=== PATIENT | female | born 1940 | race Caucasian/White ===

== ENCOUNTER 2023-06-04 14:23 | Emergency (ER) | payer MEDICARE, MEDICAID, SELFPAY ==
[2023-06-04] VITALS (11 sets, daily range): BP systolic 122–143; BP diastolic 58–74; PULSE 63–101; RESP 14–20; TEMP 35.9; O2SAT 96–100
--- NOTE | ~2023-06-04 | CT_ITS ---
EXAMINATION: CT abdomen pelvis w con DATE: 06/04/2023 16:05 INDICATION: abdominal pain TECHNIQUE: Computed tomography (CT) of the abdomen and pelvis was performed with 100 mL Omnipaque-350 intravenous contrast. Automated exposure control and iterative reconstruction technique were employe d. The dose-length product was 1494.59 mGy-cm. COMPARISON: None. FINDINGS: Lower thorax: Lingular and right middle lobe scar/atelectasis. Left lower lobe air cyst. Cardiomegaly . Coronary artery calcifications. Liver: Nodular liver border. Biliary/Gallbladder: Gallbladder is absent. No bile duct dilation. Pancreas: Fatty infiltration. Spleen: Granulomatous calcifications. Adrenals:No mass. Kidneys: No suspicious mass. Bilateral scarring and cortical thinning. Mild bilateral perinephric str anding. No obstructing calcification mild right pelviectasis and bilateral mid ureteral dilation, no obstructing calcification or mass. GI tract: Mild distal esophageal and antral wall edema. No small or large bowel dilation. Appendix no t visualized. Mesentery/Peritoneum: No ascites, mass, or free air. Retroperitoneum: No mass. Atherosclerotic abdominal aortic and/or arterial calcifications. Pelvis: Normal appearing urinary bladder. Absent uterus. Soft Tissues: Soft tissues and body wall unremarkable. Bones: No acute osseous finding. IMPRESSION: Mild esophagitis and antral gastritis. Nodular appearing liver border which can be seen with cirrhosis. Mild right pelviectasis and bilateral mid ureterectasis, no inflammatory changes or obstructing stone or mass detected. Reviewed, dictated and finalized at location K. S MANAGER IMPRESSION: Mild esophagitis and antral gastritis. Nodular appearing liver border which can be seen with cirrhosis. Mild right pelviectasis and bilateral mid ureterectasis, no inflammatory change s or obstructing stone or mass detected.
--- NOTE | 2023-06-04 14:35 | ED.ABDPAIN ---
HPI - Abdominal Pain General Chief Complaint: Abdominal Pain Stated Complaint: constipation with difficulty urinating Time Seen by Provider: 06/04/23 14:35 History of Present Illness HPI narrative: Patient is an 82-year-old female with history of AFib, chronic constipation here with constipation. She states that it has probably been about 2 weeks and she has been able to have a full bowel movement, her last stool output was a very small stool on 05/30. At home she has been using multiple ocos-lck-qaehmin treatments including suppositories, fleets enemas, laxatives without any improvement of her symptoms. She has had some increasing abdominal distension over this last week and she has now developed difficulty urinating which she suspects is due to her constipation. Last flatulence was sometime yesterday, is not passing flatulence today. She does note a prior cholecystectomy in the past. No nausea or vomiting. No prior history of obstruction. She denies any fever or chills. She is unsure of when her last colonoscopy was but believes it was normal. She has been struggling with constipation for the last 1 year intermittently, has not seen any specialist for this. Related Data Allergies Allergy/AdvReac Type Severity Reaction Status Date / Time No Known Allergies Allergy Unverified 06/04/23 14:23 Review of Systems Review of Systems: All systems reviewed & are unremarkable except as noted in HPI and below Exam Narrative: GENERAL: Well-appearing, well-nourished, and in no acute distress. HEAD: Normocephalic, atraumatic. EYES: PERRLA and EOMI. ENT: Nares clear. Mucous membranes moist. NECK: Supple. CHEST: Clear to auscultation. No respiratory distress. HEART: Regular rate and rhythm. Normal peripheral pulses. ABDOMEN: Soft, diffusely mildly tender with some abdominal distention present. EXTREMITIES: Normal range of motion. No edema. SKIN: Warm, dry, no rash. NEURO: No focal deficits. Alert and oriented x3. PSYCH: Normal mood and affect. Course Course Emergency Course: Chart review performed. Patient is here with abdominal pain and constipation, last BM Monday. No prior visits in our system. Patient seen evaluated, nontoxic appearing. Concern for obstruction versus constipation versus fecal impaction. Given age will do CT abdomen pelvis to assess for possible obstructing mass. Basic lab work and UA have also been ordered. Anticipate she will likely need fecal disimpaction and enema was performed here in the emergency department however will await imaging prior to intervention. CT grossly normal, on my review she does appear to have a large amount of stool within the colon and rectum. 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 Stool felt high up within the rectal vault however unable to reach sufficiently for disimpaction. Fleets enema given by RN. Discussed plan for continued home enemas and aggressive bowel clearance orally. She has been able to pee here multiple times without difficulty. The results of pertinent diagnostic studies and exam findings were discussed. The patient?s provisional diagnosis and plan of care were discussed with the patient and present family. The patient and/or present family expressed understanding of the diagnosis and plan. The nurse was instructed to provide written instructions and appropriate follow-up information. The patient understands their need and responsibility to obtain additional follow-up as instructed. The risks of medications administered and prescribed were discussed with the patient and family present. Vital Signs Vital signs: Vital Signs Temperature 96.7 F L 06/04/23 14:29 Pulse Rate 101 H 06/04/23 14:29 Respiratory Rate 18 06/04/23 14:29 Pulse Oximetry 100 06/04/23 14:29 Oxygen Delivery Room Air 06/04/23 14:29 Temperature 96.7 F L 06/04/23 14:29 Pulse Rate 66 06/04/23 17:33 Respiratory Rate 16 06/04/23 17:33 Blood Pressure 124/74 11
--- NOTE | 2023-06-04 14:36 | ECG_ITS ---
Measurements Intervals [place] Rate: 62 P: IN: 0 QRS: 29 QRSD: 82 T: 55 QT: 383 QTc: 390 Interpretive Statements ATRIAL FIBRILLATION LOW QRS VOLTAGE IN PRECORDIAL LEADS BASELINE ARTIFACT- I, II, III, AVR, AVF ABNORMAL ECG NO PREVIOUS ECG AVAILABLE FOR COMPARISON Electronically Signed On 06-04-2023 20:21:35 GYRO MECHANIC by Omer Fajardo D.O.
[2023-06-04 15:01] LABS: Basophils Absolute Auto 0.1 K/mm3 (0.0-0.1); Basophils Percent Auto 0.8 % (0.2-1.2); Eosinophils Absolute Auto 0.2 K/mm3 (0-0.3); Eosinophils Percent Auto 2.3 % (0-4.4); Hematocrit 37.2 % (37.0-47.0); Hemoglobin 11.8 g/dL (12.0-15.0); Immature Granulocyte Absolute 0.03 K/mm3 (0.00-0.031); Immature Granulocyte Percent A 0.5 % (0-0.5); Lymphocytes Absolute Auto 1.75 K/mm3 (0.9-3.2); Lymphocytes Percent Auto 26.9 % (18.3-44.2); Mean Corpuscular HGB Conc 31.7 g/dl (32-36); Mean Corpuscular Hemoglobin 31.1 pg (26-34); Mean Corpuscular Volume 97.9 fl (80-100); Mean Platelet Volume 10.4 fl (7.4-10.4); Monocytes Absolute Auto 0.5 K/mm3 (0.1-0.6); Monocytes Percent Auto 7.1 % (2.6-8.5); Neutrophils Absolute Auto 4.1 K/mm3 (1.3-6.7); Neutrophils Percent Auto 62.4 % (45.5-73.1); Platelet Count Result 237 k/mm3 (150-375); White Blood Count 6.5 K/mm3 (4.5-10.0)
[2023-06-04 15:09] LABS: Lactic Acid Reflex 1.5 mmol/L (0.7-2.0)
[2023-06-04 15:10] LABS: Alanine Aminotransferase 22 U/L (6-35); Albumin Level 4.2 g/dL (3.5-5.1); Alkaline Phosphatase 43 U/L (38-126); Anion Gap 6 mmol/L (8-16); Aspartate Amino Transferase 49 U/L (14-36); Bilirubin,Total 0.7 mg/dL (0.2-1.3); Blood Urea Nitrogen 20 mg/dL (7-17); Calcium 9.4 mg/dL (8.4-10.2); Carbon Dioxide 30 mmol/L (22-30); Chloride 103 mmol/L (98-107); Estimated CRCL calculation 37 ml/min; Estimated Glomerular Filt Rate 36; Glucose 106 mg/dL (65-110); Lipase 67 U/L (23-300); Potassium 3.9 mmol/L (3.4-5.0); Sodium 139 mmol/L (137-145)
[2023-06-04 15:14] LABS: INR 1.3; Prothrombin Time 16.5 Seconds (11.1-14.7)
[2023-06-04 15:15] LABS: Partial Thromboplastin Time 28.4 SECONDS (22.3-36.8)
[2023-06-04 15:43] LABS: Appearance Urine Clear (Clear); Bilirubin Urine Negative (Negative); Blood Urine Negative (Negative); Color Urine Yellow (Yellow); Glucose Urine UA Negative (Negative); Ketones Urine Negative (Negative); Leukocyte Esterase Ur Negative LEU/UL (Negative); Nitrate Urine Negative (Negative); Protein Urine Negative (Negative); Urobilinogen Urine 0.2 mg/dL (<2.0)
[2023-06-04 16:03] LABS: Add Urine Microscopic? NO
--- NOTE | 2023-06-04 19:23 | PC.NURSE ---
Report received from TRUPTI Williamson. Assumed care of patient at this time.
== END 2023-06-04 20:20 | disposition home or self-care (01) ==
PROVIDERS: Emergency Provider Student in an Organized Health Care Education/Training Program
DX: K59.00 Constipation, unspecified (principal); I48.91 Unspecified atrial fibrillation; Z90.49 Acquired absence of other specified parts of digestive tract; K20.90 Esophagitis, unspecified without bleeding; K29.70 Gastritis, unspecified, without bleeding; R93.2 Abnormal findings on diagnostic imaging of liver and biliary tract
CPT/HCPCS: 36415; 74177; 80053; 81003; 83605; 83690; 85025; 85610; 85730; 93005; 99284; Q9967

== ENCOUNTER 2024-08-26 17:52 | Emergency (ER) | payer MEDICARE, MEDICAID, SELFPAY ==
--- NOTE | ~2024-08-26 | XR_ITS ---
EXAMINATION: XR chest 2V Exam Date/Time: 08/26/2024 18:25 SALES PROFESSIONAL BILINGUAL HISTORY: cp Comparison: 07/02/2014. RESULT: Lines, tubes, and devices: None. Lungs and pleura: Clear. Cardiomediastinal silhouette: Stable. Calcified nodes. Other: No acute osseous or upper abdominal finding. IMPRESSION: No acute cardiopulmonary process. Reviewed, dictated and finalized at location K. S PROFESSIONAL BILINGUAL
--- NOTE | 2024-08-26 17:56 | ECG_ITS ---
Test Date: 2024-08-26 18:03:01 Measurements Intervals [place] Rate: 68 P: 0 IN: 0 QRS: 33 QRSD: 75 T: 60 QT: 382 QTc: 408 Interpretive Statements ATRIAL FIBRILLATION LOW QRS VOLTAGE IN PRECORDIAL LEADS BASELINE ARTIFACT- I, II, III, AVR, AVL, AVF, V2-V3 ABNORMAL ECG No previous ECG available for comparison Electronically Signed On 08-26-2024 19:06:46 ASSISTANT IMPORT MANAGER by Omer Fajardo D.O.
[2024-08-26 18:17] VITALS: BP 132/64; PULSE 61; RESP 14; TEMP 36.4; O2SAT 96
[2024-08-26 18:28] LABS: Basophils Absolute Auto 0.1 K/mm3 (0.0-0.1); Basophils Percent Auto 1.7 % (0.2-1.2); Eosinophils Absolute Auto 0.1 K/mm3 (0-0.3); Eosinophils Percent Auto 1.7 % (0-4.4); Hematocrit 35.2 % (37.0-47.0); Hemoglobin 11.1 g/dL (12.0-15.0); Immature Granulocyte Absolute 0.01 K/mm3 (0.00-0.031); Immature Granulocyte Percent A 0.2 % (0-0.5); Lymphocytes Absolute Auto 1.54 K/mm3 (0.9-3.2); Lymphocytes Percent Auto 37.1 % (18.3-44.2); Mean Corpuscular HGB Conc 31.5 g/dl (32-36); Mean Corpuscular Hemoglobin 30.3 pg (26-34); Mean Corpuscular Volume 96.2 fl (80-100); Mean Platelet Volume 10.6 fl (7.4-10.4); Monocytes Absolute Auto 0.4 K/mm3 (0.1-0.6); Monocytes Percent Auto 8.4 % (2.6-8.5); Neutrophils Absolute Auto 2.1 K/mm3 (1.3-6.7); Neutrophils Percent Auto 50.9 % (45.5-73.1); Platelet Count Result 261 k/mm3 (150-375); Red Blood Count 3.66 M/mm3 (4.2-5.4); Red Cell Distribution Width 13.4 % (11.5-14.5); White Blood Count 4.2 K/mm3 (4.5-10.0)
[2024-08-26 18:44] LABS: Alanine Aminotransferase 20 U/L (6-35); Albumin Level 4.4 g/dL (3.5-5.1); Alkaline Phosphatase 45 U/L (38-126); Anion Gap 8 mmol/L (4-12); Aspartate Amino Transferase 45 U/L (14-36); Bilirubin,Total 0.7 mg/dL (0.2-1.3); Blood Urea Nitrogen 21 mg/dL (7-17); Calcium 9.9 mg/dL (8.4-10.2); Carbon Dioxide 33 mmol/L (22-30); Chloride 98 mmol/L (98-107); Estimated CRCL calculation 34 ml/min; Estimated Glomerular Filt Rate 34; Glucose 87 mg/dL (65-110); Lipase 57 U/L (23-300); Potassium 4.4 mmol/L (3.4-5.0); Sodium 139 mmol/L (137-145)
--- OUTSIDE RECORDS SUMMARY | 2024-08-26 18:50 | XMS_ITS | Referral Summary ---
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 - [address] [place] [phone] Brigitte Foley MD Referral Request 08/22/2024 Orders Only [facility] Primary Care at [address] [phone] Brigitte Foley MD Abnormal mammogram of right breast (Primary Dx) 08/20/2024 1:57 PM HOME TEACHING GRADES 7 AND 8 TEACHER - 08/20/2024 11:59 PM HOME TEACHING GRADES 7 AND 8 TEACHER Hospital Encounter [facility] Radiology [address] [place] [address] Screening mammogram, encounter for Discharge Disposition: Discharge to home or self care 08/07/2024 Telephone [facility] at [address] [place] [phone] Brigitte Foley MD 08/02/2024 Telephone [facility] at [address] [place] [address] Fredy Lozada MD Anticoagulation 08/02/2024 Telephone [facility] at [address] [phone] Brigitte Foley MD Medical Question/Miscellaneous 08/02/2024 1:12 PM HOME TEACHING GRADES 7 AND 8 TEACHER - 08/02/2024 11:59 PM HOME TEACHING GRADES 7 AND 8 TEACHER Hospital Encounter [facility] at [address], [address] [place] [phone] Fredy Lozada MD Spinal stenosis of lumbar region with neurogenic claudication (Primary Dx) Discharge Disposition: Discharge to home or self care 07/26/2024 Telephone [facility] at [address] [phone] Brigitte Foley MD Medical Records Request 07/17/2024 Telephone [facility] at [address] [phone] Brigitte Foley MD Additional Services Or Orders; Medical Question/Miscellaneous 07/11/2024 Orders Only [facility] at [address] [phone] Brigitte Foley MD 07/11/2024 Telephone [facility] at [address] [place] [phone] Brigitte Foley MD 2024 Telephone [facility] at [address], [address] [place] [phone] Fredy Lozada MD Anticoagulation 07/04/2024 Telephone [facility] at [address], [address] [place] [phone] Katia Sneed RN PMC Intake Assessment 07/02/2024 Telephone [facility] at [address] [phone] Brigitte Foley MD Medical Question/Miscellaneous 07/01/2024 10:30 AM HOME TEACHING GRADES 7 AND 8 TEACHER Office Visit [facility] at [address] [phone] Brigitte Foley MD Acquired hypothyroidism (Primary Dx); Stage 3a chronic kidney disease (HCC); Spinal stenosis of lumbar region with neurogenic claudication; Screening for viral disease; PAF (paroxysmal atrial fibrillation) (CMS/HCC) (HCC); Essential hypertension; Morbid obesity with BMI of 45.0-49.9, adult (HCC); Mild episode of recurrent major depressive disorder (HCC) 06/28/2024 Telephone [facility] at [address] [phone] Brigitte Foley MD Referral Request; Recommendation Request 06/26/2024 Nurse Triage [facility] at [address] [phone] Brigitte Foley MD 06/26/2024 Telephone [facility] at [address] [phone] Brigitte Foley MD Referral Request 06/21/2024 Telephone [facility] at [address] [place] [phone] Brigitte Foley MD Call Back; Medical Question/Miscellaneous from Last 3 Months Allergies Active Allergy Reactions Criticality Noted Date Comments Codeine Stomach upset Low 03/11/2018 TOLERATES MORPHINE 09/07/18 Medications magnesium H-pvfzbz-roiduq amide 42 mg (500 mg)- 250 mg tablet extended release Take 250 mg by mouth daily Active ferrous sulfate 325 mg (65 mg of elemental iron) tablet Take 1 tablet (325 mg total) by mouth every other day Active Rinvoq 15 mg tablet extended release 24 hr Take 1 tablet (15 mg total) by mouth daily 01/31/20 21 Active cyanocobalamin (Vitamin B-12) 1,000 mcg tabletIndicatio ns:Prevention of Vitamin B12 Deficiency Take 1 tablet (1,000 mcg total) by mouth daily Active cholecalciferol (VITAMIN D-3) 5,000 unit capsule Take 1 capsule (5,000 Units total) by mouth daily Active budesonide-form oteroL (SYMBICORT) 160-4.5 mcg/actuation inhalerIndicati ons:Bronchospas m Prevention with COPD Inhale 2 puffs 2 (two) times a day Rinse mouth with water after use. Do not swallow. 3 each 2 08/10/19 22 Active blood-glucose meter kitIndications: Borderline diabetes 1 kit daily Please use to check one time daily 1 kit 03/21/20 22 Active freestyle 28 gauge lancets PLEASE USE TO CHECK ONCE DAILY 03/29/20 22 Active gabapentin (NEURONTIN) 300 mg capsule Take 1 capsule (300 mg total) by mouth 3 (three) times a day 270 capsule 1 06/15/20 23 Active albuterol HFA (PROVENTIL HFA,VENTOLIN HFA,PROAIR HFA) 90 mcg/actuation inhaler Inhale 2 puffs every 6 (six) hours as needed for wheezing 18 each 1 08/16/19 24 Active lancets miscIndications :Borderline diabetes Please use to check one time daily 100 each 2 08/16/19 24 Active polyethylene glycol (MIRALAX) 17 gram/dose bulk powder Take 17 g by mouth daily 850 g 1 09/05/19 24 Active Accu-Chek Guide test strips strip USE TO CHECK BLOOD SUGAR 1-2 TIMES DAILY 200 strip 3 11/23/19 24 Active losartan (COZAAR) 50 mg tabletIndicatio ns:Essential hypertension Take 1 tablet (50 mg total) by mouth 2 (two) times a day 180 tablet 1 01/10/[address] (CYMBALTA) 60 mg capsuleIndicati ons:Mild episode of recurrent major depressive disorder (HCC),Back pain with left-sided sciatica TAKE 1 CAPSULE TWICE DAILY 180 capsule 3 01/29/20 24 Active fluticasone propionate (FLONASE) 50 mcg/actuation nasal sprayIndication s:Chronic Non-Allergic Rhinitis ADMINISTER 1 SPRAY INTO EACH NOSTRIL 2 (TWO) TIMES A DAY NEEDED FOR RHINITIS 48 g 02/10/20 24 Active torsemide (DEMADEX) 20 mg tablet TAKE 1 TABLET TWICE DAILY 180 tablet 3 02/12/20 24 Active fenofibrate (TRIGLIDE) 160 mg tablet TAKE 1 TABLET EVERY DAY 90 tablet 3 02/14/20 24 Active omeprazole (PriLOSEC) 20 mg capsule TAKE 1 CAPSULE EVERY DAY 90 capsule 3 04/12/20 24 Active Eliquis 5 mg tabletIndicatio ns:PAF (paroxysmal atrial fibrillation) (CMS/HCC) ([facility]) TAKE 1 TABLET TWICE DAILY 180 tablet 3 04/12/20 24 Active ezetimibe (ZETIA) 10 mg tabletIndicatio ns:Dyslipidemia TAKE 1 TABLET EVERY DAY 100 tablet 1 05/01/20 24 Active rosuvastatin (CRESTOR) 5 mg tablet TAKE 1 TABLET EVERY OTHER DAY 45 tablet 3 08/01/19 25 Active spironolactone (ALDACTONE) 25 mg tabletIndicatio ns:Essential hypertension,Bi lateral lower extremity edema TAKE 1 TABLET EVERY DAY 90 tablet 3 08/01/19 25 Active levothyroxine (SYNTHROID) 100 mcg tablet Take 1 tablet (100 mcg total) by mouth daily 90 tablet 1 08/02/19 25 Active rosuvastatin (CRESTOR) 5 mg tablet Take one a tablet by mouth every other day 45 tablet 3 06/13/20 23 025 Discontinued spironolactone (ALDACTONE) 25 mg tabletIndicatio ns:Essential hypertension,Bi lateral lower extremity edema Take 1 tablet (25 mg total) by mouth daily 90 tablet 3 06/13/20 23 025 Discontinued levothyroxine (SYNTHROID) 100 mcg tablet Take 1 tablet (100 mcg total) by mouth daily 90 tablet 1 04/26/20 24 025 Discontinued(R eorder) Active Problems Problem Noted Date Diagnosed Date Arthritis of left knee 08/21/2023 Assessment & Plan (08/21/2023 2:48 PM HOME TEACHING GRADES 7 AND 8 TEACHER): Radiographically the patient has fairly advanced arthritis of the left knee with reactive synovitis clinically. She has a poor operative candidate having circulatory problems and morbid obesity. Would recommend non operative treatment for her knee. After reviewing the treatment options the patient elected undergo a cortisone injection today due the severity of her symptoms. She tolerated the procedure well. Long-term significant weight loss would be beneficial. 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 She does have underlying neuropathy would be vulnerable to development of a Charcot joint. She most likely should be seen by a project controls specialist referral to Dr. Martinez was given. She is wearing poorly made shoes for someone with neuropathy. Peripheral arterial disease 08/21/2023 Assessment & Plan (08/21/2023 2:48 PM HOME TEACHING GRADES 7 AND 8 TEACHER): Patient likely has significant peripheral arterial disease in her leg. Her diabetes and previous smoking with hypertension likely exacerbate her condition. Would recommend evaluation by a vascular specialist as bypass or stenting may be needed. 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 Does not want additional injections. Has opiates. Concerned for resp suppression. Spondylosis of lumbar region without myelopathy or radiculopathy 08/17/2021 Osteopenia of left thigh 04/28/2021 Assessment & Plan (04/28/2021 6:31 AM CDT): Counseled on use of calcium and vitamin-D as well as weight-bearing exercise for lower extremities. Will repeat 2 years. Encounter for long-term (cur rent) use of high-risk medication 04/28/2021 Assessment & Plan (04/28/2021 6:32 AM CDT): Currently taking Rinvoq as well as Arava. Monitor blood work with Rheumatology. Notes new headache on rinvoq. Statin myopathy 04/27/2021 Assessment & Plan (04/28/2021 6:27 AM CDT): Discuss. Patient reports having tried over 3 different statins without successful use. Generalized body ache. Persistent atrial fibrillation 03/26/2021 Assessment & Plan (07/17/2022 10:54 PM HOME TEACHING GRADES 7 AND 8 TEACHER): Continue Eliquis 5 mg b.i.d. asymptomatic per her report. Continue to monitor. Assessment & Plan (03/16/2022 11:01 PM CDT): Chronic. Rare. Continue current regimen per cardiology. Assessment & Plan (11/11/2021 9:50 AM CDT): Intermittent palpitations continue. Has appointment to see cardiology-Dr. Cosby. She is taking her Eliquis. Assessment & Plan (08/03/2021 6:14 AM HOME TEACHING GRADES 7 AND 8 TEACHER): Continue to follow-up with Dr. Seaman. Currently taking Eliquis daily. SOB is noted, but unchanged. Assessment & Plan (04/28/2021 6:19 AM CDT): Continue to follow-up with Dr. Seaman. Currently taking Eliquis daily. Asymptomatic currently. BENITEZ on CPAP 01/27/2021 Assessment & Plan (07/17/2022 11:06 PM HOME TEACHING GRADES 7 AND 8 TEACHER): Still using nightly. Assessment & Plan (04/26/2022 1:55 PM CDT): Has been using device 10-12 hrs with mild interruption for urination. Assessment & Plan (03/16/2022 11:03 PM CDT): Has continued to be adherent to nightly use next. No concerns at present. Assessment & Plan (11/11/2021 9:50 AM CDT): Is using nightly. Doing well. Assessment & Plan (08/03/2021 6:15 AM HOME TEACHING GRADES 7 AND 8 TEACHER): Doing well on CPAP. Continue to follow-up with Dr. Wiley. Assessment & Plan (04/28/2021 6:27 AM CDT): Doing very well on new CPAP machine. Reports that she is able to sleep. Continue to follow-up with Dr. Wiley. Assessment & Plan (01/27/2021 7:00 AM CDT): Has discontinued use due to irritation from device. Counseled to follow-up with Sleep Medicine to discuss. Continues to have fatigue. Chronic bilateral low back pain without sciatica 01/27/2021 Assessment & Plan (03/16/2022 11:03 PM CDT): Has attempted PT, used pain mgmt, no relief. Chair exercises encouraged-youtube as an option. Assessment & Plan (04/28/2021 6:21 AM CDT): Daily. Worsening. Unable to ambulate for any period of time-grocery shopping is painful. Chores at home are painful. MRI ordered as arthritis is noted to be moderate. Assessment & Plan (01/27/2021 7:03 AM CDT): Will notify if she desires to follow-up with pain management. At this time patient will attempt Lyrica and Voltaren. Neuropathy 01/25/2021 Assessment & Plan (07/17/2022 10:55 PM HOME TEACHING GRADES 7 AND 8 TEACHER): Chronic. Stable. Continue Lyrica 25mg daily. Assessment & Plan (03/16/2022 11:04 PM CDT): Chronic. Noted to have some worsening of upper extremities. There is some thought to discontinue her Lyrica. Continue discussion with Rheumatology. Assessment & Plan (04/28/2021 6:28 AM CDT): Chronic improved on Lyrica 25 mg b.i.d.. Assessment & Plan (01/27/2021 6:57 AM CDT): Unclear etiology. Failed gabapentin. Start Lyrica. Noted to be most fingers and toes. Prediabetes 11/10/2020 Assessment & Plan (07/17/2022 10:57 PM HOME TEACHING GRADES 7 AND 8 TEACHER): Counseled on dietary recommendations regarding management. Overall is doing well. BG is 105 today. Assessment & Plan (03/16/2022 11:04 PM CDT): Labs reviewed today. Overall doing well with changes to dietary intake. Assessment & Plan (11/11/2021 9:52 AM CDT): Chronic. Labs reviewed. Continue to monitor diet. Chair exercise encouraged. Assessment & Plan (08/03/2021 6:16 AM HOME TEACHING GRADES 7 AND 8 TEACHER): Counseled on monitoring carbs-continues to struggle. 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 Last A1C 5.4 (05/2021). Assessment & Plan (04/28/2021 6:21 AM CDT): Labs today. Counseled on monitoring carbs. Assessment & Plan (01/27/2021 6:55 AM CDT): Improved from last. Labs reviewed with patient. Continue current. Mild episode of recurrent major depressive disor marilyn 09/17/2019 Assessment & Plan (07/17/2022 11:00 PM HOME TEACHING GRADES 7 AND 8 TEACHER): Improved. Overall feels that it is controlled. Duloxetine 60 mg BID. Assessment & Plan (03/16/2022 11:04 PM CDT): Stable. No additional concerns at this time. Getting out more frequently. Continue to monitor. Assessment & Plan (11/11/2021 9:52 AM CDT): Chronic. Mood has been improved. Advised on engaging in regular exercise to assist. Assessment & Plan (04/28/2021 6:29 AM CDT): Improved after room life event. Continue duloxetine as well as monitoring. Work on social activities to the best of her ability. Assessment & Plan (01/27/2021 7:04 AM CDT): Stable. Reports that she is bored more than depressed at this time. Continue to monitor. Assessment & Plan (10/31/2020 4:20 PM CDT): Mild improvement since COVID vaccine and talking with/seeing son and sisters again. COVID had been limiting. Assessment & Plan (08/07/2020 9:15 AM HOME TEACHING GRADES 7 AND 8 TEACHER): Improved. Has adjusted to COVID Assessment & Plan (01/16/2020 2:30 PM CDT): Con't cymbalta. Needs socialization-but COVID is an issue. Con't to talk with family. Assessment & Plan (10/07/2019 8:02 PM CDT): Stable. Not like previously. CV19 in community-is staying in-missing socialization. Talking with family. Con't cymbalta. Call if worsening. 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 Still has some issues with back pain. Con't to follow-up with Dr. Lerma. Assessment & Plan (04/27/2022 12:28 PM CDT): Has con't to follow-up to with Dr. Lerma. Notes significant deconditioning in lower extremities. Has [employer] video at home. Aware to use. Assessment & Plan (11/11/2021 9:55 AM CDT): Continue to follow-up with Rheumatology-Dr. Lerma. Off of arava. Is on renvoq with good response. Needs exercise to assist with maintaining mobility. Assessment & Plan (08/03/2021 6:18 AM HOME TEACHING GRADES 7 AND 8 TEACHER): ROM and arthralgias are improved on remvoq and use of lyrica. Varied daily, but milder than previous. Con't to follow-up with Dr. Lerma. Assessment & Plan (04/28/2021 6:23 AM CDT): Continue to follow-up with Rheumatology. She is currently on Arava, or Rinvoq, Lyrica, Cymbalta. There is mild improvement in her nerve pain pre continues to have pain in her shoulders low back. Assessment & Plan (01/27/2021 7:00 AM CDT): Has continue to follow-up with Rheumatology. Currently on prednisone with good result. Assessment & Plan (10/31/2020 4:18 PM CDT): Con't to f/u w/ Dr. Lerma. She has not had much further improvement on Arava. Had some, but has stopped working. She is feeling mild improvement with gabapentin. Refill provided. She is due for labs. Would like to have joint injections to assist. Assessment & Plan (08/07/2020 10:26 AM HOME TEACHING GRADES 7 AND 8 TEACHER): Con't to f/u with Dr. Lerma. Some concerns for increased OA in Low back. Celebrex to assist. Counseled physical activity will help with this also. Assessment & Plan (10/07/2019 7:41 PM CDT): Improving, but not completely. Still working with Dr. Hernandez. Some improvement with arava. Assessment & Plan (07/26/2019 10:08 PM HOME TEACHING GRADES 7 AND 8 TEACHER): Con't f/u with Dr. Lerma. On Arava x 2 days. No improvement as of yet. Aware of immune suppression. Morbid obesity with BMI of 45.0-49.9, adult ([facility]) 01/02/2019 Assessment & Plan (08/21/2023 2:49 PM HOME TEACHING GRADES 7 AND 8 TEACHER): Patient's current weight provides with a BMI over 48. Would highly encourage the patient work on a graduated low-impact exercise program in conjunction with proper dieting. This will reduce stress on her knee and may improve the natural longevity of the joint Assessment & Plan (08/03/2021 6:16 AM HOME TEACHING GRADES 7 AND 8 TEACHER): Bmi-46.5. BMI Follow-up includes: nutrition counseling. Assessment & Plan (04/28/2021 6:24 AM CDT): Body mass index is 46.96 kg/m . BMI Follow-up includes: exercise counseling and including chair exercises- website given.. Assessment & Plan (01/27/2021 6:56 AM CDT): BMI Follow-up includes: education provided. Assessment & Plan (10/31/2020 4:20 PM CDT): Today 45.5, was 47.7 in July. Con't dietary monitoring. Work on increasing physical activity. Assessment & Plan (08/09/2020 7:57 PM HOME TEACHING GRADES 7 AND 8 TEACHER): Worsening-but is not able to leave her home for regular exercise regimen-COVID limiting. Assessment & Plan (10/08/2019 7:05 PM CDT): BMI Follow-up includes: education provided. Assessment & Plan (04/11/2019 10:54 AM CDT): BMI Follow-up includes: education provided. Assessment & Plan (01/02/2019 8:49 AM CDT): Maintain a healthy weight and healthy diet, increase physical activity. Individuals with a healthy diet: Consume a variety of nutrient-dense foods within and across the food groups, especially whole grains, fruits, vegetables, low-fat or fat-free milk or milk products, and lean meats. Limit the intake of saturated and trans fats, cholesterol, added sugars, sodium (salt), and alcohol. Limit caloric intake to meet caloric needs. Why Are Nutrition and Weight Status Important? A healthy diet helps people reduce their risks of developing conditions such as overweight, obesity, heart disease, high blood pressure, constipation, diabetes, diverticulosis, some cancers. (Source: [employer]gov) Gastroesophageal reflux disease 01/02/2019 Assessment & Plan (04/28/2021 6:23 AM CDT): Controlled. Monitoring diet will make improvement. Continue omeprazole p.r.n.. Assessment & Plan (01/02/2019 8:46 AM CDT): Ongoing acid reflux. Acid reflux handout given. The goal of acid reflux (heartburn or GERD) treatment is to alleviate symptoms, heal esophageal lining damage, and prevent complications. Lifestyle modifications (recommended along with pharmacological therapy). - Avoid provocative foods: citrus, alcohol, coffee, chocolate, mints, onion, garlic, spicy or fatty foods. - Decrease consumption or avoid alcohol, caffeine, and acidic foods that aggravate symptoms. - Avoid second hand smoking. - Maintain a healthy weight. Lack of exercise or inactivity leads to slow digestion. - Eat smaller meals, no eating three hours prior to bedtime. - Consider elevation of the head of the bed while sleeping if your symptoms are bothersome in bed. Primary osteoarthritis involving multiple joints 11/13/2018 Assessment & Plan (04/28/2021 6:30 AM CDT): Chronic. Continue to follow-up with Rheumatology MRI is ordered for lumbar spine. Work to increase physical activity. Assessment & Plan (11/13/2018 4:27 PM CDT): Start on mobic. Not previously on. Discussed wt loss-exercise primarily. Diet is limited by pain-not getting up to move around to manage. Awaiting records from previous ? Pain mgmt referral was ??? Weakness of right lower extremity 10/14/2018 Assessment & Plan (10/14/2018 7:40 PM CDT): PT ordered. Continue use of can/assistive devices. Muscular deconditioning 10/14/2018 Assessment & Plan (10/31/2020 4:19 PM CDT): Would benefit from regular exercise/stretching. Has bands, pedaling device etc. Motivation reported to be concern at time. Assessment & Plan (11/13/2018 4:27 PM CDT): Is going to d/c PT due to transportation/cost. Will start going to local gym 2-3 x weekly. Is not able to walk the pool-deconditioned. Assessment & Plan (10/14/2018 7:40 PM CDT): PT referral provided. R>LLE. Bilateral lower extremity edema 10/02/2018 Assessment & Plan (07/26/2019 10:04 PM HOME TEACHING GRADES 7 AND 8 TEACHER): Stable. Unchanged. Counseled on need for wt loss, increasing mobility, use of compression stocking. Did not take lasix prior to leaving house. Assessment & Plan (10/14/2018 7:39 PM CDT): Continue use of lasix. ? Lymphedema. Compression stockings recommended. History of anemia 05/16/2018 Assessment & Plan (11/11/2021 9:59 AM CDT): Labs today. Continue current ferrous sulfate and MVI. Suspect from renvoq. Monitor. Assessment & Plan (04/28/2021 6:26 AM CDT): Labs today. Continue current-encouraged daily multivitamin. Assessment & Plan (08/09/2020 7:52 PM HOME TEACHING GRADES 7 AND 8 TEACHER): Labs today. Continue current. Essential hypertension 05/16/2018 Assessment & Plan (07/17/2022 10:59 PM HOME TEACHING GRADES 7 AND 8 TEACHER): Controlled. Continue current regimen losartan 50, amlodipine 5 mg. Assessment & Plan (03/16/2022 11:05 PM CDT): Insert chronic. Controlled. Continue amlodipine as well as furosemide per Cardiology. Assessment & Plan (11/11/2021 9:59 AM CDT): Did not take MEASUREMENT AND VERIFICATION ENGINEER. Continue current regimen lasix, losartan, amlodipine. Call with home readings. Assessment & Plan (08/03/2021 6:17 AM HOME TEACHING GRADES 7 AND 8 TEACHER): Marginal control. Was seen by cardiology without adjustment made. Counseled to monitor at home. Goal is <140/90. Assessment & Plan (04/28/2021 6:26 AM CDT): Controlled. Continue current regimen of losartan 50, furosemide 40 b.i.d., amlodipine 5. Assessment & Plan (01/27/2021 6:56 AM CDT): Controlled. Continue current regimen amlodipine 5 mg, losartan 50. Assessment & Plan (10/31/2020 4:20 PM CDT): Controlled. Continue current regimen. Assessment & Plan (08/09/2020 7:52 PM HOME TEACHING GRADES 7 AND 8 TEACHER): Elevated-but has not taken medications today. Aware that she should check later today. Has been running in the 150/60s-but not taking lasix consistently. Taking amlodipine, lasix, losartan. Avoiding BB-bradycardia. Assessment & Plan (01/16/2020 2:31 PM CDT): Counseled needs to monitor. At this time, pt believes bystolic causing edema. Will stop and change to amlodipine due to HR in the 40s. Needing cardiac eval. Declined. Wants to go to [facility]. Assessment & Plan (10/07/2019 8:38 PM CDT): Controlled. Continue current regimen. Normal rate and rhythm with repeat. Suspect oximeter issue. No pauses. Just CP. Lasting more than 1/2 hr at a time. Assessment & Plan (07/26/2019 10:06 PM HOME TEACHING GRADES 7 AND 8 TEACHER): Controlled. Continue current regimen. Assessment & Plan (04/11/2019 10:55 AM CDT): Controlled. Continue current regimen. Counseled on low sodium and to participate in 150 min of activity/wk. Assessment & Plan (12/26/2018 8:56 PM CDT): Controlled. Continue current regimen. Assessment & Plan (10/14/2018 7:38 PM CDT): Controlled. Continue current regimen. Hypothyroidism 05/16/2018 Assessment & Plan (07/17/2022 10:59 PM [employer] TEACHER): Controlled. Continue current regimen of levothyroxine 125 mcg M/W/F/Sun, 137 mcg TR and Sat. Asymptomatic. Assessment & Plan (03/16/2022 11:05 PM CDT): Labs reviewed. Continue current 125 mcg/137 mcg rotation. Assessment & Plan (11/11/2021 9:56 AM CDT): Labs today. Continue current rotation of 137 on TRSat, 125 MWFSun Assessment & Plan (04/28/2021 6:26 AM CDT): Labs today. Continue current levothyroxine 125, in 137Tues, , Monday (on rotation). Assessment & Plan (01/27/2021 6:57 AM CDT): Controlled. Continue current regimen of levothyroxine 125 and 137 rotating. Assessment & Plan (08/07/2020 10:25 AM [employer] TEACHER): New tremor. Labs as ordered.Pt aware of possible cause. Assessment & Plan (01/16/2020 2:30 PM CDT): Labs today. Continue current. Constipation and edema are both reported. MDD is chronic. Assessment & Plan (07/26/2019 10:07 PM [employer] 8 TEACHER): Labs today. Continue current. ? Wt gain-although unlikely. Assessment & Plan (05/04/2019 8:35 PM CDT): Taking dosing as prescribed with rotation between 137mcg and 125 mcg. Improving. Assessment & Plan (04/24/2019 11:01 AM CDT): Labs today. Continue current. + symptomatic. + fatigue. + hair/skin change. Assessment & Plan (11/13/2018 4:28 PM CDT): Hair pattern change, fatigue. Bowel habit normal. Labs ordered. ? Change in levothyroxine strategic solutions consultant causing change. Assessment & Plan (10/02/2018 12:17 PM CDT): Mild elevation while hospitalized. Could be concentration-will recheck at 4 wk tamara. Change in bowel habit. Fibromyalgia Assessment & Plan (04/28/2021 6:30 AM CDT): Chronic. Improving on Cymbalta and Lyrica. Assessment & Plan (11/13/2018 4:30 PM CDT): Needing records from previous provider. Minimal improvement w/ gabapentin. To taper off. Start mobic. Continue cymbalta. Assessment & Plan (10/14/2018 7:38 PM CDT): Deconditioned. PT ordered. Continue on the gabapentin/cymbalta. Get in water. May benefit from rheumatology referral. Cost is concern. COPD (chronic obstructive pulmonary disease) Assessment & Plan (07/17/2022 10:58 PM [employer] TEACHER): Controlled. Continue current regimen of PRN albuterol and regular use of symbicort. Assessment & Plan (03/16/2022 11:05 PM CDT): Stable. Continue current p.r.n. albuterol as well as daily Symbicort. Assessment & Plan (11/11/2021 9:56 AM CDT): Chronic. Stable. Continue current regimen-symbicort, albuterol prn. Assessment & Plan (08/03/2021 6:17 AM [employer] 8 TEACHER): Mild changes. Advised on which medication is rescue and which is rescue-had reversed. Continue current. Albuterol p.r.n. as well as Symbicort. Assessment & Plan (04/28/2021 6:25 AM CDT): Stable. Continue current. Albuterol p.r.n. as well as Symbicort. Assessment & Plan (10/31/2020 4:21 PM CDT): Stable when in doors. Con't current regimen. Assessment & Plan (08/09/2020 7:54 PM [employer] 8 TEACHER): Moderately controlled. Would like to see pulmonology for BENITEZ. Improves some symptoms with use of inhalers. Unsure if BENITEZ contributing. Assessment & Plan (10/08/2019 7:00 PM CDT): Not using symbicort consistently. Wheezing has been improving with use of albuterol. Counseled to utilize, but as warranted steroids or antibx to be called out. Pt just recently completed round of both. Assessment & Plan (07/26/2019 10:06 PM [employer] 8 TEACHER): Mild wheeze today. Start steroids. Counseled on use of NOLBERTO. RTO if not improving, fever, etc. Assessment & Plan (04/24/2019 11:00 AM CDT): Controlled. Continue current regimen. Assessment & Plan (12/26/2018 8:55 PM CDT): COPD is worsening.Referral to pulm. Previously discussed-PFT had been declining. Assessment & Plan (10/14/2018 7:39 PM CDT): Controlled. Continue current regimen. Resolved Problems Problem Noted Date Diagnosed Date Resolved Date Syncope, unspecified syncope type 04/05/2022 11/24/2022 Assessment & Plan (04/26/2022 1:53 PM CDT): No concerns since d/c. She reports some lightheadedness with turning/twisting. She has been without falls since having been hospitalized. She has been w/o falls since hospitalization. Some report of shoes and being large in size. Other chest pain 03/21/2022 11/24/2022 FORMAN (dyspnea on exertion) 03/21/2022 Assessment & Plan (04/26/2022 1:50 PM CDT): Referral to pulmonology. Echo is WNL. She has with minimal exertion. Cannot attempt to use home exercises-intolerant. Lumbar radiculitis 09/21/2021 Abnormal EKG 04/08/2021 11/24/2022 Tremor 08/07/2020 11/24/2022 Assessment & Plan (04/28/2021 6:28 AM CDT): Stable. Continue to monitor. Assessment & Plan (08/07/2020 10:25 AM [employer] 8 TEACHER): Increase gabapentin to 1 tab po daily, and 2 tabs po hs. See if improvement, avoid BB-bradycardia w/ use. Hx of hypothyroidism-also possible cause. Consider topamax. Pruritus 08/07/2020 04/28/2021 Abnormal US (ultrasound) of abdomen 03/30/2020 08/07/2020 Benign neoplasm of rectum and anal canal 03/30/2020 08/07/2020 Overview (03/30/2020): Added automatically from request for surgery [id number] Abdominal pain 03/30/2020 08/07/2020 Overview (03/30/2020): Added automatically from request for surgery [id number] Bronchitis, simple, chronic 10/08/2019 11/24/2022 Assessment & Plan (04/26/2022 1:51 PM CDT): NOLBERTO is used less than I should . May use 1-2 x monthly. She has symbicort at home. Unknown if working or not. Not consistent with use. Swishing and spits. Nebulizer will help. Assessment & Plan (04/28/2021 6:28 AM CDT): Stable on Symbicort and p.r.n. albuterol. Continue to monitor. Assessment & Plan (08/07/2020 9:14 AM [employer] 8 TEACHER): With increased sedentary activity-improved. No concerns unless she is out and about. Fatigues with activity. Assessment & Plan (10/08/2019 7:03 PM CDT): Not using symbicort consistently. Wheezing has been improving with use of albuterol. Counseled to utilize, but as warranted steroids or antibx to be called out. Pt just recently completed round of both. Olecranon bursitis, right elbow 04/26/2019 08/07/2020 Breast lump on right side at 6 o'clock position 04/24/2019 08/07/2020 Assessment & Plan (04/24/2019 11:04 AM CDT): New. Ultrasound. Mammogram. No discharge noted. Constipation 01/02/2019 11/24/2022 Assessment & Plan (04/28/2021 6:29 AM CDT): Stable. Continue to monitor. Assessment & Plan (08/09/2020 7:56 PM [employer] 8 TEACHER): Improved. Feels that it is better since she has monitored. Assessment & Plan (01/16/2020 2:31 PM CDT): Follow-up with /Renee/Raissa for evaluation. Most likely 2/2 to inactivity and dietary change. Assessment & Plan (01/02/2019 8:53 AM CDT): Ongoing complains of nausea and noted constipation since 09/2018. Take 1 tbsp of metamucil this is a fiber supplement. Take 1 tbsp of Miralax twice daily in the am and pm with full glass of water. Increase activity. Recommended colonoscopy with change in bowel habits. Change in bowel habits 01/02/201908/07 Assessment & Plan (01/02/2019 8:54 AM CDT): Depending on results from last colonoscopy we will recommend scheduling a sooner colonoscopy. Rectal bleeding 01/02/2019 08/07/2020 Assessment & Plan (01/02/2019 8:56 AM CDT): Colonoscopy will be scheduled to determine the cause of the lower gastrointestinal bleeding. The differential diagnosis includes but is not limited to diverticulosis, microscopic colitis, colonic polyps, hemorrhoids, infectious colitis, rectal ulcer, ulcerative colitis, colonic neoplasms. Epigastric pain 12/23/2018 04/28/2021 Assessment & Plan (01/02/2019 8:45 AM CDT): Complains of Epigastric abdominal pain. Stop taking NSAIDs - such as Advil, meloxicam please read labels. Continue taking Prilosec 40 mg daily on empty stomach. Non-intractable vomiting with nausea 12/23/2018 04/28/2021 Assessment & Plan (01/02/2019 8:47 AM CDT): Ongoing nausea and occasional vomiting. We will schedule an Upper Endoscopy (EGD). Upper Endoscopy procedure risks, benefits and alternatives have been discussed with the patient. The differential diagnosis includes but is not limited to duodenal ulcer, gastric ulcer, gastritis, esophageal ulcerations, stomach polyps, neoplasms. Pain of both hip joints 05/16/201804/10 Assessment & Plan (10/14/2018 7:39 PM CDT): PT ordered. APAP. Myalgia 05/16/2018 11/24/2022 Assessment & Plan (10/31/2020 4:19 PM CDT): Chronic. Suspect 2/2 to arthritis and muscular deconditioning. Has exercises at home to do from PT (Declined referral). Con't gabapentin and work in increased frequency. Assessment & Plan (04/24/2019 11:01 AM CDT): Chronic. Counseled needs more physical activity. Look into local resources. Depression 08/07/2020 Assessment & Plan (04/24/2019 11:00 AM CDT): Improved since moving to [place]. Has more social and family support. Housing is better. Assessment & Plan (12/26/2018 8:55 PM CDT): Psychological condition is improving with treatment. Continue current treatment regimen. Psychological condition will be reassessed at the next regular appointment. Assessment & Plan (10/14/2018 7:38 PM CDT): Psychological condition is newly identified. Declined referral or meds at this OV. Physical activity. Psychological condition will be reassessed at the next regular appointment. Immunizations Immunization Administration Dates Next Due Influenza, Quad, Adjuvantate d, Intramuscular 03/27/2020 Influenza, Quadrivalent, Hig h Dose, Preservative Free, Intrr 04/17/2023,03/16/2022 Influenza, Trivalent, Adjuva nted, Intramuscular 04/09/2018 Influenza, Trivalent, High D ose, Split, Preservative Free, Intramuscular 04/15/2024,04/11/2019 Influenza, Trivalent, Preser vative Free, Intramuscular 03/27/2020 Influenza, Unspecified 04/19/2022,2021,04/08/2021,03/27,04/11/2019,04/09/2018,05/02/2017 ,04/09/2015,07/10/2014,05/12/2014,07/2012 Moderna SARS-CoV-2 Monovalen t Vaccination (12+ YRS) 05/11/2021,09/30/2020,09/02/2020 Techoz Sars-Cov-2 Bivalent V accination (12+ YRS) 05/01/2022 Pneumococcal Conjugate PCV 13 09/15/2016 Pneumococcal Conjugate, Unspecified 04/13/2017 Pneumococcal Polysaccharide PPV23 03/14/2015,07/2008 Pneumococcal, Unspecified 04/25/2017 Td, Unspecified 08/30/2014 Td, adsorbed 08/31/2014 Tdap 06/03/2022 ZOSTER Recombinant 08/23/2021,05/11/2021 Social History Tobacco Use Types Packs/Day Years Used Date Smoking Tobacco: Former Cigarettes Q uit: 1990 Smokeless Tobacco: Never Tobacco Cessation:Counseling Given: Not Answered Alcohol Use Standard Drinks/Week Comments Yes 0 (1 standard drink = 0.6 oz pur e alcohol) rarely AUDIT-C Answer Date Recorded Q1: How often do you have a drink containing alc ohol? Never 09/05/2023 Average Number of Drinks Not on file 024 Frequency of Binge Drinking Not on file 08/11 PHQ-2 Answer Date Recorded PHQ-2 Total Score (If total score is 3 or more points, staff should administer the PHQ-9) 0 07/01/2024 Personal Safety Answer Date Recorded Have you ever been in or are you currently in a harmful physical or emotional relationship or is someone making you feel afraid or unsafe? Denies 09/05/2023 Comments No Sex and Gender Information Value Date Recorded Sex Assigned at Not on file Legal Sex Female 2:54 PM CDT Gender Identity Female 03/20/2021 12:53 AM CDT Sexual Orientation Straight 04/25/2019 12 :34 AM CDT Occupation Industry Job Start Date Job End Date retired Not on file Not on file Not on file Last Filed Vital Signs Vital Sign Reading Time Taken Comments Blood Pressure 142/60 08/26/2024 4:29 PM [employer] TEACH[employer] Pulse 86 08/26/2024 4:29 PM [employer] 8 TEACHER Temperature 36.5 C (97.7 F) 08/26/2024 4:29 PM [employer] 8 TEACHER Respiratory Rate 24 08/26/2024 4:29 PM [employer] 8 TEACHER Oxygen Saturation 98% 08/26/2024 4:29 PM [employer] 8 TEACHER Inhaled Oxygen Concentration - - Weight 116.1 kg (256 lb) 08/26/2024 4:29 PM [employer] 8 TEACHER Height 162.6 cm (5' 4 ) 08/02/2024 1:21 PM [employer] 8 TEACHER Body Mass Index 43.94 08/02/2024 1:21 PM [employer] 8 TEACHER Plan of Treatment Not on file Goals Goal Patient Goal Type Associated Problems Recent Progress Patient-Stated? Author CCM Chronic Pain Care Plan Chronic Care Management Fatemeh Coburn, RN Note: Problem: Chronic Pain Goals: 1. Minimize further functional decline 2. Maximize quality of life 3. Control pain Strategies: - Activity/exercise program recommendation - Conservative stepwise pain medicine strategy with multi-disciplinary approach - Recommend healthy lifestyle strategies and compensatory methods as needed Reduce the likelihood of falling Lifestyle No Fatemeh Noble, RN Note: Below are four things you can do to prevent falls: Begin an exercise program to improve your leg strength & balance Ask your doctor or pharmacist to review your medicines Get annual eye check-ups & update your eyeglasses Make your home safer by: Removing clutter & tripping hazards Putting railings on all stairs & adding grab bars in the bathroom Having good lighting, especially on stairs Contact your local community or [facility] for information on exercise, fall prevention programs, or options for improving home safety. Procedures Procedure Name Priority Date/Time Associated Diagnosis Comments SCREENING MAMMOGRAM BILATERAL W LIAM Schedule Routine, Read Routine (OP Routine) 08/20/2024 2:35 PM [employer] TEACHER Screening mammogram, encounter for TSH+FREE T4 Routine 07/11/2024 12:40 PM [employer] 8 TEACHER HEPATITIS B CORE ANTIBODY, TOTAL Routine 07/11/2024 12:40 PM [employer] 8 TEACHER HEPATITIS B SURFACE ANTIGEN Routine 07/11/2024 12:40 PM [employer] 8 TEACHER HEPATITIS B SURFACE ANTIBODY (IMMUNE STATUS) Routine 07/11/2024 12:40 PM [employer] 8 TEACHER EGFR Routine 04/23/2024 3:09 PM CDT Essential hypertension HEMOGLOBIN A1C Routine 04/23/2024 3:09 PM CDT Prediabetes LIPID PANEL Routine 04/23/2024 3:09 PM CDT Dyslipidemia ALBUMIN CREATININE RATIO, URINE Routine 04/23/2024 3:09 PM CDT Prediabetes DEXA AXIAL SKELETON BONE DENSITY 1 OR MORE SITES Schedule Routine, Read Routine (OP Routine) 07/11/2023 4:18 PM [employer] 8 TEACHER Asymptomatic menopausal state DIABETES EYE EXAM Routine 05/14/2017 from Last 3 Months or Most Recently Relevant to Health Maintenance Results * (ABNORMAL) Screening Mammogram Bilateral W Liam (08/20/2024 2:35 PM [employer] TEACHER) Anatomical Region Laterality Modality Breast Bilateral Mammography 08/21/2024 12:5 3 PM [employer] 8 TEACHER Impressions 08/21/2024 12:53 PM [employer] 8 TEACHER There is increased skin and trabecular thickening over the RIGHT breast. FINAL ASSESSMENT: BI-RADS Category 0: Incomplete - Need Additional Imaging Evaluation. RECOMMENDATION: Findings in the right breast require additional evaluation. Diagnostic mammogram and possible ultrasound images of the right breast are recommended at this time. Electronically signed by: Tran Tejeda M.D. Narrative 08/21/2024 12:53 PM [employer] 8 TEACHER EXAMINATION: BILATERAL SCREENING MAMMOGRAM COMPARISON: Multiple prior mammograms dating back to 05/04/2015, most recent from 07/11/2023. TECHNIQUE: Full-field 2D and digital breast tomosynthesis (DBT) images were obtained. CAD was utilized. BREAST PARENCHYMAL COMPOSITION: There are scattered areas of fibroglandular density. FINDINGS: There is increased skin and trabecular thickening over the RIGHT breast. Calcifications in the RIGHT breast are not substantially changed as compared to multiple prior mammograms. There is no suspicious mass, calcification, or distortion in the LEFT breast. us Self Screening Mammogram IMG MAMMO PROCEDURES Fi nal Result * TSH+Free T4 (07/11/2024 12:40 PM [employer] 8 TEACHER) TSH 2.340 0.450 - 4.500 uIU/mL [facility] - 01 T4,Free(Direct) 1.73 0.82 - 1.77 ng/dL [facility] - 01 07/11/2024 12:4 0 PM [employer] 8 TEACHER 07/11/2024 Narrative [facility] - 07/12/2024 7:36 AM HOME TE[employer] 8 TEACHER Performed at: [address] [place] [id number] Buyer Tobacco Head: Faraz Rojas PhD, Phone: [phone] Specimen Comment: A courtesy copy of this report has been sent to [phone] Brigitte Foley MD LAB BLOOD ORDERABLES Final R esult Performing Organization Address City/[facility]/ZIP Co de Phone Number [facility] - * Hepatitis B core antibody, total (07/11/2024 12:40 PM [employer] TE[employer] 8 TEACHER) Hep B core IgG/IgM Negative Negative [facility] - 07/11/2024 12:4 0 PM [employer] 8 TEACHER 07/11/2024 Narrative [facility] - 07/12/2024 7:36 AM [employer] TE[employer] 7 [employer] 8 TEACHER Performed at: [address] [place] [address] [id number] Buyer Tobacco Head: Faraz Rojas PhD, Phone: [phone] Brigitte Foley MD LAB MICROBIOLOGY - GENERAL O RDERABLES Final Result Performing Organization Address City/[facility] Co de Phone Number [facility] * Hepatitis B surface antibody (immune status) (07/11/2024 12:40 PM [employer] TEACH[employer] 8 TEACHER) HBsAb (immune status) Non Reactive [facility] - 01 Comment: Non Reactive: Not immune to HBV infection. Equivocal: Unable to determine if anti-HBs is present at levels consistent with immunity. Reactive: Anti-HBs concentration detected at greater than 10 mIU/mL. Individual is considered to be immune to infection with HBV. 07/11/2024 12:4 0 PM [employer] 8 TEACHER 07/11/2024 Narrative [facility] - 07/12/2024 7:36 AM [employer] TE[employer] 8 TEACHER Performed at: [facility] [id number] [employer]: Faraz Rojas PhD, Phone: [phone] Brigitte Foley MD LAB MICROBIOLOGY - GENERAL O RDERABLES Final Result Performing Organization Address City/[facility]/ZIP Co de Phone Number [facility] - * Hepatitis B Surface Antigen (07/11/2024 12:40 PM HOME TE[employer] TE[employer]) [facility] HepBsAg Negative Negative [facility] - 01 07/11/2024 12:4 0 PM [employer] 8 TEACHER 07/11/2024 Narrative [facility] - 07/12/2024 7:36 AM [employer] TE[employer] 8 TEACHER Performed at: [address] [place] [address] [id number] Buy[employer]: Faraz Rojas PhD, Phone: [phone] Brigitte Foley MD LAB MICROBIOLOGY - GENERAL O RDERABLES Final Result Performing Organization Address City/[facility]/ZIP Co de Phone Number [facility] - * (ABNORMAL) eGFR (04/23/2024 3:09 PM CDT) [facility] eGFR 33(L) >=60 mL/min/1. 73 m2 Comment: Interpretive Data Reference Interval Normal >/= 90 mL/min/1.73m2 Mildly decreased* 60 - 89 mL/min/1.73m2 Mildly to moderately decreased 45 - 59 mL/min/1.73m2 Moderately to severely decreased 30 - 44 mL/min/1.73m2 Severely decreased 15 - 29 mL/min/1.73m2 Kidney Failure < 15 mL/min/1.73m2 *Relative to young adult level Estimated glomerular filtration rate is determined by the 2020 CKD-EPI equation recommended by the National Kidney Foundation (A Unifying Approach to GFR Estimation: Recommendations of the NKF-ASK Task Force on Reassessing the Inclusion of Race in Diagnosing Kidney Disease, JASN 2020). The CKD-EPI equation should not be used for patients with unstable renal function and has not been validated in children and those over 70. Current interpretive data was last reviewed 2021. Blood 04/23/2024 3:09 PM CDT 04/24/2024 10:24 AM CDT Brigitte Foley MD LAB BLOOD ORDERABLES Final [facility] Performing Organization Address [facility] de Phone Number [facility] [id number] [facility] [place] [address] * Albumin Creatinine Ratio, Urine (04/23/2024 3:09 PM CDT) Albumin Ur <12.0 mg/L Comment: Interpretive Data No reference range established. Current interpretive data was last revised 2018. Creatinine Ur 109.1 mg/dL [facility] Comment: Interpretive Data No reference range established. Current interpretive data was last revised 2018. Albumin Creatinine Ratio, Ur <11 1 - 29 mg/g [facility] Urine 04/23/2024 3:09 PM CDT 04/24/2024 10:11 AM CDT Result [facility] Brigitte Foley MD LAB URINE ORDERABLES Final R [facility] Performing Organization Address [facility] de Phone Number [facility] [id number] [facility] [place] [address] * Hemoglobin A1c (04/23/2024 3:09 PM CDT) Hgb A1C 5.6 4.0 - 5.6 % Estimated Average Glucose 114 mg/dL [facility] Comment: The ADA recommends reporting an estimated Average Glucose (eAG) with all Hemoglobin A1c results using the equation derived from a study of 507 normal and diabetic adults. Minority populations were underrepresented and children were not included. (Diabetes Care 31:7950-3255, 2008). The eAG is not equivalent to a fasting glucose. Blood 04/23/2024 3:09 PM CDT 04/24/2024 10:11 AM CDT us Brigitte Foley MD LAB [place] [address] [facility] [place] [address] * Lipid panel (04/23/2024 3:09 PM CDT) Cholesterol 153 30 - 199 mg/dL Comment: Interpretive Data Ages < or = 19 years Acceptable: <170 mg/dL Borderline high: 170-199 mg/dL High: >or= 200 mg/dL Ages > or = 20 years Desirable: <200 mg/dL Borderline high: 200-239 mg/dL High: >or= 240 mg/dL Literature References: 1. Expert Panel on Integrated Guidelines for Cardiovascular Health and Risk Reduction in Children and Adolescents. Pediatrics 2011;128:S213 2. NCEP Expert Panel. Circulation 2004;110:227 Current Interpretive Data was last revised on 2018. Triglycerides 73 <=149 mg/dL [facility] Comment: Interpretive Data Ages < or = 9 years Acceptable: <75 mg/dL Borderline high: 75-99 mg/dL High: >or= 100 mg/dL Ages 10 to 20 years Acceptable: <90 mg/dL Borderline high: 90-129 mg/dL High: >or= 130 mg/dL Ages > or = 20 years Desirable: <150 mg/dL Borderline high: 150-199 mg/dL High: 200-499 mg/dL Very high: >or= 499 mg/dL Literature References: 1. Expert Panel on Integrated Guidelines for Cardiovascular Health and Risk Reduction in Children and Adolescents. Pediatrics 2011;128:S213 2. NCEP Expert Panel. Circulation 2004;110:227 Current Interpretive Data was last revised on 2018. HDL 63 >=40 mg/dL [facility] Comment: Interpretive Data Ages < or = 19 years Acceptable: >45 mg/dL Borderline low: 40-45 mg/dL Low: <40 mg/dL Ages > or = 20 years Desirable: >or= 60 mg/dL Low: <40 mg/dL Literature References: 1. Expert Panel on Integrated Guidelines for Cardiovascular Health and Risk Reduction in Children and Adolescents. Pediatrics 2011;128:S213 2. NCEP Expert Panel. Circulation 2004;110:227 Current Interpretive Data was last revised on 2018. LDL, calculated 76 <=129 mg/dL [facility] Comment: Interpretive Data Ages < or = 19 years Acceptable: <110 mg/dL Borderline high: 110-129 mg/dL High: >or= 130 mg/dL Ages > or = 20 years Optimal: <100 mg/dL Near optimal: 100-129 mg/dL Borderline high: 130-159 mg/dL High: >160 mg/dL Calculated using the Gary LDL-C estimating equation. This equation was implemented on 2024. Prior to this date LDL-C was estimated using the Friedewald equation. Literature References: 1. Expert Panel on Integrated Guidelines for Cardiovascular Health and Risk Reduction in Children and Adolescents. Pediatrics 2011;128:S213 2. NCEP Expert Panel. Circulation 2004;110:227 3. Gary Delgado et al. MCKENNA Cardiol. 2019November 07;5(5):540-548. doi: [email or web address] Current Interpretive Data was last revised on 2024. Non-HDL Cholesterol 90 mg/dL EV CASILLAS Comment: Interpretive Data Ages < or = 19 years Acceptable: <120 mg/dL Borderline high: 120-144 mg/dL High: >145 mg/dL Ages > or = 20 years When triglycerides are >200 mg/dL, Non-HDL cholesterol is a secondary target of therapy with treatment goals that are 30 mg/dL greater than the LDL cholesterol target. Literature References: 1. Expert Panel on Integrated Guidelines for Cardiovascular Health and Risk Reduction in Children and Adolescents. Pediatrics 2011;128:S213 2. NCEP Expert Panel. Circulation 2004;110:227 Current Interpretive Data was last revised on 2018. Chol/HDL ratio 2 EV CASILLAS Blood 04/23/2024 3:09 PM CDT 04/24/2024 10:11 AM CDT us Brigitte Foley MD LAB [place] [id number] [address] [place] [address] * Dexa Axial Skeleton Bone Density 1 or 2 Site (07/11/2023 4:18 PM HOME TEACHING GRADES 7 AND 8 TEACHER) Anatomical Region Laterality Modality Body N/A Other 07/11/2023 4:24 PM [employer] TEACHING GRADES 7 AND 8 TEACHER Impressions 07/11/2023 4:24 PM HOME TEACHING GRADES 7 AND 8 TEACHER Osteoporosis. Consider follow-up bone densitometry evaluation in 1 to 2 years. Electronically signed by: Gómez Goetz M.D. Narrative 07/11/2023 4:24 PM HOME TEACHING GRADES 7 AND 8 TEACHER EXAMINATION: DEXA AXIAL SKELETON BONE DENSITY 1 OR MORE SITES DATE: 07/11/2023 3:30 PM HISTORY: 83 [id number] postmenopausal woman. Screening COMPARISON: 04/21/2021 FINDINGS: The bone densitometry of the L1-L4 region, the right femoral neck and the total right hip was calculated using dual-energy x-ray absorptiometry. Bone mineral density (BMD) of the lumbar spine (L1-4): T-score 0.2, previously 0.5 Bone mineral density (BMD) of the right femoral neck: T-score -2.5, previously not available Bone mineral density (BMD) of the total right hip: T-score -0.9, previously not available Procedure Note Gómez Goetz MD - 07/11/2023 EXAMINATION: DEXA AXIAL SKELETON BONE DENSITY 1 OR MORE SITES DATE: 07/11/2023 3:30 PM HISTORY: 83 [id number] postmenopausal woman. Screening COMPARISON: 04/21/2021 FINDINGS: The bone densitometry of the L1-L4 region, the right femoral neck and the total right hip was calculated using dual-energy x-ray absorptiometry. Bone mineral density (BMD) of the lumbar spine (L1-4): T-score 0.2, previously 0.5 Bone mineral density (BMD) of the right femoral neck: T-score -2.5, previously not available Bone mineral density (BMD) of the total right hip: T-score -0.9, previously not available IMPRESSION: Osteoporosis. Consider follow-up bone densitometry evaluation in 1 to 2 years. Electronically signed by: Gómez Goetz M.D. Brigitte Foley MD IMG DXA PROCEDURES Final Res ult * [facility] DIABETES EYE EXAM (05/14/2017) [facility] Diabetic Eye Exam Normal us Historical Provider MD HEALTH MAINTENANCE Final Result from Last 3 Months or Most Recently Relevant to Health Maintenance Insurance MEDICARE IDPA [facility] MEDICARE O [facility] MEDICARE HMO Advance Directives For more information, please contact: [phone] * Full Code (Latest Code Status on File) Date Activated Date Inactivated Comments 04/05/2022 6:50 PM 04/07/2022 2:19 AM * Full Code Date Activated Date Inactivated Comments 04/05/2022 5:06 PM 04/05/2022 6:50 PM * Full Code Date Activated Date Inactivated Comments 09/07/2018 5:27 PM 09/14/2018 5:06 PM Healthcare Agents on File Name Relationship Healthcare Agent Relationshi p Communication Miguel Mcbride Health Care Agent [id number] (Home) Alden Mcbride Health Care Agent Care Teams 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
--- OUTSIDE RECORDS SUMMARY | 2024-08-26 18:50 | XMS_ITS | Clinical Summary ---
Author Organization [facility] Facility Address [address] [address] Care Team Providers Care Motor Vehicle Escort Driver Name Role Phone Brigitte Foley MD Primary Care Provider [phone] Encounters Date Type Department Care Team Description 08/05/2024 Documentation Only [facility] [address] [address] Rylan Panchal DO from Last 3 Months Social History Tobacco Use Types Packs/Day Years Used Date Smoking Tobacco: Never Assessed Comments Unknown Sex and Gender Information Value Date Recorded Sex Assigned at Not on file Legal Sex Female 4:22 PM EST Gender Identity Not on file Sexual Orientation Not on file Plan of Treatment Upcoming Encounters Date Type Department Care Team (Late st Contact Info) Description 11/05/2024 1:45 PM CDT Office Visit [facility] [address] [place] [address] [address] [place] [phone] [place] [address] [place] [phone] Health Maintenance Due Date Last Done Comments Pneumococcal Vaccine: 65+ Years Completed 04/25/2017, 04/25/2017, 09/15/2016, Additional history exists Influenza Vaccine Completed 04/15/2024, , 04/19/2022, Additional history exists Hepatitis B Vaccine Aged Out No longe r eligible based on patient's age to complete this topic Insurance [facility] HMO ([id number]) Care Teams Motor Vehicle Escort Driver Relationship Specialty Start Date End Date Brigitte Foley MD [id number] [place] [address] PCP - General Internal Medicine 08/05/24
--- OUTSIDE RECORDS SUMMARY | 2024-08-26 18:50 | XMS_ITS | Referral Summary ---
Author Organization [facility] Address [address] [place] [address] Care Team Providers Care Seismic Interpreter Name Role Phone Haley Lerma MD Unavailable [phone] Brigitte Foley MD Primary Care Provider [phone] Source Comments [facility],non-[facility] Affiliates and Associated Physician Practices is amultiple site organization consisting of ambulatory clinics and hospital sitesin [place], [place], [place] and [place]. This disclosure is being madepursuant to the Care Everywhere program and may not contain all information available regarding this patient. Last updated 18.[facility] Encounters Date Type Department Care Team Description 06/11/2024 2:15 PM PHYSICIAN/INTERNIST Office Visit [facility] Medical [facility] - Rheumatology [address] [place] [address] Haley Lerma MD Rheumatoid arthritis without rheumatoid factor, multiple sites (HCC) (Primary Dx); Polyarthralgia; Chronic radicular pain of lower back; High risk medications (not anticoagulants) long-term use; Immunosuppressed status (HCC); Fibromyalgia; Vitamin D deficiency; Osteopenia of multiple sites from Last 3 Months Allergies Active Allergy Reactions Criticality Noted Date Comments Codeine GI Discomfort 03/11/2018 Medications * Be aware that medications may not be up to date on this document. Alwaysverify current medications with the patient. Medication Sig Dispensed Refills Start Date End Date Status omeprazole (PRILOSEC) 20 MG capsule Take 2 (two) capsules by mouth daily before breakfast Active losartan (COZAAR) 50 MG tablet Take 1 (one) tablet by mouth 2 times daily Active levothyroxine (SYNTHROID) 125 MCG tablet Take 1 (one) tablet by mouth Mon, Mon, Mon Active fluticasone propionate (FLONASE) 50 MCG/ACT nasal spray Minto 1 (one) spray into the nose at bedtime Active levothyroxine (SYNTHROID) 137 MCG tablet 04/18/2019 Active furosemide (LASIX) 40 MG tablet Take 1 (one) tablet by mouth once daily 03/23/2020 Active vitamin D3 (CHOLECACIFEROL) 125 MCG (5000 UT) Take 1 (one) tablet by mouth once daily Active B Complex Vitamins (B COMPLEX PO) Take by mouth once daily Active magnesium 250 MG tablet Take 1 (one) tablet by mouth once daily Active ferrous sulfate 325 (65 FE) MG tablet Take 1 (one) tablet by mouth One every 3 days Active fenofibrate (LOFIBRA) 160 MG tablet 05/16/2021 Active apixaban (ELIQUIS) 5 MG tablet Take 1 (one) tablet by mouth 2 times daily 03/26/2021 Active amLODIPine (NORVASC) 5 MG tablet TAKE 1 TABLET(5 MG) BY MOUTH DAILY 04/20/2021 Active spironolactone (Aldactone) 25 MG tablet 08/27/2022 Active rosuvastatin (Crestor) 5 MG tablet 08/24/2022 Active DULoxetine (Cymbalta) 60 MG capsule Take 1 (one) capsule by mouth 2 times daily 08/15/2022 Active torsemide (Demadex) 20 MG tablet Take 1 (one) tablet by mouth 2 times daily 02/12/2024 Active SOFTCLIX LANCETS MISC 11/23/2023 Active Accu-Chek Guide test strip USE TO CHECK BLOOD SUGAR 1-2 TIMES DAILY 11/23/2023 Active ezetimibe (Zetia) 10 MG tablet Take 1 (one) tablet by mouth once daily 01/09/2024 Active gabapentin (Neurontin) 300 MG capsule Take 2 (two) capsules by mouth 3 times daily 560 capsule 06/11/2024 Active upadacitinib ER (Rinvoq) 15 MG tabletIndications:R heumatoid arthritis without rheumatoid factor, multiple sites (HCC) Take 1 (one) tablet by mouth once daily 120 tablet 06/11/2024 Active Active Problems Problem Noted Date Diagnosed Date 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 (FLUAD QUADRIVALENT; 65Y+) (AIIV4) 04/08/2021,03/27/2020 INFLUENZA VACCINE, ADJUVANTE D, TRIV. (FLUAD TRIVALENT; 65Y+) (AIIV3) 04/09/2018 INFLUENZA VACCINE, HIGH-DOSE , QUADR. (FLUZONE HIGH-DOSE QUADRIVALENT; 65Y+), 0.7 ML (HD-IIV4) 04/11/2019 PNEUMOCOCCAL PCV VACCINE 04/13/2017 PNEUMOCOCCAL PPSV23 03/14/2015,07/10/2008 PNEUMOCOCCAL PPV VACCINE 04/25/2017 Pneumococcal Pcv13 Conj 09/15/2016 TD VACCINE 08/30/2014 TDAP (7yrs+) 06/03/2022 Td (Adult), 2 Lf Tetanus Tox oid, Adsorbed, Pf 08/31/2014 Zoster Hzv Vacc Recombinant Inj Im 08/23/2021, Social History Tobacco Use Types Packs/Day Years Used Date Smoking Tobacco: Former Cigarettes Q uit: 06/11/1992 Smokeless Tobacco: Never Tobacco Cessation:Counseling Given: Not Answered Alcohol Use Standard Drinks/Week Comments Yes 0 (1 standard drink = 0.6 oz pur e alcohol) occas PHQ-2 Answer Date Recorded Patient Health Questionnaire-2 Score 0 06/11/2024 Sex and Gender Information Value Date Recorded Sex Assigned at Not on file Gender Identity Female 08/19/2020 8:35 AM PHYSICIAN/INTERNIST Sexual Orientation Not on file Last Filed Vital Signs Vital Sign Reading Time Taken Comments Blood Pressure 128/80 06/11/2024 2:27 PM PHYSICIAN/INTERNIST Pulse 91 06/11/2024 2:27 PM PHYSICIAN/INTERNIST Temperature 36.3 C (97.4 F) 10/06/2022 1:38 PM CDT Respiratory Rate 18 03/11/2018 6:41 PM CDT Oxygen Saturation 97% 06/11/2024 2:27 PM PHYSICIAN/INTERNIST Inhaled Oxygen Concentration - - Weight 110.7 kg (244 lb) 06/11/2024 2:27 PM PHYSICIAN/INTERNIST Height 162.6 cm (5' 4 ) 06/11/2024 2:27 PM PHYSICIAN/INTERNIST Body Mass Index 41.88 06/11/2024 2:27 PM PHYSICIAN/INTERNIST Plan of Treatment Upcoming Encounters Date Type Department Care Team (Late st Contact Info) Description 10/17/2024 2:30 PM CDT Office Visit [facility] - Rheumatology [address] [facility] [facility] [address] [place] [address] Gilma Ann, STRESS ANALYST-STRING TOP SEALER [address] [facility] [address] [place] [address] Procedures Procedure Name Priority Date/Time Associated Diagnosis Comments VITAMIN B12 FOLATE PANEL Routine 06/18/2024 2:47 PM PHYSICIAN/INTERNIST Rheumatoid arthritis without rheumatoid factor, multiple sites (HCC) Polyarthralgia Chronic radicular pain of lower back High risk medications (not anticoagulants) long-term use Immunosuppressed status (HCC) Fibromyalgia Vitamin D deficiency Osteopenia of multiple sites ERYTHROCYTE SEDIMENTATION RATE Routine 06/18/2024 2:47 PM PHYSICIAN/INTERNIST Rheumatoid arthritis without rheumatoid factor, multiple sites (HCC) Polyarthralgia Chronic radicular pain of lower back High risk medications (not anticoagulants) long-term use Immunosuppressed status (HCC) Fibromyalgia Vitamin D deficiency Osteopenia of multiple sites C-REACTIVE PROTEIN Routine 06/18/2024 2: 47 PM PHYSICIAN/INTERNIST Rheumatoid arthritis without rheumatoid factor, multiple sites (HCC) Polyarthralgia Chronic radicular pain of lower back High risk medications (not anticoagulants) long-term use Immunosuppressed status (HCC) Fibromyalgia Vitamin D deficiency Osteopenia of multiple sites COMPREHENSIVE METABOLIC PANEL Routine 06/18/2024 2:47 PM PHYSICIAN/INTERNIST Rheumatoid arthritis without rheumatoid factor, multiple sites (HCC) Polyarthralgia Chronic radicular pain of lower back High risk medications (not anticoagulants) long-term use Immunosuppressed status (HCC) Fibromyalgia Vitamin D deficiency Osteopenia of multiple sites CBC W AUTO DIFFERENTIAL Routine 06/18/2024 2:47 PM PHYSICIAN/INTERNIST Rheumatoid arthritis without rheumatoid factor, multiple sites (HCC) Polyarthralgia Chronic radicular pain of lower back High risk medications (not anticoagulants) long-term use Immunosuppressed status (HCC) Fibromyalgia Vitamin D deficiency Osteopenia of multiple sites from Last 3 Months Results * C-REACTIVE PROTEIN (06/18/2024 2:47 PM PHYSICIAN/INTERNIST) C-Reactive Protein 5 0 - 10 mg/L [facility] INSURANCE BILL Blood BLOOD SPECIMEN / Unknown 06/18/2024 2:47 PM PHYSICIAN/INTERNIST 06/18/2024 Narrative [facility] INSURANCE BILL - 06/19/2024 1:08 PM PHYSICIAN/INTERNIST Performed at: [address] [place] [id number] Employee Relations Advisor: Faraz Rojas PhD, Phone: [phone] Haley Lerma MD LAB - CHEMISTRY ELISE HOLLY [facility] INSURANCE BILL [address] [place] [address] * ERYTHROCYTE SEDIMENTATION RATE (06/18/2024 2:47 PM PHYSICIAN/INTERNIST) Erythrocyte Sedimentation Rate Westergren 11 0 - 40 mm/hr [facility] INSURANCE BILL Blood BLOOD SPECIMEN / Unknown 06/18/2024 2:47 PM PHYSICIAN/INTERNIST 06/18/2024 Narrative [facility] INSURANCE BILL - 06/19/2024 11:09 AM PHYSICIAN/INTERNIST Performed at: [address] [place], [place] [address] [place] [id number] Employee Relations Advisor: Faraz Rojas PhD, Phone: [phone] Haley Lerma MD LAB - HEMATOLOGY ORD ERABLES [facility] INSURANCE BILL [address] [place] [address] * (ABNORMAL) CBC WITH DIFFERENTIAL (06/18/2024 2:47 PM PHYSICIAN/INTERNIST) WBC 7.3 3.4 - 10.8 x10E3/uL [facility] INSURANCE BILL RBC 3.57(L) 3.77 - 5.28 x10E6/uL [facility] INSURANCE BILL Hemoglobin 10.8(L) 11.1 - 15.9 g/dL [facility] INSURANCE BILL Hematocrit 35.0 34.0 - 46.6 % [facility] INSURANCE BILL MCV 98(H) 79 - 97 fL [facility] INSURANCE BILL MCH 30.3 26.6 - 33.0 pg [facility] INSURANCE BILL MCHC 30.9(L) 31.5 - 35.7 g/dL [facility] INSURANCE BILL RDW 12.0 11.7 - 15.4 % [facility] INSURANCE BILL Platelet Count 284 150 - 450 x10E3/uL [facility] INSURANCE BILL Granulocytes % 68 Not Estab. % [facility] INSURANCE BILL Lymphocytes % 19 Not Estab. % [facility] INSURANCE BILL Monocytes % 9 Not Estab. % [facility] INSURANCE BILL Eosinophils % 3 Not Estab. % [facility] INSURANCE BILL Basophils % 1 Not Estab. % [facility] INSURANCE BILL Granulocytes Absolute 5.0 1.4 - 7.0 x10E3/uL [facility] INSURANCE BILL Lymphocytes Absolute 1.4 0.7 - 3.1 x10E3/uL [facility] INSURANCE BILL Monocytes Absolute 0.7 0.1 - 0.9 x10E3/uL [facility] INSURANCE BILL Eosinophils Absolute 0.2 0.0 - 0.4 x10E3/uL [facility] INSURANCE BILL Basophils Absolute 0.1 0.0 - 0.2 x10E3/uL [facility] INSURANCE BILL Immature Granulocytes 0 Not Estab. % [facility] INSURANCE BILL Immature Granulocytes Absolute 0.0 0.0 - 0.1 x10E3/uL [facility] INSURANCE BILL Blood BLOOD SPECIMEN / Unknown 06/18/2024 2:47 PM PHYSICIAN/INTERNIST 06/18/2024 Narrative [facility] INSURANCE BILL - 06/19/2024 7:10 AM PHYSICIAN/INTERNIST Performed at: 01 - [facility] [id number] [place], [place] [id number] Employee Relations Advisor: Faraz Rojas PhD, Phone: [phone] Haley Lerma MD LAB - HEMATOLOGY ORD ERABLES [facility] INSURANCE BILL [address] [place] [address] * (ABNORMAL) COMPREHENSIVE METABOLIC PANEL (06/18/2024 2:47 PM PHYSICIAN/INTERNIST) Pathologist [facility] Glucose 92 70 - 99 mg/dL [facility] INSURANCE BILL BUN 24 8 - 27 mg/dL [facility] INSURANCE BILL Creatinine 2.04(H) 0.57 - 1.00 mg/dL [facility] INSURANCE BILL eGFR by CKD-EPI 24(L) >59 mL/min/1.7 3 [facility] INSURANCE BILL BUN/Creatinine Ratio 12 12 - 28 [facility] INSURANCE BILL Sodium 140 134 - 144 mmol/L [facility] INSURANCE BILL Potassium 4.8 3.5 - 5.2 mmol/L [facility] INSURANCE BILL Chloride 101 96 - 106 mmol/L [facility] INSURANCE BILL CO2 26 20 - 29 mmol/L [facility] INSURANCE BILL Calcium 9.7 8.7 - 10.3 mg/dL [facility] INSURANCE BILL Protein Total 6.3 6.0 - 8.5 g/dL [facility] INSURANCE BILL Albumin 4.0 3.7 - 4.7 g/dL [facility] INSURANCE BILL Globulin Total 2.3 1.5 - 4.5 g/dL [facility] INSURANCE BILL Bilirubin Total 0.5 0.0 - 1.2 mg/dL [facility] INSURANCE BILL Alkaline Phosphatase 42(L) 44 - 121 IU/L [facility] INSURANCE BILL AST 28 0 - 40 IU/L [facility] INSURANCE BILL ALT 12 0 - 32 IU/L [facility] INSURANCE BILL Blood BLOOD SPECIMEN / Unknown 06/18/2024 2:47 PM PHYSICIAN/INTERNIST 06/18/2024 Narrative [facility] INSURANCE BILL - 06/19/2024 7:10 AM PHYSICIAN/INTERNIST Performed at: 01 - [facility] [address] [place], [place] [id number] Employee Relations Advisor: Faraz Rojas PhD, Phone: [phone] Haley Lerma MD LAB - CHEMISTRY ELISE HOLLY [facility] INSURANCE BILL [address] [place] [address] * VITAMIN B12 FOLATE PANEL (06/18/2024 2:47 PM PHYSICIAN/INTERNIST) [facility] Vitamin B12 466 232 - 1,245 pg/mL [facility] INSURANCE BILL Folate 18.0 >3.0 ng/mL [facility] INSURANCE BILL Comment: A serum folate concentration of less than 3.1 ng/mL is considered to represent clinical deficiency. Blood BLOOD SPECIMEN / Unknown 06/18/2024 2:47 PM PHYSICIAN/INTERNIST 06/18/2024 Narrative [facility] INSURANCE BILL - 06/19/2024 10:11 AM PHYSICIAN/INTERNIST Performed at: 01 - [facility] [address] [place], [place] [id number] Employee Relations Advisor: Faraz Rojas PhD, Phone: [phone] Haley Lerma MD LAB - CHEMISTRY ELISE HOLLY Performing Organization Address City/[facility]/ZIP Co de Phone Number [facility] INSURANCE BILL [address] [place] [address] from Last 3 Months Care Teams Seismic Interpreter Relationship Specialty Start Date End Date Brigitte Foley MD [address] [facility] [address] [address] PCP - General Internal Medicine 06/08/23 [place] [address] [phone] Rheumatology 06/11/19
--- OUTSIDE RECORDS SUMMARY | 2024-08-26 18:50 | XMS_ITS | Patient Health Summary ---
Author Organization [facility] Address [address] 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 This disclosure is being madepursuant to the Care Everywhere program and may not contain all information available regarding this patient. Last updated 18.[facility] Allergies * Codeine(GI Discomfort) Medications * Be aware that medications may not be up to date on this document. Alwaysverify current medications with the patient. * omeprazole (PRILOSEC) 20 MG capsule Take 2 (two) capsules by mouth daily before breakfast * losartan (COZAAR) 50 MG tablet Take 1 (one) tablet by mouth 2 times daily * levothyroxine (SYNTHROID) 125 MCG tablet Take 1 (one) tablet by mouth Mon, Wed, Mon * fluticasone propionate (FLONASE) 50 MCG/ACT nasal spray Colon 1 (one) spray into the nose at bedtime * levothyroxine (SYNTHROID) 137 MCG tablet(Started 04/18/2019) * furosemide (LASIX) 40 MG tablet(Started 03/23/2020) Take 1 (one) tablet by mouth once daily * vitamin D3 (CHOLECACIFEROL) 125 MCG (5000 UT) Take 1 (one) tablet by mouth once daily * B Complex Vitamins (B COMPLEX PO) Take by mouth once daily * magnesium 250 MG tablet Take 1 (one) tablet by mouth once daily * ferrous sulfate 325 (65 FE) MG tablet Take 1 (one) tablet by mouth One every 3 days * fenofibrate (LOFIBRA) 160 MG tablet(Started 05/16/2021) * apixaban (ELIQUIS) 5 MG tablet(Started 03/26/2021) Take 1 (one) tablet by mouth 2 times daily * amLODIPine (NORVASC) 5 MG tablet(Started 04/20/2021) TAKE 1 TABLET(5 MG) BY MOUTH DAILY * spironolactone (Aldactone) 25 MG tablet(Started 08/27/2022) * rosuvastatin (Crestor) 5 MG tablet(Started 08/24/2022) * DULoxetine (Cymbalta) 60 MG capsule(Started 08/15/2022) Take 1 (one) capsule by mouth 2 times daily * torsemide (Demadex) 20 MG tablet(Started 02/12/2024) Take 1 (one) tablet by mouth 2 times daily * SOFTCLIX LANCETS MISC(Started 11/23/2023) * Accu-Chek Guide test strip(Started 11/23/2023) USE TO CHECK BLOOD SUGAR 1-2 TIMES DAILY * ezetimibe (Zetia) 10 MG tablet(Started 01/09/2024) Take 1 (one) tablet by mouth once daily * gabapentin (Neurontin) 300 MG capsule(Started 06/11/2024) Take 2 (two) capsules by mouth 3 times daily * upadacitinib ER (Rinvoq) 15 MG tablet(Started 06/11/2024) Take 1 (one) tablet by mouth once daily Active Problems Problem Noted Date Diagnosed Date 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 (FLUAD QUADRIVALENT; 65Y+) (AIIV4)(Given 04/08/2021, 03/27/2020) * INFLUENZA VACCINE, ADJUVANTED, TRIV. (FLUAD TRIVALENT; 65Y+) (AIIV3)(Given 04/09/2018) * INFLUENZA VACCINE, HIGH-DOSE, QUADR. 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 Sexual Orientation Not on file Last Filed Vital Signs Vital Sign Reading Time Taken Comments Blood Pressure 128/80 06/11/2024 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 Pulse 91 06/11/2024 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 Temperature 36.3 C (97.4 F) 10/06/2022 1:38 PM CDT Respiratory Rate 18 03/11/2018 6:41 PM CDT Oxygen Saturation 97% 06/11/2024 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 Inhaled Oxygen Concentration - - Weight 110.7 kg (244 lb) 06/11/2024 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 Height 162.6 cm (5' 4 ) 06/11/2024 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 Body Mass Index 41.88 06/11/2024 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 Procedures * VITAMIN B12 FOLATE PANEL(Performed 06/18/2024) Performed for Rheumatoid arthritis without rheumatoid factor, multiple sites (HCC), Polyarthralgia,Chronic radicular pain of lower back, High risk medications (not anticoagulants) long-term use, Immunosuppressed status (HCC), Fibromyalgia, Vitamin D deficiency, Osteopenia of multiple sites * ERYTHROCYTE SEDIMENTATION RATE(Performed 06/18/2024) Performed for Rheumatoid arthritis without rheumatoid factor, multiple sites (HCC), Polyarthralgia,Chronic radicular pain of lower back, High risk medications (not anticoagulants) long-term use, Immunosuppressed status (HCC), Fibromyalgia, Vitamin D deficiency, Osteopenia of multiple sites * C-REACTIVE PROTEIN(Performed 06/18/2024) Performed for Rheumatoid arthritis without rheumatoid factor, multiple sites (HCC), Polyarthralgia,Chronic radicular pain of lower back, High risk medications (not anticoagulants) long-term use, Immunosuppressed status (HCC), Fibromyalgia, Vitamin D deficiency, Osteopenia of multiple sites * COMPREHENSIVE METABOLIC PANEL(Performed 06/18/2024) Performed for Rheumatoid arthritis without rheumatoid factor, multiple sites (HCC), Polyarthralgia,Chronic radicular pain of lower back, High risk medications (not anticoagulants) long-term use, Immunosuppressed status (HCC), Fibromyalgia, Vitamin D deficiency, Osteopenia of multiple sites * CBC W AUTO DIFFERENTIAL(Performed 06/18/2024) Performed for Rheumatoid arthritis without rheumatoid factor, multiple sites (HCC), Polyarthralgia,Chronic radicular pain of lower back, High risk medications (not anticoagulants) long-term use, Immunosuppressed status (HCC), Fibromyalgia, Vitamin D deficiency, Osteopenia of multiple sites * VITAMIN D 25-HYDROXY(Performed 01/31/2024) Performed for Rheumatoid arthritis without rheumatoid factor, multiple sites (HCC), Vitamin D deficiency, Polyarthralgia, Fibromyalgia, High risk medications (not anticoagulants) long-term use, Immunosuppressed status (HCC), Chronic radicular pain of lower back, Osteopenia of multiple sites * ERYTHROCYTE SEDIMENTATION RATE(Performed 01/31/2024) Performed for Rheumatoid arthritis without rheumatoid factor, multiple sites (HCC), Vitamin D deficiency, Polyarthralgia, Fibromyalgia, High risk medications (not anticoagulants) long-term use, Immunosuppressed status (HCC), Chronic radicular pain of lower back, Osteopenia of multiple sites * C-REACTIVE PROTEIN(Performed 01/31/2024) Performed for Rheumatoid arthritis without rheumatoid factor, multiple sites (HCC), Vitamin D deficiency, Polyarthralgia, Fibromyalgia, High risk medications (not anticoagulants) long-term use, Immunosuppressed status (HCC), Chronic radicular pain of lower back, Osteopenia of multiple sites * COMPREHENSIVE METABOLIC PANEL(Performed 01/31/2024) Performed for Rheumatoid arthritis without rheumatoid factor, multiple sites (HCC), Vitamin D deficiency, Polyarthralgia, Fibromyalgia, High risk medications (not anticoagulants) long-term use, Immunosuppressed status (HCC), Chronic radicular pain of lower back, Osteopenia of multiple sites * CBC W AUTO DIFFERENTIAL(Performed 01/31/2024) Performed for Rheumatoid arthritis without rheumatoid factor, multiple sites (HCC), Vitamin D deficiency, Polyarthralgia, Fibromyalgia, High risk medications (not anticoagulants) long-term use, Immunosuppressed status (HCC), Chronic radicular pain of lower back, Osteopenia of multiple sites * INTERPRETATION REFLEXED(Performed 09/28/2023) Performed for Rheumatoid arthritis without rheumatoid factor, multiple sites (HCC), Vitamin D deficiency, Polyarthralgia, Fibromyalgia, High risk medications (not anticoagulants) long-term use, Immunosuppressed status (HCC), Chronic radicular pain of lower back, Rheumatoid arthritis of multiple sites without rheumatoid factor (HCC), Osteopenia of multiple sites, Postmenopausal osteoporosis, Lassitude * HEPATITIS SCREEN ACUTE ([facility])(Performed 09/28/2023) Performed for Rheumatoid arthritis without rheumatoid factor, multiple sites (HCC), Vitamin D deficiency, Polyarthralgia, Fibromyalgia, High risk medications (not anticoagulants) long-term use, Immunosuppressed status (HCC), Chronic radicular pain of lower back, Rheumatoid arthritis of multiple sites without rheumatoid factor (HCC), Osteopenia of multiple sites, Postmenopausal osteoporosis, [place]assitude * QUANTIFERON TB-GOLD(Performed 09/28/2023) Performed for Rheumatoid arthritis without rheumatoid factor, multiple sites (HCC), Vitamin D deficiency, Polyarthralgia, Fibromyalgia, High risk medications (not anticoagulants) long-term use, Immunosuppressed status (HCC), Chronic radicular pain of lower back, Rheumatoid arthritis of multiple sites without rheumatoid factor (HCC), Osteopenia of multiple sites, Postmenopausal osteoporosis, [place]ass[place] * VITAMIN D 25-HYDROXY(Performed 09/28/2023) Performed for Rheumatoid arthritis without rheumatoid factor, multiple sites (HCC), Vitamin D deficiency, Polyarthralgia, Fibromyalgia, High risk medications (not anticoagulants) long-term use, Immunosuppressed status (HCC), Chronic radicular pain of lower back, Rheumatoid arthritis of multiple sites without rheumatoid factor (HCC), Osteopenia of multiple sites, Postmenopausal osteoporosis, [place] * ERYTHROCYTE SEDIMENTATION RATE(Performed 09/28/2023) Performed for Rheumatoid arthritis without rheumatoid factor, multiple sites (HCC), Vitamin D deficiency, Polyarthralgia, Fibromyalgia, High risk medications (not anticoagulants) long-term use, Immunosuppressed status (HCC), Chronic radicular pain of lower back, Rheumatoid arthritis of multiple sites without rheumatoid factor (HCC), Osteopenia of multiple sites, Postmenopausal osteoporosis, [place]assitude * C-REACTIVE PROTEIN(Performed 09/28/2023) Performed for Rheumatoid arthritis without rheumatoid factor, multiple sites (HCC), Vitamin D deficiency, Polyarthralgia, Fibromyalgia, High risk medications (not anticoagulants) long-term use, Immunosuppressed status (HCC), Chronic radicular pain of lower back, Rheumatoid arthritis of multiple sites without rheumatoid factor (HCC), Osteopenia of multiple sites, Postmenopausal osteoporosis, [place]assitude * COMPREHENSIVE METABOLIC PANEL(Performed 09/28/2023) Performed for Rheumatoid arthritis without rheumatoid factor, multiple sites (HCC), Vitamin D deficiency, Polyarthralgia, Fibromyalgia, High risk medications (not anticoagulants) long-term use, Immunosuppressed status (HCC), Chronic radicular pain of lower back, Rheumatoid arthritis of multiple sites without rheumatoid factor (HCC), Osteopenia of multiple sites, Postmenopausal osteoporosis, [place]assitude * CBC W AUTO DIFFERENTIAL(Performed 09/28/2023) Performed for Rheumatoid arthritis without rheumatoid factor, multiple sites (HCC), Vitamin D deficiency, Polyarthralgia, Fibromyalgia, High risk medications (not anticoagulants) long-term use, Immunosuppressed status (HCC), Chronic radicular pain of lower back, Rheumatoid arthritis of multiple sites without rheumatoid factor (HCC), Osteopenia of multiple sites, Postmenopausal osteoporosis, [place]assitude * VITAMIN D 25-HYDROXY(Performed 06/06/2023) Performed for Rheumatoid arthritis without rheumatoid factor, multiple sites (HCC), Vitamin D deficiency, Polyarthralgia, Fibromyalgia, High risk medications (not anticoagulants) long-term use, Immunosuppressed status (HCC), Chronic radicular pain of lower back, Rheumatoid arthritis of multiple sites without rheumatoid factor (HCC), Osteopenia of multiple sites * ERYTHROCYTE SEDIMENTATION RATE(Performed 06/06/2023) Performed for Rheumatoid arthritis without rheumatoid factor, multiple sites (HCC), Vitamin D deficiency, Polyarthralgia, Fibromyalgia, High risk medications (not anticoagulants) long-term use, Immunosuppressed status (HCC), Chronic radicular pain of lower back, Rheumatoid arthritis of multiple sites without rheumatoid factor (HCC), Osteopenia of multiple sites * C-REACTIVE PROTEIN(Performed 06/06/2023) Performed for Rheumatoid arthritis without rheumatoid factor, multiple sites (HCC), Vitamin D deficiency, Polyarthralgia, Fibromyalgia, High risk medications (not anticoagulants) long-term use, Immunosuppressed status (HCC), Chronic radicular pain of lower back, Rheumatoid arthritis of multiple sites without rheumatoid factor (HCC), Osteopenia of multiple sites * COMPREHENSIVE METABOLIC PANEL(Performed 06/06/2023) Performed for Rheumatoid arthritis without rheumatoid factor, multiple sites (HCC), Vitamin D deficiency, Polyarthralgia, Fibromyalgia, High risk medications (not anticoagulants) long-term use, Immunosuppressed status (HCC), Chronic radicular pain of lower back, Rheumatoid arthritis of multiple sites without rheumatoid factor (HCC), Osteopenia of multiple sites * CBC W AUTO DIFFERENTIAL(Performed 06/06/2023) Performed for Rheumatoid arthritis without rheumatoid factor, multiple sites (HCC), Vitamin D deficiency, Polyarthralgia, Fibromyalgia, High risk medications (not anticoagulants) long-term use, Immunosuppressed status (HCC), Chronic radicular pain of lower back, Rheumatoid arthritis of multiple sites without rheumatoid factor (HCC), Osteopenia of multiple sites * VITAMIN D 25-HYDROXY(Performed 01/30/2023) Performed for Rheumatoid arthritis without rheumatoid factor, multiple sites (HCC), Vitamin D deficiency, Polyarthralgia, Fibromyalgia, High risk medications (not anticoagulants) long-term use, Immunosuppressed status (HCC) * ERYTHROCYTE SEDIMENTATION RATE(Performed 01/30/2023) Performed for Rheumatoid arthritis without rheumatoid factor, multiple sites (HCC), Vitamin D deficiency, Polyarthralgia, Fibromyalgia, High risk medications (not anticoagulants) long-term use, Immunosuppressed status (HCC) * C-REACTIVE PROTEIN(Performed 01/30/2023) Performed for Rheumatoid arthritis without rheumatoid factor, multiple sites (HCC), Vitamin D deficiency, Polyarthralgia, Fibromyalgia, High risk medications (not anticoagulants) long-term use, Immunosuppressed status (HCC) * COMPREHENSIVE METABOLIC PANEL(Performed 01/30/2023) Performed for Rheumatoid arthritis without rheumatoid factor, multiple sites (HCC), Vitamin D deficiency, Polyarthralgia, Fibromyalgia, High risk medications (not anticoagulants) long-term use, Immunosuppressed status (HCC) * CBC W AUTO DIFFERENTIAL(Performed 01/30/2023) Performed for Rheumatoid arthritis without rheumatoid factor, multiple sites (HCC), Vitamin D deficiency, Polyarthralgia, Fibromyalgia, High risk medications (not anticoagulants) long-term use, Immunosuppressed status (HCC) * INTERPRETATION REFLEXED(Performed 10/18/2022) Performed for Rheumatoid arthritis without rheumatoid factor, multiple sites (HCC), Vitamin D deficiency, Polyarthralgia, Fibromyalgia, High risk medications (not anticoagulants) long-term use, Immunosuppressed status (HCC), Chronic radicular pain of lower back, Postmenopausal osteoporosis, Rheumatoid arthritis of multiple sites without rheumatoid factor (HCC), Lassitude * HEPATITIS SCREEN ACUTE ([facility])(Performed 10/18/2022) Performed for Rheumatoid arthritis without rheumatoid factor, multiple sites (HCC), Vitamin D deficiency, Polyarthralgia, Fibromyalgia, High risk medications (not anticoagulants) long-term use, Immunosuppressed status (HCC), Chronic radicular pain of lower back, Postmenopausal osteoporosis, Rheumatoid arthritis of multiple sites without rheumatoid factor (HCC), Lassitude * QUANTIFERON TB-GOLD(Performed 10/18/2022) Performed for Rheumatoid arthritis without rheumatoid factor, multiple sites (HCC), Vitamin D deficiency, Polyarthralgia, Fibromyalgia, High risk medications (not anticoagulants) long-term use, Immunosuppressed status (HCC), Chronic radicular pain of lower back, Postmenopausal osteoporosis, Rheumatoid arthritis of multiple sites without rheumatoid factor (HCC), Lassitude * C-REACTIVE PROTEIN(Performed 10/18/2022) Performed for Rheumatoid arthritis without rheumatoid factor, multiple sites (HCC), Vitamin D deficiency, Polyarthralgia, Fibromyalgia, High risk medications (not anticoagulants) long-term use, Immunosuppressed status (HCC), Chronic radicular pain of lower back, Postmenopausal osteoporosis, Rheumatoid arthritis of multiple sites without rheumatoid factor (HCC), [place] * VITAMIN D 25-HYDROXY(Performed 10/18/2022) Performed for Rheumatoid arthritis without rheumatoid factor, multiple sites (HCC), Vitamin D deficiency, Polyarthralgia, Fibromyalgia, High risk medications (not anticoagulants) long-term use, Immunosuppressed status (HCC), Chronic radicular pain of lower back, Postmenopausal osteoporosis, Rheumatoid arthritis of multiple sites without rheumatoid factor (HCC), [place] * ERYTHROCYTE SEDIMENTATION RATE(Performed 10/18/2022) Performed for Rheumatoid arthritis without rheumatoid factor, multiple sites (HCC), Vitamin D deficiency, Polyarthralgia, Fibromyalgia, High risk medications (not anticoagulants) long-term use, Immunosuppressed status (HCC), Chronic radicular pain of lower back, Postmenopausal osteoporosis, Rheumatoid arthritis of multiple sites without rheumatoid factor (HCC), [place]assitude * COMPREHENSIVE METABOLIC PANEL(Performed 10/18/2022) Performed for Rheumatoid arthritis without rheumatoid factor, multiple sites (HCC), Vitamin D deficiency, Polyarthralgia, Fibromyalgia, High risk medications (not anticoagulants) long-term use, Immunosuppressed status (HCC), Chronic radicular pain of lower back, Postmenopausal osteoporosis, Rheumatoid arthritis of multiple sites without rheumatoid factor (HCC), Lassitude * CBC W AUTO DIFFERENTIAL(Performed 10/18/2022) Performed for Rheumatoid arthritis without rheumatoid factor, multiple sites (HCC), Vitamin D deficiency, Polyarthralgia, Fibromyalgia, High risk medications (not anticoagulants) long-term use, Immunosuppressed status (HCC), Chronic radicular pain of lower back, Postmenopausal osteoporosis, Rheumatoid arthritis of multiple sites without rheumatoid factor (HCC), [place]assitude * VITAMIN D 25-HYDROXY(Performed 09/21/2022) Performed for Rheumatoid arthritis without rheumatoid factor, multiple sites (HCC), Vitamin D deficiency, Polyarthralgia, Fibromyalgia, High risk medications (not anticoagulants) long-term use, Immunosuppressed status (HCC), Chronic radicular pain of lower back, Postmenopausal osteoporosis, Rheumatoid arthritis of multiple sites without rheumatoid factor (HCC) * ERYTHROCYTE SEDIMENTATION RATE(Performed 09/21/2022) Performed for Rheumatoid arthritis without rheumatoid factor, multiple sites (HCC), Vitamin D deficiency, Polyarthralgia, Fibromyalgia, High risk medications (not anticoagulants) long-term use, Immunosuppressed status (HCC), Chronic radicular pain of lower back, Postmenopausal osteoporosis, Rheumatoid arthritis of multiple sites without rheumatoid factor (HCC) * C-REACTIVE PROTEIN(Performed 09/21/2022) Performed for Rheumatoid arthritis without rheumatoid factor, multiple sites (HCC), Vitamin D deficiency, Polyarthralgia, Fibromyalgia, High risk medications (not anticoagulants) long-term use, Immunosuppressed status (HCC), Chronic radicular pain of lower back, Postmenopausal osteoporosis, Rheumatoid arthritis of multiple sites without rheumatoid factor (HCC) * COMPREHENSIVE METABOLIC PANEL(Performed 09/21/2022) Performed for Rheumatoid arthritis without rheumatoid factor, multiple sites (HCC), Vitamin D deficiency, Polyarthralgia, Fibromyalgia, High risk medications (not anticoagulants) long-term use, Immunosuppressed status (HCC), Chronic radicular pain of lower back, Postmenopausal osteoporosis, Rheumatoid arthritis of multiple sites without rheumatoid factor (HCC) * CBC W AUTO DIFFERENTIAL(Performed 09/21/2022) Performed for Rheumatoid arthritis without rheumatoid factor, multiple sites (HCC), Vitamin D deficiency, Polyarthralgia, Fibromyalgia, High risk medications (not anticoagulants) long-term use, Immunosuppressed status (HCC), Chronic radicular pain of lower back, Postmenopausal osteoporosis, Rheumatoid arthritis of multiple sites without rheumatoid factor (HCC) * QUANTIFERON TB-GOLD(Performed 03/04/2022) Performed for Polyarthralgia, Rheumatoid arthritis without rheumatoid factor, multiple sites (HCC),Vitamin D deficiency * VITAMIN D 25-HYDROXY(Performed 03/04/2022) Performed for Polyarthralgia, Rheumatoid arthritis without rheumatoid factor, multiple sites (HCC),Vitamin D deficiency * ERYTHROCYTE SEDIMENTATION RATE(Performed 03/04/2022) Performed for Polyarthralgia, Rheumatoid arthritis without rheumatoid factor, multiple sites (HCC),Vitamin D deficiency * C-REACTIVE PROTEIN(Performed 03/04/2022) Performed for Polyarthralgia, Rheumatoid arthritis without rheumatoid factor, multiple sites (HCC),Vitamin D deficiency * COMPREHENSIVE METABOLIC PANEL(Performed 03/04/2022) Performed for Polyarthralgia, Rheumatoid arthritis without rheumatoid factor, multiple sites (HCC),Vitamin D deficiency * CBC W AUTO DIFFERENTIAL(Performed 03/04/2022) Performed for Polyarthralgia, Rheumatoid arthritis without rheumatoid factor, multiple sites (HCC),Vitamin D deficiency * INTERPRETATION REFLEXED(Performed 03/04/2022) Performed for Polyarthralgia, Rheumatoid arthritis without rheumatoid factor, multiple sites (HCC),Vitamin D deficiency, Lassitude * HEPATITIS SCREEN ACUTE ([facility])(Performed 03/04/2022) Performed for Polyarthralgia, Rheumatoid arthritis without rheumatoid factor, multiple sites (HCC),Vitamin D deficiency, Lassitude * COMPREHENSIVE METABOLIC PANEL(Performed 12/14/2021) Performed for Rheumatoid arthritis without rheumatoid factor, multiple sites (HCC) * VITAMIN D 25-HYDROXY(Performed 11/03/2021) Performed for Rheumatoid arthritis without rheumatoid factor, multiple sites (HCC), Polyarthralgia,High risk medications (not anticoagulants) long-term use, Immunosuppressed status (HCC), Vitamin D deficiency, Fibromyalgia, Chronic radicular pain of lower back, Postmenopausal osteoporosis * ERYTHROCYTE SEDIMENTATION RATE(Performed 11/03/2021) Performed for Rheumatoid arthritis without rheumatoid factor, multiple sites (HCC), Polyarthralgia,High risk medications (not anticoagulants) long-term use, Immunosuppressed status (HCC), Vitamin D deficiency, Fibromyalgia, Chronic radicular pain of lower back, Postmenopausal osteoporosis * C-REACTIVE PROTEIN(Performed 11/03/2021) Performed for Rheumatoid arthritis without rheumatoid factor, multiple sites (HCC), Polyarthralgia,High risk medications (not anticoagulants) long-term use, Immunosuppressed status (HCC), Vitamin D deficiency, Fibromyalgia, Chronic radicular pain of lower back, Postmenopausal osteoporosis * COMPREHENSIVE METABOLIC PANEL(Performed 11/03/2021) Performed for Rheumatoid arthritis without rheumatoid factor, multiple sites (HCC), Polyarthralgia,High risk medications (not anticoagulants) long-term use, Immunosuppressed status (HCC), Vitamin D deficiency, Fibromyalgia, Chronic radicular pain of lower back, Postmenopausal osteoporosis * CBC W AUTO DIFFERENTIAL(Performed 11/03/2021) Performed for Rheumatoid arthritis without rheumatoid factor, multiple sites (HCC), Polyarthralgia,High risk medications (not anticoagulants) long-term use, Immunosuppressed status (HCC), Vitamin D deficiency, Fibromyalgia, Chronic radicular pain of lower back, Postmenopausal osteoporosis * HEPATITIS SCREEN ACUTE(Performed 01/13/2021) Performed for Rheumatoid arthritis of multiple sites without rheumatoid factor (HCC), Polyarthralgia, High risk medications (not anticoagulants) long-term use, Immunosuppressed status (HCC), Vitamin D deficiency, Fibromyalgia, Chronic radicular pain of lower back, Postmenopausal osteoporosis, History of seronegative inflammatory arthritis, Lassitude * QUANTIFERON TB-GOLD(Performed 01/13/2021) Performed for Rheumatoid arthritis of multiple sites without rheumatoid factor (HCC), Polyarthralgia, High risk medications (not anticoagulants) long-term use, Immunosuppressed status (HCC), Vitamin D deficiency, Fibromyalgia, Chronic radicular pain of lower back, Postmenopausal osteoporosis, History of seronegative inflammatory arthritis * VITAMIN D 25-HYDROXY(Performed 01/13/2021) Performed for Rheumatoid arthritis of multiple sites without rheumatoid factor (HCC), Polyarthralgia, High risk medications (not anticoagulants) long-term use, Immunosuppressed status (HCC), Vitamin D deficiency, Fibromyalgia, Chronic radicular pain of lower back, Postmenopausal osteoporosis, History of seronegative inflammatory arthritis * ERYTHROCYTE SEDIMENTATION RATE(Performed 01/13/2021) Performed for Rheumatoid arthritis of multiple sites without rheumatoid factor (HCC), Polyarthralgia, High risk medications (not anticoagulants) long-term use, Immunosuppressed status (HCC), Vitamin D deficiency, Fibromyalgia, Chronic radicular pain of lower back, Postmenopausal osteoporosis, History of seronegative inflammatory arthritis * C-REACTIVE PROTEIN(Performed 01/13/2021) Performed for Rheumatoid arthritis of multiple sites without rheumatoid factor (HCC), Polyarthralgia, High risk medications (not anticoagulants) long-term use, Immunosuppressed status (HCC), Vitamin D deficiency, Fibromyalgia, Chronic radicular pain of lower back, Postmenopausal osteoporosis, History of seronegative inflammatory arthritis * COMPREHENSIVE METABOLIC PANEL(Performed 01/13/2021) Performed for Rheumatoid arthritis of multiple sites without rheumatoid factor (HCC), Polyarthralgia, High risk medications (not anticoagulants) long-term use, Immunosuppressed status (HCC), Vitamin D deficiency, Fibromyalgia, Chronic radicular pain of lower back, Postmenopausal osteoporosis, History of seronegative inflammatory arthritis * CBC W AUTO DIFFERENTIAL(Performed 01/13/2021) Performed for Rheumatoid arthritis of multiple sites without rheumatoid factor (HCC), Polyarthralgia, High risk medications (not anticoagulants) long-term use, Immunosuppressed status (HCC), Vitamin D deficiency, Fibromyalgia, Chronic radicular pain of lower back, Postmenopausal osteoporosis, History of seronegative inflammatory arthritis * ERYTHROCYTE SEDIMENTATION RATE(Performed 10/22/2020) Performed for Rheumatoid arthritis of multiple sites without rheumatoid factor (HCC), Polyarthralgia, High risk medications (not anticoagulants) long-term use, Immunosuppressed status (HCC), Fibromyalgia, Vitamin D deficiency, History of seronegative inflammatory arthritis, Chronic radicular pain of lower back * C-REACTIVE PROTEIN(Performed 10/22/2020) Performed for Rheumatoid arthritis of multiple sites without rheumatoid factor (HCC), Polyarthralgia, High risk medications (not anticoagulants) long-term use, Immunosuppressed status (HCC), Fibromyalgia, Vitamin D deficiency, History of seronegative inflammatory arthritis, Chronic radicular pain of lower back * VITAMIN D 25-HYDROXY(Performed 04/15/2020) Performed for Rheumatoid arthritis of multiple sites without rheumatoid factor (HCC), Polyarthralgia, High risk medications (not anticoagulants) long-term use, Immunosuppressed status (HCC), Fibromyalgia, Vitamin D deficiency, History of seronegative inflammatory arthritis * ERYTHROCYTE SEDIMENTATION RATE(Performed 04/15/2020) Performed for Rheumatoid arthritis of multiple sites without rheumatoid factor (HCC), Polyarthralgia, High risk medications (not anticoagulants) long-term use, Immunosuppressed status (HCC), Fibromyalgia, Vitamin D deficiency, History of seronegative inflammatory arthritis * C-REACTIVE PROTEIN(Performed 04/15/2020) Performed for Rheumatoid arthritis of multiple sites without rheumatoid factor (HCC), Polyarthralgia, High risk medications (not anticoagulants) long-term use, Immunosuppressed status (HCC), Fibromyalgia, Vitamin D deficiency, History of seronegative inflammatory arthritis * COMPREHENSIVE METABOLIC PANEL(Performed 04/15/2020) Performed for Rheumatoid arthritis of multiple sites without rheumatoid factor (HCC), Polyarthralgia, High risk medications (not anticoagulants) long-term use, Immunosuppressed status (HCC), Fibromyalgia, Vitamin D deficiency, History of seronegative inflammatory arthritis * CBC W AUTO DIFFERENTIAL(Performed 04/15/2020) Performed for Rheumatoid arthritis of multiple sites without rheumatoid factor (HCC), Polyarthralgia, High risk medications (not anticoagulants) long-term use, Immunosuppressed status (HCC), Fibromyalgia, Vitamin D deficiency, History of seronegative inflammatory arthritis * XR HAND BILAT 1VW(Performed 06/11/2019) Performed for Polyarthralgia, Fibromyalgia, Vitamin D deficiency, Lassitude * XR LUMBAR SPINE 2 OR 3VW(Performed 06/11/2019) Performed for Polyarthralgia, Fibromyalgia, Vitamin D deficiency, Lassitude * XR FOOT BILAT 3VW OR MORE(Performed 06/11/2019) Performed for Polyarthralgia, Fibromyalgia, Vitamin D deficiency, Lassitude * XR ANKLE BILAT 3VW OR MORE(Performed 06/11/2019) Performed for Polyarthralgia, Fibromyalgia, Vitamin D deficiency, Lassitude * XR PELVIS W BILAT HIP 2VW(Performed 06/11/2019) Performed for Polyarthralgia, Fibromyalgia, Vitamin D deficiency, Lassitude * XR SI JOINTS 3VW OR MORE(Performed 06/11/2019) Performed for Polyarthralgia, Fibromyalgia, Vitamin D deficiency, Lassitude * RADHA PANEL COMPREHENSIVE(Performed 06/11/2019) Performed for Polyarthralgia, Fibromyalgia * COMPLEMENT C3 C4 PANEL(Performed 06/11/2019) Performed for Polyarthralgia, Fibromyalgia * HEPATITIS SCREEN ACUTE(Performed 06/11/2019) Performed for Polyarthralgia, Fibromyalgia, Vitamin D deficiency, Lassitude * VITAMIN D 25-HYDROXY(Performed 06/11/2019) Performed for Polyarthralgia, Fibromyalgia, Vitamin D deficiency * RHEUMATOID ARTHRITIS PANEL(Performed 06/11/2019) Performed for Polyarthralgia, Fibromyalgia * ERYTHROCYTE SEDIMENTATION RATE(Performed 06/11/2019) Performed for Polyarthralgia, Fibromyalgia * C-REACTIVE PROTEIN(Performed 06/11/2019) Performed for Polyarthralgia, Fibromyalgia * COMPREHENSIVE METABOLIC PANEL(Performed 06/11/2019) Performed for Polyarthralgia, Fibromyalgia * CK BLOOD(Performed 06/11/2019) Performed for Polyarthralgia, Fibromyalgia * CBC W AUTO DIFFERENTIAL(Performed 06/11/2019) Performed for Polyarthralgia, Fibromyalgia * XR CHEST 2VW(Performed 03/11/2018) Performed for SOB (shortness of breath) * EKG 12-LEAD(Performed 03/11/2018) Performed for SOB (shortness of breath) * ISTAT CHEM8+ PANEL TJEAS(Performed 03/11/2018) * BMP W CA+ NOTIFICATION(Performed 03/11/2018) * CBC W AUTO DIFFERENTIAL(Performed 03/11/2018) * D-DIMER(Performed 03/11/2018) * NT-PRO BNP(Performed 03/11/2018) Results * C-REACTIVE PROTEIN (06/18/2024 2:47 PM 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) Only the most recent of13 resultswithin the time period is included. C-Reactive Protein 5 0 - 10 mg/L [facility] INSURANCE BILL Blood BLOOD SPECIMEN / Unknown 06/18/2024 2:47 PM 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 06/18/2024 Narrative [facility] INSURANCE BILL - 06/19/2024 1:08 PM 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 Performed at: [address] [place] [address] [id number] Senior Sustainability Consultant: Faraz Rojas PhD, Phone: [phone] Haley Lerma MD LAB - CHEMISTRY [facility] Performing Organization Address [facility] de Phone Number [facility] INSURANCE BILL [address] [place] [address] * ERYTHROCYTE SEDIMENTATION RATE (06/18/2024 2:47 PM 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) Only the most recent of13 resultswithin the time period is included. Erythrocyte Sedimentation Rate Westergren 11 0 - 40 mm/hr [facility] INSURANCE BILL Blood BLOOD SPECIMEN / Unknown 06/18/2024 2:47 PM 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 06/18/2024 Narrative [employer] INSURANCE BILL - 06/19/2024 11:09 AM 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 Performed at: [address] [place] [address] [id number] Senior Sustainability Consultant: Faraz Rojas PhD, Phone: [phone] Haley Lerma MD LAB - HEMATOLOGY ORD ERABLES [facility] INSURANCE BILL [address] [place] [address] * (ABNORMAL) CBC WITH DIFFERENTIAL (06/18/2024 2:47 PM 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) Only the most recent of13 resultswithin the time period is included. WBC 7.3 3.4 - 10.8 x10E3/uL [facility] [...] BLOOD SPECIMEN / Unknown 06/18/2024 2:47 PM 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 06/18/2024 Narrative [facility] INSURANCE BILL - 06/19/2024 7:10 AM 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 Performed at: 01 - [facility] [employer] [facility] [id number] Senior Sustainability Consultant: Faraz Rojas PhD, Phone: [phone] Haley Lerma MD LAB - HEMATOLOGY ORD ERABLES [facility] INSURANCE BILL [address] [place] [address] * (ABNORMAL) COMPREHENSIVE METABOLIC PANEL (06/18/2024 2:47 PM 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) Only the most recent of13 resultswithin the time period is included. Glucose 92 70 - 99 mg/dL [facility] [...] BLOOD SPECIMEN / Unknown 06/18/2024 2:47 PM 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 06/18/2024 Narrative [facility] INSURANCE BILL - 06/19/2024 7:10 AM 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 Performed at: 01 - [facility] [employer] [facility] [address] [id number] Senior Sustainability Consultant: Faraz Rojas PhD, Phone: [phone] Haley Lerma MD LAB - CHEMISTRY [place] [facility] Performing Organization Address [facility] de Phone Number [facility] INSURANCE BILL [address] [place] [address] * VITAMIN B12 FOLATE PANEL (06/18/2024 2:47 PM 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) Pathologist [facility] Vitamin B12 466 232 - 1,245 pg/mL [facility] INSURANCE BILL Folate 18.0 >3.0 ng/mL [facility] INSURANCE BILL Comment: A serum folate concentration of less than 3.1 ng/mL is considered to represent clinical deficiency. Blood BLOOD SPECIMEN / Unknown 06/18/2024 2:47 PM 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 06/18/2024 Narrative [facility] INSURANCE BILL - 06/19/2024 10:11 AM 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 Performed at: [address] [place] [address] [id number] Senior Sustainability Consultant: Faraz Rojas PhD, Phone: [phone] Haley Lerma MD LAB - CHEMISTRY [place] Performing Organization Address [facility] Phone Number [facility] [address] [place] [address] * VITAMIN D 25-HYDROXY (01/31/2024 2:44 PM CDT) Only the most recent of11 resultswithin the time period is included. Pathologist [facility] Vitamin D, 25 Hydroxy 51.1 30.0 - 100.0 ng/mL [facility] INSURANCE BILL Comment: Vitamin D deficiency has been defined by the [place] [employer] and an Endocrine Society practice guideline as a level of serum 25-OH vitamin D less than 20 ng/mL (1,2). The Endocrine Society went on to further define vitamin D insufficiency as a level between 21 and 29 ng/mL (2). 1. IOM ([place] [employer]). 2010. Dietary reference intakes for calcium and D. [place]: The National Academies Press. 2. Esperanza MF, Nikky MCCRARY, Marcus STILES, et al. Evaluation, treatment, and prevention of vitamin D deficiency: an Endocrine Society clinical practice guideline. JCEM. 2010; 96(5):1911-30. Blood BLOOD SPECIMEN / Unknown 01/31/2024 2:44 PM CDT 01/31/2024 Narrative Resulting Agency Comment [facility]: [facility] [employer] [facility] [phone] Haley Lerma MD LAB - CHEMISTRY [place] Performing Organization Address [facility] de Phone Number [facility] INSURANCE BILL [address] [place] [address] * HEPATITIS SCREEN ACUTE ([facility]) (09/28/2023 10:38 AM CDT) Only the most recent of3 resultswithin the time period is included. Hepatitis A Virus Antibody IgM Negative Negative [facility] INSURANCE BILL Hepatitis B Virus Surface Antigen Negative Negative [facility] INSURANCE BILL Hepatitis B Core Virus Antibody IgM Negative Negative [facility] INSURANCE BILL Hepatitis C Antibody Non Reactive Non Reactive [facility] INSURANCE BILL Blood BLOOD SPECIMEN / Unknown 09/28/2023 10:38 AM CDT 09/28/2023 Narrative Resulting Agency Comment Lab Testing performed at: [employer] [employer] [place] [address] [phone] Haley Lerma MD LAB - CHEMISTRY [place]ISE [facility] Performing Organization Address [facility] de Phone Number [facility] INSURANCE BILL [address] [place] [address] * INTERPRETATION REFLEXED (09/28/2023 10:38 AM CDT) Only the most recent of3 resultswithin the time period is included. Interpretation [facility] INSURANCE BILL Comment: Not infected with HCV unless early or acute infection is suspected (which may be delayed in an immunocompromised individual), or other evidence exists to indicate HCV infection. 09/28/2023 10:3 8 AM CDT 09/28/2023 Narrative Resulting Agency Comment Lab Testing performed at: [facility] [employer] [place] [address] [phone] Haley Lerma MD LAB - SEROLOGY ORDER ALEXANDRA [facility] INSURANCE BILL [address] [place] [address] * QUANTIFERON TB-GOLD (09/28/2023 10:37 AM CDT) Only the most recent of4 resultswithin the time period is included. QuantiFERON Incubation Incubation performed. [facility] INSURANCE BILL QuantiFERON Criteria [facility] INSURANCE BILL Comment: QuantiFERON-TB Gold Plus is a qualitative indirect test for M tuberculosis infection (including disease) and is intended for use in conjunction with risk assessment, radiography, and other medical and diagnostic evaluations. The QuantiFERON-TB Gold Plus result is determined by subtracting the Nil value from either TB antigen (Ag) value. The Mitogen tube serves as a control for the test. QuantiFERON TB1 Ag Value 0.17 IU/mL [facility] INSURANCE BILL QuantiFERON TB2 Ag Value 0.01 IU/mL [facility] INSURANCE BILL QuantiFERON Nil Value 0.01 IU/mL [facility] INSURANCE BILL QuantiFERON Mitogen Value >10.00 IU/mL [facility] INSURANCE BILL QuantiFERON-TB Gold Plus Negative Negative [facility] INSURANCE BILL Comment: No response to M tuberculosis antigens detected. Infection with M tuberculosis is unlikely, but high risk individuals should be considered for additional testing (ATS/IDSA/CDC Clinical Practice Guidelines, 2017). The reference range is an Antigen minus Nil result of <0.35 IU/mL. Chemiluminescence immunoassay methodology FASTING Blood BLOOD SPECIMEN / Unknown 09/28/2023 10:37 AM CDT 09/28/2023 Narrative Resulting Agency Comment [facility]: [facility] [address] [facility] [phone] Haley Lerma MD LAB - CHEMISTRY ORDE AVNI [facility] INSURANCE BILL [address] [place] [address] * HEPATITIS SCREEN ACUTE (01/13/2021 1:07 PM CDT) Only the most recent of2 resultswithin the time period is included. Hepatitis A Virus Antibody IgM Negative Negative [facility] INSURANCE BILL Hepatitis B Virus Surface Antigen Negative Negative [facility] INSURANCE BILL Hepatitis B Core Virus Antibody IgM Negative Negative [facility] INSURANCE BILL Hepatitis C Antibody <0.1 0.0 - 0.9 s/co ratio [facility] INSURANCE BILL Comment: Negative: < 0.8 Indeterminate: 0.8 - 0.9 Positive: > 0.9 . The CDC recommends that a positive HCV antibody result be followed up with a HCV Nucleic Acid Amplification test (610292). Blood BLOOD SPECIMEN / Unknown 01/13/2021 1:07 PM CDT 01/13/2021 Narrative Resulting Agency Comment [facility] performed [facility]: [facility] [address] [facility] [phone] Haley Lerma MD LAB - CHEMISTRY ELISE HO[place] [facility] INSURANCE BILL [address] [place] [address] * XR HAND BILAT 1VW (06/11/2019 11:35 AM 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) Anatomical Region Laterality Modality Wrist / Hand, Upper Extremity Ra diographic Imaging 06/11/2019 12:0 0 PM 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 Impressions 06/11/2019 12:02 PM 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 Mild degenerative changes. Reading Radiologist: Balwinder Clancy MD on 06/11/2019 at 12:02 PM Narrative 06/11/2019 12:02 PM 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 Single view bilateral hand. Wrist: Polyarthropathy. Fibromyalgia. Vitamin D deficiency FINDINGS: Left hand: There is some slight proximal subluxation of the first CMC joint. No periarticular erosion. Additional mild cartilage thinning at the second DIP joint. No periostitis. Right hand: No joint subluxation tuft erosion periostitis or marginal erosion. The amount of demineralization about the joints appears just generalized osteopenia. Mild degenerative changes at the first CMC joint. Procedure Note Balwinder Clancy MD - 06/11/2019 Single view bilateral hand. Wrist: Polyarthropathy. Fibromyalgia. Vitamin D deficiency FINDINGS: Left hand: There is some slight proximal subluxation of the first CMC joint. No periarticular erosion. Additional mild cartilage thinning at the second DIP joint. No periostitis. Right hand: No joint subluxation tuft erosion periostitis or marginal erosion. The amount of demineralization about the joints appears just generalized osteopenia. Mild degenerative changes at the first CMC joint. IMPRESSION Mild degenerative changes. Reading Radiologist: Balwinder Clancy MD on 06/11/2019 at 12:02 PM Haley Lerma MD DIAGNOSTIC IMAGING O RDERABLES * XR LUMBAR SPINE 2 OR 3VW (06/11/2019 11:35 AM 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) Anatomical Region Laterality Modality Spine Radiographic Monse ging 06/11/2019 11:5 8 AM 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 Impressions 06/11/2019 11:59 AM 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 Degenerative changes involve the caudal levels of the lumbar spine. There is no evidence of acute bony injury. Reading Radiologist: Za Graff MD on 06/11/2019 at 11:59 AM Narrative 06/11/2019 11:59 AM 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 LUMBAR SPINE INDICATION: Low back pain, polyarthralgia No comparison FINDINGS: AP, lateral view, and spot lateral view of the lumbosacral junction were obtained. Patient is diffusely osteopenic. Alignment of the lumbar spine is within normal limits. There is moderate disc space narrowing at L5-S1 with mild disc space narrowing at L4-5 and L2-3. No compression or other vertebral fracture is seen. Facet arthropathy is present from L3-4 through L5-S1 and appears most pronounced at L5-S1. Procedure Note Za Graff MD - 06/11/2019 LUMBAR SPINE INDICATION: Low back pain, polyarthralgia No comparison FINDINGS: AP, lateral view, and spot lateral view of the lumbosacral junction were obtained. Patient is diffusely osteopenic. Alignment of the lumbar spine is within normal limits. There is moderate disc space narrowing at L5-S1 with mild disc space narrowing at L4-5 and L2-3. No compression or other vertebral fracture is seen. Facet arthropathy is present from L3-4 through L5-S1 and appears most pronounced at L5-S1. IMPRESSION Degenerative changes involve the caudal levels of the lumbar spine. There is no evidence of acute bony injury. Reading Radiologist: Za Graff MD on 06/11/2019 at 11:59 AM Haley Lerma MD DIAGNOSTIC IMAGING O RDERABLES * XR FOOT BILAT 3VW OR MORE (06/11/2019 11:22 AM 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) Anatomical Region Laterality Modality Ankle / Foot, Lower Extremity Ra diographic Imaging 06/11/2019 12:5 3 PM 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 Narrative 06/11/2019 12:54 PM 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 EXAM: XR FOOT BILAT 3VW OR MORE*[id number] INDICATION: Bilateral foot pain COMPARISON: none available FINDINGS: There is no displaced fracture or dislocation. There is no osseous destruction. Significant hypertrophic or erosive changes are not identified. Soft tissue swelling is noted in the foot and ankle. Reading Radiologist: Harman Dumont MD on 06/11/2019 at 12:54 PM Procedure Note Harman Dumont MD - 06/11/2019 EXAM: XR FOOT BILAT 3VW OR MORE*[id number] INDICATION: Bilateral foot pain COMPARISON: none available FINDINGS: There is no displaced fracture or dislocation. There is no osseous destruction. Significant hypertrophic or erosive changes are not identified. Soft tissue swelling is noted in the foot and ankle. Reading Radiologist: Harman Dumont MD on 06/11/2019 at 12:54 PM Haley Lerma MD DIAGNOSTIC IMAGING O RDERABLES * XR ANKLE BILAT 3VW OR MORE (06/11/2019 11:19 AM 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) Anatomical Region Laterality Modality Ankle / Foot, Lower Extremity Ra diographic Imaging 06/11/2019 12:5 4 PM 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 Narrative 06/11/2019 12:58 PM 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 EXAM: XR ANKLE BILAT 3VW OR MORE*[id number] INDICATION: Bilateral ankle pain COMPARISON: none available FINDINGS: There is diffuse soft tissue swelling in bilateral ankles. There is no displaced fracture or dislocation in either ankle. There is no osseous destruction. There is joint space narrowing and hypertrophic spurring at the tibiotalar and talofibular joints bilaterally. Reading Radiologist: Harman Dumont MD on 06/11/2019 at 12:58 PM Procedure Note Harman Dumont MD - 06/11/2019 EXAM: XR ANKLE BILAT 3VW OR MORE*[id number] INDICATION: Bilateral ankle pain COMPARISON: none available FINDINGS: There is diffuse soft tissue swelling in bilateral ankles. There is no displaced fracture or dislocation in either ankle. There is no osseous destruction. There is joint space narrowing and hypertrophic spurring at the tibiotalar and talofibular joints bilaterally. Reading Radiologist: Harman Dumont MD on 06/11/2019 at 12:58 PM Haley Lerma MD DIAGNOSTIC IMAGING O RDERABLES * XR PELVIS W BILAT HIP 2VW (06/11/2019 11:17 AM 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) Anatomical Region Laterality Modality Pelvis, Lower Extremity Radiogra phic Imaging 06/11/2019 12:1 2 PM 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 Impressions 06/11/2019 12:15 PM 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 Mild left hip degenerative changes. Lower lumbar facet arthropathy. Reading Radiologist: Balwinder Clancy MD on 06/11/2019 at 12:15 PM Narrative 06/11/2019 12:15 PM 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 Pelvis AP Left hip 2 views Right hip 2 views Bilateral sacroiliac joints 3 views History: Bilateral hip pain Findings: AP pelvis: There is distention of the left S1 sacral ala. 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 No sacroiliac joint diastases. Left hip: Spur off of the inferior aspect the left femoral head. The femoral neck is intact. Minimal trochanteric enthesopathy with peripheral vascular disease. Right hip: The femoral neck and intertrochanteric region is normal. Spurring off the greater trochanter. Lower lumbar facet arthropathy. 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 No ankylosis across the SI joints. No healing sacral and spacing fracture line. Degenerative changes L5-S1. Procedure Note Balwinder Clancy MD - 06/11/2019 Pelvis AP Left hip 2 views Right hip 2 views Bilateral sacroiliac joints 3 views History: Bilateral hip pain Findings: AP pelvis: There is distention of the left S1 sacral ala. 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 No sacroiliac joint diastases. Left hip: Spur off of the inferior aspect the left femoral head. The femoral neck is intact. Minimal trochanteric enthesopathy with peripheral vascular disease. Right hip: The femoral neck and intertrochanteric region is normal. Spurring off the greater trochanter. Lower lumbar facet arthropathy. 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 No ankylosis across the SI joints. No healing sacral and spacing fracture line. Degenerative changes L5-S1. IMPRESSION Mild left hip degenerative changes. Lower lumbar facet arthropathy. Reading Radiologist: Balwinder Clancy MD on 06/11/2019 at 12:15 PM Haley Lerma MD DIAGNOSTIC IMAGING O RDERABLES * XR SI JOINTS 3VW OR MORE (06/11/2019 11:16 AM 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) Anatomical Region Laterality Modality Pelvis, Lower Extremity Radiogra phic Imaging 06/11/2019 12:1 2 PM 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 Impressions 06/11/2019 12:15 PM 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 Mild left hip degenerative changes. Lower lumbar facet arthropathy. Reading Radiologist: Balwinder Clancy MD on 06/11/2019 at 12:15 PM Narrative 06/11/2019 12:15 PM 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 Pelvis AP Left hip 2 views Right hip 2 views Bilateral sacroiliac joints 3 views History: Bilateral hip pain Findings: AP pelvis: There is distention of the left S1 sacral ala. 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 No sacroiliac joint diastases. Left hip: Spur off of the inferior aspect the left femoral head. The femoral neck is intact. Minimal trochanteric enthesopathy with peripheral vascular disease. Right hip: The femoral neck and intertrochanteric region is normal. Spurring off the greater trochanter. Lower lumbar facet arthropathy. 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 No ankylosis across the SI joints. No healing sacral and spacing fracture line. Degenerative changes L5-S1. Procedure Note Balwinder Clancy MD - 06/11/2019 Pelvis AP Left hip 2 views Right hip 2 views Bilateral sacroiliac joints 3 views History: Bilateral hip pain Findings: AP pelvis: There is distention of the left S1 sacral ala. 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 No sacroiliac joint diastases. Left hip: Spur off of the inferior aspect the left femoral head. The femoral neck is intact. Minimal trochanteric enthesopathy with peripheral vascular disease. Right hip: The femoral neck and intertrochanteric region is normal. Spurring off the greater trochanter. Lower lumbar facet arthropathy. 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 No ankylosis across the SI joints. No healing sacral and spacing fracture line. Degenerative changes L5-S1. IMPRESSION Mild left hip degenerative changes. Lower lumbar facet arthropathy. Reading Radiologist: Balwinder Clancy MD on 06/11/2019 at 12:15 PM Haley Lerma MD DIAGNOSTIC IMAGING O RDERABLES * RADHA PANEL COMPREHENSIVE (06/11/2019 9:58 AM 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) Anti-dsDNA Quantitative <1 0 - 9 IU/mL [facility] INSURANCE BILL Comment: Negative <5 Equivocal 5 - 9 Positive >9 TATTOO AND BODY ARTIST Antibody <0.2 0.0 - 0.9 AI [facility] INSURANCE BILL Carroll (PARISH) Antibody <0.2 0.0 - 0.9 AI [facility] INSURANCE BILL Antiscleroderma-70 Antibody <0.2 0.0 - 0.9 AI [facility] INSURANCE BILL Sjogren's Antibodies (SSA) <0.2 0.0 - 0.9 AI [facility] INSURANCE BILL Sjogren's Antibodies (SSB) <0.2 0.0 - 0.9 AI [facility] INSURANCE BILL Antichromatin Antibodies <0.2 0.0 - 0.9 AI [facility] INSURANCE BILL Eufemia-1 Antibody <0.2 0.0 - 0.9 AI [facility] INSURANCE BILL Centromere B Antibody <0.2 0.0 - 0.9 AI [facility] INSURANCE BILL See Below [facility] INSURANCE BILL Comment: Autoantibody Disease Association Condition Frequency --------- Antinuclear Antibody, SLE, mixed connective Direct (RADHA-D) tissue diseases --------- dsDNA SLE 40 - 60% --------- Chromatin Drug induced SLE 90% SLE 48 - 97% --------- SSA (Ro) SLE 25 - 35% Sjogren's Syndrome 40 - 70% Lupus 100% --------- SSB (La) SLE 10% Sjogren's Syndrome 30% --------- Sm (anti-Carroll) SLE 15 - 30% --------- TATTOO AND BODY ARTIST Mixed Connective Tissue Disease 95% (U1 nRNP, SLE 30 - 50% anti-ribonucleoprotein) Polymyositis and/or Dermatomyositis 20% --------- Scl-70 (antiDNA Scleroderma (diffuse) 20 - 35% topoisomerase) Crest 13% --------- Eufemia-1 Polymyositis and/or Dermatomyositis 20 - 40% --------- Centromere B Scleroderma - Crest variant 80% FASTING Blood BLOOD SPECIMEN / Unknown 06/11/2019 9:58 AM 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 06/11/2019 Narrative Resulting Agency Comment Lab Testing performed at: [facility] [id number] Haley Lerma MD LAB - SEROLOGY ORDER ALEXANDRA Performing Organization Address [facility] de Phone Number [facility] INSURANCE BILL [address] [place] [address] * RHEUMATOID ARTHRITIS PANEL (06/11/2019 9:58 AM 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) Rheumatoid Factor <10.0 0.0 - 13.9 IU/mL [facility] INSURANCE BILL CCP Antibodies IgG/IgA 9 0 - 19 units [facility] INSURANCE BILL Comment: Negative <20 Weak positive 20 - 39 Moderate positive 40 - 59 Strong positive >59 FASTING Blood BLOOD SPECIMEN / Unknown 06/11/2019 9:58 AM 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 06/11/2019 Narrative Resulting Agency Comment [facility] [address] [facility] [id number] Haley Lerma MD LAB - SEROLOGY ORDER ALEXANDRA Performing Organization Address City/[facility] Co de Phone Number [facility] INSURANCE BILL [address] [place] [address] * CK BLOOD (06/11/2019 9:58 AM 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) CK 38 29 - 168 U/L [facility] INSURANCE BILL Comment:FASTING Blood BLOOD SPECIMEN / Unknown 06/11/2019 9:58 AM 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 06/11/2019 Narrative Resulting Agency Comment Lab Testing performed at: [facility] [address] [place] [id number] Haley Lerma MD LAB - CHEMISTRY ELISE HOLLY Performing Organization Address [facility] Co de Phone Number [facility] INSURANCE BILL [address] [place] [address] * COMPLEMENT C3 C4 PANEL (06/11/2019 9:58 AM 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) Complement C3 150 82 - 167 mg/dL [facility] INSURANCE BILL Complement C4 32 14 - 44 mg/dL [facility] INSURANCE BILL Comment:FASTING Blood BLOOD SPECIMEN / Unknown 06/11/2019 9:58 AM 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 06/11/2019 Narrative Resulting Agency Comment [facility] performed [facility]: [facility] [address] [facility] [phone] Haley Lerma MD LAB - CHEMISTRY ELISE HOLLY Performing Organization Address [facility] Co de Phone Number [facility] INSURANCE BILL [address] [place] [address] * CXR - PA & LATERAL (03/11/2018 7:29 PM CDT) Anatomical Region Laterality Modality Chest Radiographic [place] 03/12/2018 7:37 AM CDT Impressions 03/12/2018 10:56 AM CDT No radiographic evidence of acute lung disease. Minimal prominence of the right hilum, which could be simply vascular, although prominent lymph node is not excluded. Correlation with previous studies from outside institution should be performed. If these are not available, consider follow-up in 3 months with chest PA and lateral to ensure stability. Per [facility] protocol, the exam was entered into the thoracic PACs folder for long-term tracking. Initial patient management should remain under the direction of the referring clinician. For assistance in care coordination, please contact [facility] thoracic nurse coordinator ([phone]). Reading Radiologist: Janessa Zamudio MD on 03/12/2018 at 10:56 AM Narrative 03/12/2018 10:56 AM CDT CHEST X-RAY, 2 VIEWS: HISTORY: Shortness of breath TECHNIQUE: PA and lateral chest were obtained. COMPARISON: None FINDINGS: There is no focal consolidation or pleural effusion. The cardiopericardial silhouette is normal in size. The right hilum appears slightly prominent, that could be simply vascular, although in the absence of previous studies, the possibility of lymphadenopathy is not excluded. There is no pneumothorax. The bony structures are intact. Procedure Note Janessa Zamudio MD - 03/12/2018 CHEST X-RAY, 2 VIEWS: HISTORY: Shortness of breath TECHNIQUE: PA and lateral chest were obtained. COMPARISON: None FINDINGS: There is no focal consolidation or pleural effusion. The cardiopericardial silhouette is normal in size. The right hilum appears slightly prominent, that could be simply vascular, although in the absence of previous studies, the possibility of lymphadenopathy is not excluded. There is no pneumothorax. The bony structures are intact. IMPRESSION No radiographic evidence of acute lung disease. Minimal prominence of the right hilum, which could be simply vascular, although prominent lymph node is not excluded. Correlation with previous studies from outside institution should be performed. If these are not available, consider follow-up in 3 months with chest PA and lateral to ensure stability. Per [facility] protocol, the exam was entered into the thoracic PACs folder for long-term tracking. Initial patient management should remain under the direction of the referring clinician. For assistance in care coordination, please contact [facility] thoracic nurse coordinator ([phone]). Reading Radiologist: Janessa Zamudio MD on 03/12/2018 at 10:56 AM Killian Branhart MD DIAGNOSTIC IMAGING O RDERABLES * EKG 12-LEAD (03/11/2018 7:11 PM CDT) Ventricular Rate 50 BPM [facility] Atrial Rate 50 BPM [facility] P-R Interval 144 ms [facility] QRS Duration ms 76 ms [facility] Q-T Interval ms 482 ms [facility] QTC Calculation (Bezet) 439 ms [facility] Calculated P [place] 53 degrees [facility] Calculated R [place] 34 degrees [facility] Calculated T [place] 72 degrees [facility] Interpretation EKG Sinus bradycardia with premature supraventricular complexes Low voltage QRS Borderline ECG Confirmed by MAYUR ADLER MD ([id number]) on 03/14/2018 10:38:10 AM [facility] 03/11/2018 7:11 PM CDT 03/14/2018 10:38 AM CDT Killian Barnhart MD ECG ORDERABLES [facility] * (ABNORMAL) ISTAT CHEM8+ PANEL TEJAS (03/11/2018 7:05 PM CDT) Glucose Venous POCT 123(H) 74 - 106 mg/dL 03/11/2018 7:10 PM CDT [facility] Sodium Venous 143 136 - 145 mmol/L 03/11/2018 7:10 PM CDT [facility] Potassium POCT 4.1 3.5 - 5.1 mmol/L 03/11/2018 7:10 PM CDT [facility] Chloride Venous POCT 102 98 - 107 mmol/L 03/11/2018 7:10 PM CDT [facility] TCO2 Venous POCT 31(H) 23 - 27 mmol/L 03/11/2018 7:10 PM CDT [facility] Anion Gap Venous POCT 16 10 - 20 mmol/L 03/11/2018 7:10 PM CDT [facility] BUN Venous POCT 11 7 - 17 mg/dL 03/11/2018 7:10 PM CDT [facility] Creatinine Venous POCT 0.9 0.5 - 1.3 mg/dL 03/11/2018 7:10 PM CDT [facility] Calcium Ionized Venous POCT 1.18 1.12 - 1.32 mmol/L 03/11/2018 7:10 PM CDT [facility] Sample iSTAT VENOUS 03/11/2018 7:10 PM CDT [facility] CPB iSTAT No 03/11/2018 7:10 PM CDT [facility] Blood BLOOD SPECIMEN / Unknown 03/11/2018 7:05 PM CDT 03/11/2018 7:10 PM CDT Killian Barnhart MD LAB - POINT OF CARE ORDERABLES Performing Organization Address City/[facility]/ZIP Co de Phone Number [facility] [address] [place] [address] * BMP w CA+ IONIZED iSTAT POC in House [place] (03/11/2018 6:58 PM CDT) Comment Notification Label 03/11/2018 8:00 PM CDT [facility] Blood BLOOD SPECIMEN / Unknown 03/11/2018 6:58 PM CDT 03/11/2018 6:59 PM CDT Killian Barnhart MD LAB BLOOD ORDERABLES Performing Organization Address City/[facility]/ZIP Co de Phone Number [facility] [address] [place] [address] * (ABNORMAL) NT-PRO BNP (03/11/2018 6:40 PM CDT) NT-proBNP 757.0(H) <300.0 pg/mL 03/11/2018 8:29 PM CDT [facility] Blood BLOOD SPECIMEN / Unknown Venipuncture / Unknown 03/11/2018 6:40 PM CDT 03/11/2018 8:10 PM CDT Narrative [facility] - 03/11/2018 8:29 PM CDT NT-proBNP Patient Age Acute HF Unlikely Acute HF Likely <50 years <300 pg/mL >450 pg/mL 50-75 years <300 pg/mL >900 pg/mL >75 years <300 pg/mL >1800 pg/mL Reference: KARIE Jorge et al. ICON Study. Heart Journal (2006) 27, 330- 337 Both BNP and NT-proBNP derive from the precursor molecule called proBNP which is secreted from the ventricles in response to ventricle volume expansion and/or pressure overload. The secreted proBNP is subsequently cleaved by enzymes to form BNP, the active hormone and NT-proBNP an inactive metabolite. NT-proBNP has a longer half-life of 1.5-2.0 hours verses BNP with a half-life of 20 min for BNP. Both are useful biomarkers of ventricular distension due to increased intracardiac pressure. Both BNP and NT-proBNP increase with age and renal insufficiency. Increased concentrations of NT-proBNP have also been observed in the setting of acute myocardial infarction, right ventricular failure, valvular heart disease, and atrial fibrillation. Killian Barnhart MD LAB - CHEMISTRY ELISE HOLLY [facility] Organization Address City/State/ZIP Co de Phone Number [facility] [address] [place] [address] * (ABNORMAL) D-DIMER (03/11/2018 6:40 PM CDT) [facility] D-Dimer 1.04(H) 0.17 - 0.5 mg/L FEU 03/11/2018 8:24 PM CDT [facility] Blood BLOOD SPECIMEN / Unknown Venipuncture / Unknown 03/11/2018 6:40 PM CDT 03/11/2018 8:10 PM CDT [facility] - 03/11/2018 8:24 PM CDT The [employer] D-Dimer assay is intended for use as an aid in diagnosis of venous thromboembolism [(VTE): deep vein thrombosis (DVT), pulmonary embolism (PE), and disseminated intravascular coagulation (DIC)], and has received U.S. Food and Drug Administration (FDA) approval to exclude VTE in patients with low or moderate pretest probability of PE or DVT (per Wells' rules). At a clinical cut-off value 0.50 mg/L FEU, the Negative Predictive Value of this assay is 99.8% for excluding PE and 100% for excluding DVT. A very low percentage of patients with VTE may yield D-Dimer results below the cut-off value. An elevated D-Dimer result has low specificity (40.4% for PE, 35.5% for DVT) and is a poor predictor of VTE. An elevated D-Dimer result may indicate DIC in the appropriate clinical setting. Results of this test should always be interpreted in conjunction with the patient's medical history, clinical presentation, and other findings. Killian Barnhart MD LAB - COAGULATION OR DERABLES [facility] [address] [place] [address] Care Teams Moving Picture Operator Relationship Specialty Start Date End Date Brigitte Foley MD [address] [address] PCP - General Internal Medicine 06/08/23 [place] [id number] [id number] Rheumatology 06/11/19
--- OUTSIDE RECORDS SUMMARY | 2024-08-26 18:50 | XMS_ITS | Clinical Summary ---
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 Name Role Phone Chau Anaya MD Unavailable + [phone] Brigitte Foley MD Primary Care Provider [phone] Allergies Active Allergy Reactions Criticality Noted Date Comments Codeine Stomach upset Low 03/11/2018 TOLERATES MORPHINE 09/07/18 Medications magnesium [id number] amide 42 mg (500 mg)- 250 mg [...] mg tabletIndicatio ns:PAF (paroxysmal atrial fibrillation) (CMS/HCC) (HCC) TAKE 1 TABLET TWICE DAILY 180 tablet [...] 90 tablet 1 04/26/20 24 025 Discontinued(R eoarmaaner) Active Problems Problem Noted Date Diagnosed Date Arthritis of left knee 08/21/2023 Assessment & Plan (08/21/2023 2:48 PM WEB CONTENT EDITOR): Radiographically the patient has fairly advanced arthritis [...] tendon Assessment & Plan (08/21/2023 2:47 PM WEB CONTENT EDITOR): Patient likely has chronic posterior tibial tendon insufficiency and 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 She does have underlying neuropathy would be vulnerable to development of a Charcot joint. She most likely should be seen by a food service specialist referral to Dr. Martinez was given. She is wearing poorly made shoes for someone with neuropathy. Peripheral arterial disease 08/21/2023 Assessment & Plan (08/21/2023 2:48 PM WEB CONTENT EDITOR): Patient likely has significant peripheral arterial disease in her leg. Her diabetes and previous smoking with hypertension likely exacerbate her condition. Would recommend evaluation by a vascular specialist as bypass or stenting may be needed. Constipation 08/15/2023 longterm (current) use of anticoagulants 2022 Dyslipidemia 07/22/2022 [...] 03/26/2021 Assessment & Plan (07/17/2022 10:54 PM WEB CONTENT EDITOR): Continue Eliquis 5 mg b.i.d. asymptomatic per her report. Continue to monitor. Assessment & Plan (03/16/2022 11:01 PM CDT): Chronic. Rare. Continue current regimen per cardiology. Assessment & Plan (11/11/2021 9:50 AM CDT): Intermittent palpitations continue. Has appointment to see cardiology-Dr. Cosby. She is taking her Eliquis. Assessment & Plan (08/03/2021 6:14 AM WEB CONTENT EDITOR): Continue to follow-up with Dr. Seaman. Currently taking Eliquis daily. SOB is noted, but unchanged. Assessment & Plan (04/28/2021 6:19 AM CDT): Continue to follow-up with Dr. Seaman. Currently taking Eliquis daily. Asymptomatic currently. BENITEZ on CPAP 01/27/2021 Assessment & Plan (07/17/2022 11:06 PM WEB CONTENT EDITOR): Still using nightly. Assessment & Plan (04/26/2022 1:55 PM CDT): Has been using device 10-12 hrs with mild interruption for urination. Assessment & Plan (03/16/2022 11:03 PM CDT): Has continued to be adherent to nightly use next. No concerns at present. Assessment & Plan (11/11/2021 9:50 AM CDT): Is using nightly. Doing well. Assessment & Plan (08/03/2021 6:15 AM WEB CONTENT EDITOR): Doing well on CPAP. Continue to follow-up [...] 01/25/2021 Assessment & Plan (07/17/2022 10:55 PM WEB CONTENT EDITOR): Chronic. Stable. Continue Lyrica 25mg daily. Assessment [...] 11/10/2020 Assessment & Plan (07/17/2022 10:57 PM WEB CONTENT EDITOR): Counseled on dietary recommendations regarding management. Overall is doing well. BG is 105 today. Assessment & Plan (03/16/2022 11:04 PM CDT): Labs reviewed today. Overall doing well with changes to dietary intake. Assessment & Plan (11/11/2021 9:52 AM CDT): Chronic. Labs reviewed. Continue to monitor diet. Chair exercise encouraged. Assessment & Plan (08/03/2021 6:16 AM WEB CONTENT EDITOR): Counseled on monitoring carbs-continues to struggle. 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 Last A1C 5.4 (05/2021). Assessment & Plan (04/28/2021 6:21 AM CDT): Labs today. Counseled on monitoring carbs. Assessment & Plan (01/27/2021 6:55 AM CDT): Improved from last. Labs reviewed with patient. Continue current. Mild episode of recurrent major depressive disor marilyn 09/17/2019 Assessment & Plan (07/17/2022 11:00 PM WEB CONTENT EDITOR): Improved. Overall feels that it is controlled. [...] limiting. Assessment & Plan (08/07/2020 9:15 AM WEB CONTENT EDITOR): Improved. Has adjusted to COVID Assessment & Plan (01/16/2020 2:30 PM CDT): Con't cymbalta. Needs socialization-but COVID is an issue. Con't to talk with family. Assessment & Plan (10/07/2019 8:02 PM CDT): Stable. Not like previously. CV19 in community-is staying in-missing socialization. Talking with family. Con't cymbalta. Call if worsening. 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 Still has some issues with back pain. Con't to follow-up with Dr. Lerma. Assessment & Plan (04/27/2022 12:28 PM CDT): Has con't to follow-up to with Dr. Lerma. Notes significant deconditioning in lower extremities. Has [employer] video at home. Aware to use. Assessment & Plan (11/11/2021 9:55 AM CDT): Continue to follow-up with Rheumatology-Dr. Lerma. Off of arava. Is on renvoq with good response. Needs exercise to assist with maintaining mobility. Assessment & Plan (08/03/2021 6:18 AM WEB CONTENT EDITOR): ROM and arthralgias are improved on remvoq [...] assist. Assessment & Plan (08/07/2020 10:26 AM WEB CONTENT EDITOR): Con't to f/u with Dr. Lerma. Some concerns for increased OA in Low back. Celebrex to assist. Counseled physical activity will help with this also. Assessment & Plan (10/07/2019 7:41 PM CDT): Improving, but not completely. Still working with Dr. Hernandez. Some improvement with arava. Assessment & Plan (07/26/2019 10:08 PM WEB CONTENT EDITOR): Con't f/u with Dr. Lerma. On Arava x 2 days. No improvement as of yet. Aware of immune suppression. Morbid obesity with BMI of 45.0-49.9, adult ([facility]) 01/02/2019 Assessment & Plan (08/21/2023 2:49 PM WEB CONTENT EDITOR): Patient's current weight provides with a BMI over 48. Would highly encourage the patient work on a graduated low-impact exercise program in conjunction with proper dieting. This will reduce stress on her knee and may improve the natural longevity of the joint Assessment & Plan (08/03/2021 6:16 AM WEB CONTENT EDITOR): Bmi-46.5. BMI Follow-up includes: nutrition counseling. Assessment [...] activity. Assessment & Plan (08/09/2020 7:57 PM WEB CONTENT EDITOR): Worsening-but is not able to leave her [...] pressure, constipation, diabetes, diverticulosis, some cancers. (Source: HealthyPeople.gov) Gastroesophageal reflux disease 01/02/2019 Assessment & Plan [...] 10/02/2018 Assessment & Plan (07/26/2019 10:04 PM WEB CONTENT EDITOR): Stable. Unchanged. Counseled on need for wt [...] multivitamin. Assessment & Plan (08/09/2020 7:52 PM WEB CONTENT EDITOR): Labs today. Continue current. Essential hypertension 05/16/2018 Assessment & Plan (07/17/2022 10:59 PM WEB CONTENT EDITOR): Controlled. Continue current regimen losartan 50, amlodipine 5 mg. Assessment & Plan (03/16/2022 11:05 PM CDT): Insert chronic. Controlled. Continue amlodipine as well as furosemide per Cardiology. 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 Continue current regimen lasix, losartan, amlodipine. Call with home readings. Assessment & Plan (08/03/2021 6:17 AM WEB CONTENT EDITOR): Marginal control. Was seen by cardiology without [...] regimen. Assessment & Plan (08/09/2020 7:52 PM WEB CONTENT EDITOR): Elevated-but has not taken medications today. Aware [...] cardiac eval. Declined. Wants to go to [facility]. Assessment & Plan (10/07/2019 8:38 PM CDT): Controlled. Continue current regimen. Normal rate and rhythm with repeat. Suspect oximeter issue. No pauses. Just CP. Lasting more than 1/2 hr at a time. Assessment & Plan (07/26/2019 10:06 PM WEB CONTENT EDITOR): Controlled. Continue current regimen. Assessment & Plan (04/11/2019 10:55 AM CDT): Controlled. Continue current regimen. Counseled on low sodium and to participate in 150 min of activity/wk. Assessment & Plan (12/26/2018 8:56 PM CDT): Controlled. Continue current regimen. Assessment & Plan (10/14/2018 7:38 PM CDT): Controlled. Continue current regimen. Hypothyroidism 05/16/2018 Assessment & Plan (07/17/2022 10:59 PM WEB CONTENT EDITOR): Controlled. Continue current regimen of levothyroxine 125 [...] rotating. Assessment & Plan (08/07/2020 10:25 AM WEB CONTENT EDITOR): New tremor. Labs as ordered.Pt aware of possible cause. Assessment & Plan (01/16/2020 2:30 PM CDT): Labs today. Continue current. Constipation and edema are both reported. MDD is chronic. Assessment & Plan (07/26/2019 10:07 PM WEB CONTENT EDITOR): Labs today. Continue current. ? Wt gain-although [...] normal. Labs ordered. ? 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 Assessment & Plan (10/02/2018 12:17 [...] disease) Assessment & Plan (07/17/2022 10:58 PM WEB CONTENT EDITOR): Controlled. Continue current regimen of PRN albuterol and regular use of symbicort. Assessment & Plan (03/16/2022 11:05 PM CDT): Stable. Continue current p.r.n. albuterol as well as daily Symbicort. Assessment & Plan (11/11/2021 9:56 AM CDT): Chronic. Stable. Continue current regimen-symbicort, albuterol prn. Assessment & Plan (08/03/2021 6:17 AM WEB CONTENT EDITOR): Mild changes. Advised on which medication is rescue and which is rescue-had reversed. Continue current. Albuterol p.r.n. as well as Symbicort. Assessment & Plan (04/28/2021 6:25 AM CDT): Stable. Continue current. Albuterol p.r.n. as well as Symbicort. Assessment & Plan (10/31/2020 4:21 PM CDT): Stable when in doors. Con't current regimen. Assessment & Plan (08/09/2020 7:54 PM WEB CONTENT EDITOR): Moderately controlled. Would like to see pulmonology [...] both. Assessment & Plan (07/26/2019 10:06 PM WEB CONTENT EDITOR): Mild wheeze today. Start steroids. Counseled on [...] monitor. Assessment & Plan (08/07/2020 10:25 AM WEB CONTENT EDITOR): Increase gabapentin to 1 tab po daily, and 2 tabs po hs. See if improvement, avoid BB-bradycardia w/ use. Hx of hypothyroidism-also possible cause. Consider topamax. Pruritus 08/07/2020 04/28/2021 Abnormal US (ultrasound) of abdomen 03/30/2020 08/07/2020 Benign neoplasm of rectum and anal canal 03/30/2020 08/07/2020 Overview (03/30/2020): Added automatically from request for surgery [id number] Abdominal pain 03/30/2020 08/07/2020 Overview (03/30/2020): Added automatically from request for surgery [id number] Bronchitis, simple, chronic 10/08/2019 11/24/2022 Assessment & [...] monitor. Assessment & Plan (08/07/2020 9:14 AM WEB CONTENT EDITOR): With increased sedentary activity-improved. No concerns unless [...] monitor. Assessment & Plan (08/09/2020 7:56 PM WEB CONTENT EDITOR): Improved. Feels that it is better since [...] 11:00 AM CDT): Improved since moving to [place]. Has more social and family support. Housing [...] be reassessed at the next regular appointment. Encounters Date Type Department Care Team Description 08/26/2024 4:30 PM WEB CONTENT EDITOR Office Visit [facility] at [address] [phone] Brandi Bradley NP Left-sided chest pain (Primary Dx); Left arm pain 08/26/2024 Telephone [facility] at [facility] - [address] [place] [phone] Brigitte Foley MD Referral Request 08/22/2024 Orders Only [facility] at [facility] - [address] [place] [phone] Brigitte Foley MD Abnormal mammogram of right breast (Primary Dx) 08/20/2024 1:57 PM WEB CONTENT EDITOR - 08/20/2024 11:59 PM WEB CONTENT EDITOR Hospital Encounter [facility] [address] [place] [phone] Screening mammogram, encounter for Discharge Disposition: Discharge to home or self care 08/07/2024 Telephone [facility] at [address] [phone] Brigitte Foley MD 08/02/2024 1:12 PM WEB CONTENT EDITOR - 08/02/2024 11:59 PM WEB CONTENT EDITOR Hospital Encounter [facility] [place] [address], [address] [place] [address] Fredy Lozada MD Spinal stenosis of lumbar region with neurogenic claudication (Primary Dx) Discharge Disposition: Discharge to home or self care 08/02/2024 Telephone [facility] at [address], [address] [place] [address] Fredy Lozada MD Anticoagulation 08/02/2024 Telephone [facility] at [address] [place] [phone] Brigitte Foley MD Medical Question/Miscellaneous 07/26/2024 Telephone [facility] at [address] [place] [phone] Brigitte Foley MD Medical Records Request 07/17/2024 Telephone [facility] at [address] [place] [phone] Birgitte Foley MD Additional Services Or Orders; Medical Question/Miscellaneous 07/11/2024 Orders Only [facility] at [address] [place] [phone] Brigitte Foley MD 07/11/2024 Telephone [facility] at [address] [phone] Brigitte Foley MD 2024 Telephone [facility] at [address], [address] [place] [phone] Fredy Lozada MD [facility] 07/04/2024 Telephone [facility] at [address], [address] [place] [phone] Katia Sneed RN PMC Intake Assessment 07/02/2024 Telephone [facility] at [address] [place] [phone] Brigitte Foley MD Medical Question/Miscellaneous 07/01/2024 10:30 AM WEB CONTENT EDITOR Office Visit [facility] at [address] [phone] Brigitte Foley MD Acquired hypothyroidism (Primary Dx); Stage 3a chronic kidney disease (HCC); Spinal stenosis of lumbar region with neurogenic claudication; Screening for viral disease; PAF (paroxysmal atrial fibrillation) (CMS/HCC) (HCC); Essential hypertension; Morbid obesity with BMI of 45.0-49.9, adult (HCC); Mild episode of recurrent major depressive disorder (HCC) 06/28/2024 Telephone [facility] at [address] [phone] Brigitte Foley MD Referral Request; Recommendation Request 06/26/2024 Nurse Triage [facility] at [address] [phone] Brigitte Foley MD 06/26/2024 Telephone [facility] at [address] [phone] Brigitte Foley MD Referral Request 06/21/2024 Telephone [facility] at [address] [phone] Brigitte Foley MD Call Back; Medical Question/Miscellaneous from Last 3 Months Immunizations Immunization Administration Dates Next Due Influenza, Quad, Adjuvantate d, Intramuscular 03/27/2020 Influenza, Quadrivalent, Hig h Dose, Preservative Free, Intrr 04/17/2023,03/16/2022 Influenza, Trivalent, Adjuva nted, Intramuscular 04/09/2018 Influenza, Trivalent, High D ose, Split, Preservative Free, Intramuscular 04/15/2024,04/11/2019 Influenza, Trivalent, Preser vative Free, Intramuscular 03/27/2020 Influenza, Unspecified 04/19/2022,2021,04/08/2021,03/27,04/11/2019,04/09/2018,05/02/2017 ,04/09/2015,07/10/2014,05/12/2014,07/2012 Moderna SARS-CoV-2 Monovalen t Vaccination (12+ YRS) 05/11/2021,09/30/2020,09/02/2020 Endoart Sars-Cov-2 Bivalent V accination (12+ YRS) 05/01/2022 Pneumococcal Conjugate PCV 13 09/15/2016 Pneumococcal Conjugate, Unspecified 04/13/2017 Pneumococcal Polysaccharide PPV23 03/14/2015,07/2008 Pneumococcal, Unspecified 04/25/2017 Td, Unspecified 08/30/2014 Td, adsorbed 08/31/2014 Tdap 06/03/2022 ZOSTER Recombinant 08/23/2021,05/11/2021 Surgical History Surgery Date Site/Laterality Comments CHOLECYSTECTOMY REPLACEMENT TOTAL KNEE Right APPENDECTOMY PARTIAL HYSTERECTOMY BLADDER SURGERY 07/10/1998 - 07/09/1999 HYSTERECTOMY COLONOSCOPY 07/10/2016 - 07/09/2017 CATARACT EXTRACTION JOINT REPLACEMENT Knee TUBAL LIGATION 07/10/1978 - 07/09/1979 UPPER GASTROINTESTINAL ENDOSCOPY 09/05/2023 Medical History Medical History Date Comments Anxiety Hypertension GERD (gastroesophageal reflux disease) COPD (chronic obstructive pu lmonary disease) (HCC) BENITEZ on CPAP Fibromyalgia has seen rheumat ology in the past Depression Hypothyroidism Smoking quit in 1989 Back pain Benign neoplasm of rectum an d anal canal 03/30/2020 Added automatically from [facility] for surgery [id number] Olecranon bursitis, right elbow 04/26/2019 Breast lump on right side at 6 o'clock position 04/24/2019 Epigastric pain 12/23/2018 Anemia Arthritis Ages ago Chronic bronchitis (HCC) Emphysema of lung (HCC) Peptic ulceration Atrial fibrillation (CMS/HCC) (HCC) 03/26/2021 Lymphedema Sciatica Family History Medical History Relation Name Comments Dementia Brother Blood Clot Father COPD Mother Heart disease Mother Obesity Other Back Pain Sister Multiple sclerosis Sister Breast cancer Neg Hx Endometrial cancer Neg Hx Ovarian cancer Neg Hx Thyroid cancer Neg Hx Relation Name Status Comments Brother Father Mother Other Sister Social History Tobacco Use Types Packs/Day Years [...] file Not on file Not on file Obstetrics History Para Term AB IAB SAB Ectopic Multiple Livin g Live Births 4 4 4 Date Outcome GA Total Labor Labor/2nd/3rd Weight Sex Type Anes PTL Sarika A1 A5 Name Clin Term Term Term Term Last Filed Vital Signs Vital Sign Reading Time Taken Comments Blood Pressure 142/60 08/26/2024 4:29 PM WEB CONTENT EDITOR Pulse 86 08/26/2024 4:29 PM WEB CONTENT EDITOR Temperature 36.5 C (97.7 F) 08/26/2024 4:29 PM WEB CONTENT EDITOR Respiratory Rate 24 08/26/2024 4:29 PM WEB CONTENT EDITOR Oxygen Saturation 98% 08/26/2024 4:29 PM WEB CONTENT EDITOR Inhaled Oxygen Concentration - - Weight 116.1 kg (256 lb) 08/26/2024 4:29 PM WEB CONTENT EDITOR Height 162.6 cm (5' 4 ) 08/02/2024 1:21 PM WEB CONTENT EDITOR Body Mass Index 43.94 08/02/2024 1:21 PM WEB CONTENT EDITOR Plan of Treatment Health Maintenance Due Date Last Done Comments Foot Exam 1942 Dilated Eye Exam 05/14/2018 05/14/2017 Covid-19 Vaccine (5 - 4-2 5 season) 2024 05/01/2022, 05/01/2022, 05/11/2021, Additional history exists Well Visit 65+ 07/27/2024 07/27/2023, 04/27/2021 Hemoglobin A1C 10/22/2024 04/23/2024, 10/0 03/2023, 07/20/2022, Additional history exists Albumin Creatinine Ratio, Urine 04/23/2025 04/23/2024, 03/04/2022, 05/11/2021 Lipid Panel 04/23/2025 04/23/2024, 03/11, 04/17/2023, Additional history exists eGFR 04/23/2025 04/23/2024, 09/08, 06/19/2023, Additional history exists Depression Screening 07/01/2025 07/01/2024, 04/15/2024, 09/25/2023, Additional history exists Osteoporosis Screening-Bone Density Scan 07/11/2025 07/11/2023, 04/21/2021, 07/31/2018 Fall Risk Assessment 08/02/2025 08/02/2024, 07/01/2024, 04/15/2024, Additional history exists DTaP/Tdap/Td Vaccine (2 - Td or Tdap) 06/03/2032 06/03/2022, 08/31/2014, 08/30/2014 Pneumococcal vaccine 65+ Completed 017, 04/13/2017, 09/15/2016, Additional history exists Zoster Vaccine Completed 08/23/2021, 05/11/2021 Influenza Vaccine Completed 04/15/2024, , 04/19/2022, Additional history exists Hepatitis B Screening Completed 07/11/2024 Goals Goal Patient Goal Type Associated Problems Recent Progress Patient-Stated? Author CCM Chronic Pain Care Plan Chronic Care Management No Fatemeh Noble, RN Note: Problem: Chronic Pain Goals: 1. [...] on stairs Contact your local community or senior center for information on exercise, fall prevention programs, or options for improving home safety. Procedures Procedure Name Priority Date/Time Associated Diagnosis Comments SCREENING MAMMOGRAM BILATERAL W LIAM Schedule Routine, Read Routine (OP Routine) 08/20/2024 2:35 PM WEB CONTENT EDITOR Screening mammogram, encounter for TSH+FREE T4 Routine 07/11/2024 12:40 PM WEB CONTENT EDITOR HEPATITIS B CORE ANTIBODY, TOTAL Routine 07/11/2024 12:40 PM WEB CONTENT EDITOR HEPATITIS B SURFACE ANTIGEN Routine 07/11/2024 12:40 PM WEB CONTENT EDITOR HEPATITIS B SURFACE ANTIBODY (IMMUNE STATUS) Routine 07/11/2024 12:40 PM WEB CONTENT EDITOR EGFR Routine 04/23/2024 3:09 PM CDT Essential hypertension HEMOGLOBIN A1C Routine 04/23/2024 3:09 PM CDT Prediabetes LIPID PANEL Routine 04/23/2024 3:09 PM CDT Dyslipidemia ALBUMIN CREATININE RATIO, URINE Routine 04/23/2024 3:09 PM CDT Prediabetes DEXA AXIAL SKELETON BONE DENSITY 1 OR MORE SITES Schedule Routine, Read Routine (OP Routine) 07/11/2023 4:18 PM WEB CONTENT EDITOR Asymptomatic menopausal state DIABETES EYE EXAM Routine 05/14/2017 from Last 3 Months or Most Recently Relevant to Health Maintenance Results * (ABNORMAL) Screening Mammogram Bilateral W Liam (08/20/2024 2:35 PM WEB CONTENT EDITOR) Anatomical Region Laterality Modality Breast Bilateral Mammography 08/21/2024 12:5 3 PM WEB CONTENT EDITOR Impressions 08/21/2024 12:53 PM WEB CONTENT EDITOR There is increased skin and trabecular thickening over the RIGHT breast. FINAL ASSESSMENT: BI-RADS Category 0: Incomplete - Need Additional Imaging Evaluation. RECOMMENDATION: Findings in the right breast require additional evaluation. Diagnostic mammogram and possible ultrasound images of the right breast are recommended at this time. Electronically signed by: Tran Tejeda M.D. Narrative 08/21/2024 12:53 PM WEB CONTENT EDITOR EXAMINATION: BILATERAL SCREENING MAMMOGRAM COMPARISON: Multiple prior [...] calcification, or distortion in the LEFT breast. Self Screening Mammogram IMG MAMMO PROCEDURES Fi nal Result * TSH+Free T4 (07/11/2024 12:40 PM WEB CONTENT EDITOR) TSH 2.340 0.450 - 4.500 uIU/mL [facility] - 01 T4,Free(Direct) 1.73 0.82 - 1.77 ng/dL [facility] - 01 07/11/2024 12:4 0 PM WEB CONTENT EDITOR 07/11/2024 Narrative [facility] - 07/12/2024 7:36 AM WEB CONTENT EDITOR Performed at: [address] [place] [id number] Legal Administrator: Faraz Rojas PhD, Phone: [phone] Specimen Comment: A courtesy copy of this report has been sent to [phone] Brigitte Foley MD LAB BLOOD ORDERABLES Final R esult [facility] - 01 * Hepatitis B core antibody, total (07/11/2024 12:40 PM WEB CONTENT EDITOR) Hep B core IgG/IgM Negative Negative [facility] - 01 07/11/2024 12:4 0 PM WEB CONTENT EDITOR 07/11/2024 Narrative [facility] - 07/12/2024 7:36 AM WEB CONTENT EDITOR Performed at: [address] [id number] Legal Administrator: Faraz Rojas PhD, Phone: [phone] Brigitte Foley MD LAB MICROBIOLOGY - GENERAL O RDERABLES Final Result Performing Organization Address [facility] de Phone Number [facility] * Hepatitis B surface antibody (immune status) (07/11/2024 12:40 PM WEB CONTENT EDITOR) HBsAb (immune status) Non Reactive [facility] - Comment: Non Reactive: Not immune to HBV infection. Equivocal: Unable to determine if anti-HBs is present at levels consistent with immunity. Reactive: Anti-HBs concentration detected at greater than 10 mIU/mL. Individual is considered to be immune to infection with HBV. 07/11/2024 12:4 0 PM WEB CONTENT EDITOR 07/11/2024 Narrative [facility] - 07/12/2024 7:36 AM WEB CONTENT EDITOR Performed at: [address] [id number] Legal Administrator: Faraz Rojas PhD, Phone: [phone] Brigitte Foley MD LAB MICROBIOLOGY - GENERAL O RDERABLES Final Result Performing Organization Address [facility] de Phone Number [facility] - * Hepatitis B Surface Antigen (07/11/2024 12:40 PM WEB CONTENT EDITOR) HepBsAg Negative Negative [facility] - 07/11/2024 12:4 0 PM WEB CONTENT EDITOR 07/11/2024 Narrative [facility] - 07/12/2024 7:36 AM WEB CONTENT EDITOR Performed at: [address] [place] [id number] Legal Administrator: Faraz Rojas PhD, Phone: [phone] Brigitte Foley MD LAB MICROBIOLOGY - GENERAL O RDERABLES Final Result [facility] - 01 * (ABNORMAL) eGFR (04/23/2024 3:09 PM CDT) eGFR 33(L) >=60 mL/min/1. 73 m2 Comment: [...] ORDERABLES Final R esult Performing Organization Address City/[facility]/ZIP Co de Phone Number [facility] [id number] [place] Department of [place] [address] * Albumin Creatinine Ratio, Urine (04/23/2024 3:09 PM CDT) Albumin Ur <12.0 mg/L Comment: Interpretive Data No reference range established. Current interpretive data was last revised 2018. Creatinine Ur 109.1 mg/dL EV [facility] Comment: Interpretive Data No reference range established. Current interpretive data was last revised 2018. Albumin Creatinine Ratio, Ur <11 1 - 29 mg/g EV [facility] Urine 04/23/2024 3:09 PM CDT 04/24/2024 10:11 AM CDT Brigitte Foley MD LAB URINE ORDERABLES Final R [facility]new [facility] Performing Organization Address [facility] Co de Phone Number [place] [address] [address] [place] [address] * Hemoglobin A1c (04/23/2024 3:09 PM CDT) Hgb A1C 5.6 4.0 - 5.6 % Estimated Average Glucose 114 mg/dL EV [facility] Comment: The ADA recommends reporting an estimated Average Glucose (eAG) with all Hemoglobin A1c results using the equation derived from a study of 507 normal and diabetic adults. Minority populations were underrepresented and children were not included. (Diabetes Care 31:3413-6316, 2008). The eAG is not equivalent to a fasting glucose. Blood 04/23/2024 3:09 PM CDT 04/24/2024 10:11 AM CDT Brigitte Foley MD LAB BLOOD ORDERABLES Final R julienult Performing Organization Address [facility] Co de Phone Number [place] [address] [address] [place] [address] * Lipid panel (04/23/2024 3:09 PM CDT) [...] NCEP Expert Panel. Circulation 2004;110:227 3. Gary Jara al. MCKENNA Cardiol. 2020 November 07;5(5):540-548. doi: 10.1001/jamacardio.2020.0013 Current Interpretive Data was [...] LAB [place] [address] [address] [place] [address] * Dexa Axial Skeleton Bone Density 1 or 2 Site (07/11/2023 4:18 PM WEB CONTENT EDITOR) Anatomical Region Laterality Modality Body N/A Other 07/11/2023 4:24 PM WEB CONTENT EDITOR Impressions 07/11/2023 4:24 PM WEB CONTENT EDITOR Osteoporosis. Consider follow-up bone densitometry evaluation in 1 to 2 years. Electronically signed by: Gómez Goetz M.D. Narrative 07/11/2023 4:24 PM WEB CONTENT EDITOR EXAMINATION: DEXA AXIAL SKELETON BONE DENSITY 1 OR MORE SITES DATE: 07/11/2023 3:30 PM HISTORY: 83 [id number] postmenopausal woman. Screening COMPARISON: 04/21/2021 FINDINGS: The [...] SITES DATE: 07/11/2023 3:30 PM HISTORY: 83 [id number] postmenopausal woman. Screening COMPARISON: 04/21/2021 FINDINGS: The [...] by: Gómez Goetz M.D. Brigitte Foley MD IM DXA PROCEDURES Final Res ult * DIABETES EYE EXAM (05/14/2017) [facility] Signature Diabetic Eye Exam Normal Historical Provider HEALTH MAINTENANCE Final Result from Last 3 Months or Most Recently Relevant to Health Maintenance Insurance MEDICARE [facility] [employer] MEDICARE HMO [facility] MEDICARE HMO Advance Directives For more information, please contact: [phone] * Full Code (Latest Code Status on [...] Alden Mcbride Health Care Agent Care Teams Ankle Patch Molder Relationship Specialty Start Date End Date Brigitte Foley MD [address] [facility] [address] [place] [address] PCP - General Internal Medicine 04/17/23 Chau Anaya MD [address] [place] [address] Consulting Physician Interventional Cardiology 04/06/22
--- OUTSIDE RECORDS SUMMARY | 2024-08-26 18:51 | XMS_ITS | Clinical Summary ---
Author Organization [facility] [employer] Address [address] [place] [address] Care Team Providers Care Nurse Tech Name Role Phone Haley Lerma MD Unavailable [phone] Brigitte Foley MD Primary Care Provider [phone] Source Comments [facility],non-owned Affiliates and Associated Physician Practices is amultiple site organization consisting of ambulatory clinics and hospital sitesin [place], [place], [place] and [place]. This disclosure is being madepursuant to the Care Everywhere program and may not contain all information available regarding this patient. 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 Encounters Date Type Department Care Team Description 06/11/2024 2:15 PM ROVING OR YARN COLOR CHECKER Office Visit [facility] Medical [facility] - Rheumatology [address] [address] Haley Lerma MD Rheumatoid arthritis without rheumatoid factor, multiple sites (HCC) (Primary Dx); Polyarthralgia; Chronic radicular pain of lower back; High risk medications (not anticoagulants) long-term use; Immunosuppressed status (HCC); Fibromyalgia; Vitamin D deficiency; Osteopenia of multiple sites from Last 3 Months Immunizations Name Administration Dates Next Due COVID PFIZER BIVALENT 12Y+ 30mcg/0.3ML 05/01/2022 Covid Michaela primary monova lent 12+ yr 0.5mL 05/11/2021,05/11/2021,09/30/2020,2020 [...] file Gender Identity Female 08/19/2020 8:35 AM ROVING OR YARN COLOR CHECKER Sexual Orientation Not on file Last Filed Vital Signs Vital Sign Reading Time Taken Comments Blood Pressure 128/80 06/11/2024 2:27 PM ROVING OR YARN COLOR CHECKER Pulse 91 06/11/2024 2:27 PM ROVING OR YARN COLOR CHECKER Temperature 36.3 C (97.4 F) 10/06/2022 1:38 PM CDT Respiratory Rate 18 03/11/2018 6:41 PM CDT Oxygen Saturation 97% 06/11/2024 2:27 PM ROVING OR YARN COLOR CHECKER Inhaled Oxygen Concentration - - Weight 110.7 kg (244 lb) 06/11/2024 2:27 PM ROVING OR YARN COLOR CHECKER Height 162.6 cm (5' 4 ) 06/11/2024 2:27 PM ROVING OR YARN COLOR CHECKER Body Mass Index 41.88 06/11/2024 2:27 PM ROVING OR YARN COLOR CHECKER Plan of Treatment Upcoming Encounters Date Type Department Care Team (Late st Contact Info) Description 10/17/2024 2:30 PM CDT Office Visit [facility] Medical [facility] - Rheumatology [address] [facility] [address] [place] [address] Gilma Ann, BONE DRIER-AUTO PARTS HANDLER [address] [facility] [address] [place] [address] Health Maintenance Due Date Last Done Comments Respiratory Syncytial Virus (RSV) Vaccine Pt: or over 60 yrs (1 - 1-dose 75+ series) 2017 COVID-19 VACCINE ( season) 2024 05/01/2022, 05/11/2021, 05/11/2021, Additional history exists DEPRESSION SCREENING 07/10/2024 06/11/2024 MEDICARE AWV CALENDAR YEAR 2024 DTAP/TDAP/TD VACCINES (4 - Td or Tdap) 06/03/2032 06/03/2022, 08/31/2014, 08/30/2014 PNEUMOCOCCAL VACCINE 50+ Completed 017, 04/13/2017, 09/15/2016, Additional history exists ZOSTER VACCINE Completed 08/23/2021, 05/11/2021 BONE DENSITY TESTING Completed 07/11/2023, 04/21/2021, 07/31/2018 INFLUENZA VACCINE Completed 04/15/2024, , 04/19/2022, Additional history exists HEPATITIS B VACCINE Aged Out No longe r eligible based on patient's age to complete this topic HIB VACCINE Aged Out No longer eligi ble based on patient's age to complete this topic HPV VACCINE Aged Out No longer eligi ble based on patient's age to complete this topic MENINGOCOCCAL (Group B) VACCINE Aged Out No longer eligible based on patient's age to complete this topic MENINGOCOCCAL VACCINE Aged Out No emory ranulfo eligible based on patient's age to complete this topic Procedures Procedure Name Priority Date/Time Associated Diagnosis Comments VITAMIN B12 FOLATE PANEL Routine 06/18/2024 2:47 PM ROVING OR YARN COLOR CHECKER Rheumatoid arthritis without rheumatoid factor, multiple sites (HCC) Polyarthralgia Chronic radicular pain of lower back High risk medications (not anticoagulants) long-term use Immunosuppressed status (HCC) Fibromyalgia Vitamin D deficiency Osteopenia of multiple sites ERYTHROCYTE SEDIMENTATION RATE Routine 06/18/2024 2:47 PM ROVING OR YARN COLOR CHECKER Rheumatoid arthritis without rheumatoid factor, multiple sites (HCC) Polyarthralgia Chronic radicular pain of lower back High risk medications (not anticoagulants) long-term use Immunosuppressed status (HCC) Fibromyalgia Vitamin D deficiency Osteopenia of multiple sites C-REACTIVE PROTEIN Routine 06/18/2024 2: 47 PM ROVING OR YARN COLOR CHECKER Rheumatoid arthritis without rheumatoid factor, multiple sites (HCC) Polyarthralgia Chronic radicular pain of lower back High risk medications (not anticoagulants) long-term use Immunosuppressed status (HCC) Fibromyalgia Vitamin D deficiency Osteopenia of multiple sites COMPREHENSIVE METABOLIC PANEL Routine 06/18/2024 2:47 PM ROVING OR YARN COLOR CHECKER Rheumatoid arthritis without rheumatoid factor, multiple sites (HCC) Polyarthralgia Chronic radicular pain of lower back High risk medications (not anticoagulants) long-term use Immunosuppressed status (HCC) Fibromyalgia Vitamin D deficiency Osteopenia of multiple sites CBC W AUTO DIFFERENTIAL Routine 06/18/2024 2:47 PM ROVING OR YARN COLOR CHECKER Rheumatoid arthritis without rheumatoid factor, multiple sites (HCC) Polyarthralgia Chronic radicular pain of lower back High risk medications (not anticoagulants) long-term use Immunosuppressed status (HCC) Fibromyalgia Vitamin D deficiency Osteopenia of multiple sites from Last 3 Months Results * C-REACTIVE PROTEIN (06/18/2024 2:47 PM ROVING OR YARN COLOR CHECKER) Pathologist [facility] C-Reactive Protein 5 0 - 10 mg/L [facility] INSURANCE BILL Blood BLOOD SPECIMEN / Unknown 06/18/2024 2:47 PM ROVING OR YARN COLOR CHECKER 06/18/2024 Narrative [facility] INSURANCE BILL - 06/19/2024 1:08 PM ROVING OR YARN COLOR CHECKER Performed at: [address] [place] [id number] [employer] Screening Plant Supervisor: Faraz Rojas PhD, Phone: [phone] Haley Lerma MD LAB - CHEMISTRY ORDE RABHAYLEY Performing Organization Address City/[facility]/ZIP Co de Phone Number [facility] INSURANCE BILL [address] [place] [address] * ERYTHROCYTE SEDIMENTATION RATE (06/18/2024 2:47 PM ROVING OR YARN COLOR CHECKER) Pathologist [facility] Erythrocyte Sedimentation Rate Westergren 11 0 - 40 mm/hr [facility] INSURANCE BILL Blood BLOOD SPECIMEN / Unknown 06/18/2024 2:47 PM ROVING OR YARN COLOR CHECKER 06/18/2024 Narrative [facility] INSURANCE BILL - 06/19/2024 11:09 AM ROVING OR YARN COLOR CHECKER Performed at: [address] [place] [id number] W[employer] Screening Plant Supervisor: Faarz Rojas PhD, Phone: [phone] Haley Lerma MD LAB - HEMATOLOGY ORD ERABLES [facility] INSURANCE BILL [address] [place] [address] * (ABNORMAL) CBC WITH DIFFERENTIAL (06/18/2024 2:47 PM ROVING OR YARN COLOR CHECKER) Pathologist [facility] WBC 7.3 3.4 - 10.8 x10E3/uL [facility] [...] BLOOD SPECIMEN / Unknown 06/18/2024 2:47 PM ROVING OR YARN COLOR CHECKER 06/18/2024 Narrative [facility] INSURANCE BILL - 06/19/2024 7:10 AM ROVING OR YARN COLOR CHECKER Performed at: 01 - [facility] [id number] [place], [place] [id number] W[employer] Screening Plant Supervisor: Faraz Rojas PhD, Phone: [phone] Haley Lerma MD LAB - HEMATOLOGY ORD ERABLES [facility] INSURANCE BILL [address] [place] [address] * (ABNORMAL) COMPREHENSIVE METABOLIC PANEL (06/18/2024 2:47 PM ROVING OR YARN COLOR CHECKER) Glucose 92 70 - 99 mg/dL [facility] [...] BLOOD SPECIMEN / Unknown 06/18/2024 2:47 PM ROVING OR YARN COLOR CHECKER 06/18/2024 Narrative [facility] INSURANCE BILL - 06/19/2024 7:10 AM ROVING OR YARN COLOR CHECKER Performed at: 01 - [facility] [address] [place], [place] [id number] Washing And Screening Plant Supervisor: Faraz Rojas PhD, Phone: [phone] Haley Lerma MD LAB - CHEMISTRY ELISE HOLLY [facility] INSURANCE BILL [address] [place] [address] * VITAMIN B12 FOLATE PANEL (06/18/2024 2:47 PM ROVING OR YARN COLOR CHECKER) Vitamin B12 466 232 - 1,245 pg/mL [facility] INSURANCE BILL Folate 18.0 >3.0 ng/mL [facility] INSURANCE BILL Comment: A serum folate concentration of less than 3.1 ng/mL is considered to represent clinical deficiency. Blood BLOOD SPECIMEN / Unknown 06/18/2024 2:47 PM ROVING OR YARN COLOR CHECKER 06/18/2024 Narrative [facility] INSURANCE BILL - 06/19/2024 10:11 AM ROVING OR YARN COLOR CHECKER Performed at: 01 - [facility] [address] [place], [place] [id number] Washing And Screening Plant Supervisor: Faraz Rojas PhD, Phone: [phone] Haley Lerma MD LAB - CHEMISTRY ELISE HOLLY [facility] INSURANCE BILL [address] [place] [address] from Last 3 Months Care Teams Nurse Tech Relationship Specialty Start Date End Date Brigitte Foley MD [address] [facility] [address], [place] [address] PCP - General Internal Medicine 06/08/23 [place] [address] [id number] Rheumatology 06/11/19
--- OUTSIDE RECORDS SUMMARY | 2024-08-26 18:51 | XMS_ITS | Encounter Summary ---
Author Organization [facility] Healthcare Address [address] [place] [address] Care Team Providers Care Medical Doctor Name Role Phone Chau Anaya MD Unavailable + [phone] Brigitte Foley MD Primary Care Provider [phone] Reason for Visit * Reason Onset Date Comments Medical Records Request 07/26/2024 Encounter Details Date Type Department Care Team (Late st Contact Info) Description 07/26/2024 Telephone [facility] Medical Group at [address] [address] Brigitte Foley MD [address] [place], [place] [address] [place] [address] Medical Records Request Social History Tobacco Use Types Packs/Day Years Used Date Smoking Tobacco: Former Cigarettes Q uit: 1990 Smokeless Tobacco: Never Alcohol Use Standard Drinks/Week Comments Yes 0 [...] file Not on file Not on file documented as of this encounter Miscellaneous Notes * Telephone Encounter - Harriett Bob MA - 07/26/2024 2:06 PM CST Records faxed to specialist office NESS LIBRARIAN * Telephone Encounter - Tiara Ocampo MA - 07/26/2024 1:41 PM BUSINESS LIBRARIAN Please see pt's request below for records to be sent to Dr Panchal's office regarding her hyperthyroidism diagnosis. NESS LIBRARIAN * Telephone Encounter - Aydee Alston - 07/26/2024 1:21 PM CST Medical Records Request Request Type: Records Request Practice Will Complete What records are being requested:the medical records that pertains to hyperthyroidism Who will the records be sent to (if being sent to another doctor, list the doctor's name and specialty)? HEIDI Alexander Phone #: [phone] Fax #: [phone] Address: [address] [place], [place] [address] Date Needed: prashant Delivery Method: Fax Fax number to use for return of records: [phone] Additional Comments/Concerns: they need the medical records before they schedule the appointment Does the message need to be routed? Yes-Action Needed NESS LIBRARIAN documented in this encounter Plan of Treatment Not on file documented as of this encounter Goals Goal Patient Goal Type Associated Problems [...] on stairs Contact your local community or [facility] for information on exercise, fall prevention programs, or options for improving home safety. documented as of this encounter Visit Diagnoses Not on filedocumented in this encounter Care Teams Medical Doctor Relationship Specialty Start Date End Date Brigitte Foley MD [address] [facility] [address] [place], [place] [id number] PCP - General Internal Medicine 04/17/23 Chau Anaya MD [address] [facility] [address] [place], [place] [address] Consulting Physician Interventional Cardiology 04/06/22 documented as of this encounter
--- OUTSIDE RECORDS SUMMARY | 2024-08-26 18:51 | XMS_ITS | Encounter Summary ---
Author Organization [facility] Healthcare Address [address] [place] [address] Care Team Providers Care Lot Technician Name Role Phone Chau Anaya MD Unavailable + [phone] Brigitte Foley MD Primary Care Provider [phone] Reason for Visit * Reason Onset Date Comments Back Pain 06/05/2024 Encounter Details Date Type Department Care Team (Late st Contact Info) Description 06/26/2024 Nurse Triage [facility] Medical Group at [address] [address] Brigitte Foley MD [address] [place], [place] [id number] [place] [address] Social History Tobacco Use Types Packs/Day Years [...] points, staff should administer the PHQ-9) 0 04/15/2024 Personal Safety Answer Date Recorded Have you [...] encounter Miscellaneous Notes * Telephone Encounter - Ha Oro CMA - 07/01/2024 10:08 AM CST Noted. ECT ECONOMIST * Telephone Encounter - Harriett Bob MA - 07/01/2024 9:45 AM CST Pt is scheduled already ECT ECONOMIST * Telephone Encounter - Ha Oro CMA - 07/01/2024 9:37 AM CST Can you please schedule? ECT ECONOMIST * Telephone Encounter - Sarah Aguirre RN - 06/26/2024 2:54 PM CST Reason for Disposition MODERATE back pain (e.g., interferes with normal activities) and present > 3 days Protocols used: Back Ztxb-Foztc-MV Pt is an 83 y/o female with a hx of HTN, Afib, Spinal Stenosis and COPD calling with middle back pain x 1 month that is worsening. Pt states she has tingling to her feet. Denies fever, frequent urination, burning and odor. Pt denies that pain radiates. Pt states she takes Gabapentin with no relief.Pt states pain is manageable when she is sitting but worsens when she stands and walks. Pt is concerned about abnormal kidney function tests. Pt declines appt and is requesting to see a dump operator. Please contact pt at [phone]. Care advice given including meds as directed and heat to area. Pt verbalized understanding and willcall with worsening sx's. ECT ECONOMIST * Telephone Encounter - Sarah Aguirre RN - 06/26/2024 2:45 PM CST Regarding: camila back pain ----- Message from Adriana Piña sent at 06/26/2024 2:39 PM PROJECT ECONOMIST ----- Symptom Based Call Chief Complaint(s): severe back pain Duration: month but has gotten worse in the last week What type of symptom(s) is the patient experiencing? Red Flag. Is the patient concerned they are experiencing a medical emergency requiring an ambulance? No Additional Comments: patient says the back pain has gotten so bad that it is crippling. She is finewhen she sits, but as soon as she stands pain is severe. She said she noticed her kidney numbers declining and wanted to know if that could be the cause. Does message need to be routed? Yes-Action Needed ECT ECONOMIST documented in this encounter Plan of Treatment Not on file documented as of this encounter Visit Diagnoses Not on filedocumented in this encounter Care Teams Lot Technician Relationship Specialty Start Date End Date Brigitte Foley MD [address] [facility] [address] [place] [address] PCP - General Internal Medicine 04/17/23 Chau Anaya MD [address] [facility] [address] [place] [address] Consulting Physician Interventional Cardiology 04/06/22 documented as of this encounter
--- OUTSIDE RECORDS SUMMARY | 2024-08-26 18:51 | XMS_ITS | Encounter Summary ---
Author Organization [facility] Healthcare Address [address] [place] [address] Care Team Providers Care Commercial Litigation Paralegal Name Role Phone Chau Anaya MD Unavailable + [phone] Brigitte Foley MD Primary Care Provider [phone] Encounter Details Date Type Department Care Team (Late st Contact Info) Description 08/07/2024 Telephone [facility] Medical Group at [address] [address] Brigitte Foley MD [address] [place], [place] [phone] [place] [address] Social History Tobacco Use Types Packs/Day [...] encounter Miscellaneous Notes * Telephone Encounter - Tiara Ocampo MA - 08/09/2024 1:18 PM ANALYSIS MANAGER Left vm msg for pt to call us back regarding her lab order request below YSIS MANAGER * Telephone Encounter - Tiara Ocampo MA - 08/09/2024 9:07 AM ANALYSIS MANAGER Will reach out to Ms. Cevallos regarding her request YSIS MANAGER documented in this encounter Plan of Treatment Not on file documented as of this encounter Goals Goal Patient Goal Type Associated Problems Recent Progress Patient-Stated? Author CCM Chronic Pain Care Plan Chronic Care Management No Fatemeh Noble, TRUPTI Note: Problem: Chronic Pain Goals: 1. Minimize further functional decline 2. Maximize quality of life 3. Control pain Strategies: - Activity/exercise program recommendation - Conservative stepwise pain medicine strategy with multi-disciplinary approach - Recommend healthy lifestyle strategies and compensatory methods as needed Reduce the likelihood of falling Lifestyle No Fatemeh Noble, TRUPTI Note: Below are four things you can [...] on filedocumented in this encounter Care Teams Commercial Litigation Paralegal Relationship Specialty Start Date End Date Brigitte Foley MD [address] [facility] [address] [place] [id number] PCP - General Internal Medicine 04/17/23 Chau Anaya MD [address] [facility] [address] [place] [address] Consulting Physician Interventional Cardiology 04/06/22 documented as of this encounter
--- OUTSIDE RECORDS SUMMARY | 2024-08-26 18:51 | XMS_ITS | Encounter Summary ---
Author Organization [facility] Healthcare Address [address] [place] [address] Care Team Providers Care Mobile Patrol Officer Name Role Phone Chau Anaya MD Unavailable + [phone] Brigitte Foley MD Primary Care Provider [phone] Reason for Visit * Reason Comments Arm Pain L arm pain that radi ates down L arm, to upper back and neck started yesterday. States she got her flu and covid vaccines 3 weeks ago and was fine and then started these symptoms yesterday Encounter Details Date Type Department Care Team (Late st Contact Info) Description 08/26/2024 4:30 PM FILM CASTING OPERATOR Office Visit [facility] Medical Group Convenient Care at [address] [address] Brandi Bradley NP [address] [place] [address] [address] [place] [address] Left-sided chest pain (Primary Dx); Left arm pain Social History Tobacco Use Types Packs/Day Years [...] on file documented as of this encounter Last Filed Vital Signs Vital Sign Reading Time Taken Comments Blood Pressure 142/60 08/26/2024 4:29 PM FILM CASTING OPERATOR Pulse 86 08/26/2024 4:29 PM FILM CASTING OPERATOR Temperature 36.5 C (97.7 F) 08/26/2024 4:29 PM FILM CASTING OPERATOR Respiratory Rate 24 08/26/2024 4:29 PM FILM CASTING OPERATOR Oxygen Saturation 98% 08/26/2024 4:29 PM FILM CASTING OPERATOR Inhaled Oxygen Concentration - - Weight 116.1 kg (256 lb) 08/26/2024 4:29 PM FILM CASTING OPERATOR Height - - Body Mass Index 43.94 08/02/2024 1:21 PM FILM CASTING OPERATOR documented in this encounter Plan of Treatment [...] documented as of this encounter Visit Diagnoses Diagnosis Left-sided chest pain- Primary Left arm pain Pain in soft tissues of limb documented in this encounter Care Teams Mobile Patrol Officer Relationship Specialty Start Date End Date Brigitte Foley MD [address] [place] [address] PCP - General Internal Medicine 04/17/23 Chau Anaya MD [address] [facility] [address] [place] [id number] Consulting Physician Interventional Cardiology 04/06/22 documented as of this encounter
--- OUTSIDE RECORDS SUMMARY | 2024-08-26 18:51 | XMS_ITS | Encounter Summary ---
Author Organization [facility] Address [address] [place] [address] Care Team Providers Care Tableau Report Developer Name Role Phone Chau Anaya MD Unavailable + [phone] Brigitte Foley MD Primary Care Provider [phone] Reason for Visit * Reason Onset Date Comments Referral Request 08/26/2024 Encounter Details Date Type Department Care Team (Late st Contact Info) Description 08/26/[address] [facility] Primary Care at [facility] - [id number] [id number] Brigitte Foley MD [address] [place] [id number] Referral Request Social History Tobacco Use Types Packs/Day [...] Frequency of Binge Drinking Not on file 02/2 01/2024 PHQ-2 Answer Date Recorded PHQ-2 Total Score [...] encounter Miscellaneous Notes * Telephone Encounter - Cece Reynoso - 08/26/2024 3:46 PM CST Talk with Nancy and advise her that on the [employer] site - Mrs Cevallos does not require an insurance referral TE SENSING SURVEYOR * Telephone Encounter - Faby Henderson - 08/26/2024 3:41 PM CST Call Back Caller???s Concern: Nancy with [facility] calling back, stating patient does need a referral. Call disconnected when LOG HAULER went to confirm number for Call back before warm transferring tooffice. Attempted to call number on referral request, got voicemail at office. Patient currently atoffice. Does message need to be routed? Yes-Action Needed TE SENSING SURVEYOR * Telephone Encounter - Cece Reynoso - 08/26/2024 3:31 PM CST [employer] site - Authorization/Referral Not Required Dr Chen office is aware TE SENSING SURVEYOR * Telephone Encounter - Arleen Beavers - 08/26/2024 3:11 PM CST Referral Provider Name: Dr. Mundo Chen Specialty: podiatry Address: [address] [place] [address] [address] [place] [address], Zip: [place] [address] Diagnosis Code/Symptom/Reason Patient is being seen: L60.0 Date of Appointment: 08/26/24 NPI#: [id number] Tax ID#: [id number] Is insurance in chart up to date? Yes, [employer] Additional Comments: new patient appt Does message need to be routed? Yes-Action Needed TE SENSING SURVEYOR documented in this encounter Plan of Treatment [...] on filedocumented in this encounter Care Teams Tableau Report Developer Relationship Specialty Start Date End Date Brigitte Foley MD [address] [facility] [address] [place] [address] PCP - General Internal Medicine 04/17/23 Chau Anaya MD [address] [address] [place] [id number] Consulting Physician Interventional Cardiology 04/06/22 documented as of this encounter
[2024-08-26 18:55] LABS: Troponin I < 0.012 ng/mL (0.000-0.034)
[2024-08-26 19:01] LABS: INR 1.2; Prothrombin Time 15.4 Seconds (11.1-14.7)
[2024-08-26 19:02] LABS: Partial Thromboplastin Time 20.9 Seconds (22.3-36.8)
--- NOTE | 2024-08-26 20:30 | PC.NURSE ---
pt to furniture repair technician cut this off, i am leaving. Pt ambulatory with steady gait to exit with family member.
--- OUTSIDE RECORDS SUMMARY | 2024-08-26 20:45 | XMS_ITS | Clinical Summary ---
Author Organization [facility] Dotty Garcia Address [address] [place] [address] Care Team Providers Care Toll Gate Tender Name Role Phone Chau Anaya MD Unavailable + [phone] Brigitte Foley MD Primary Care Provider [phone] Allergies Active Allergy Reactions Criticality Noted Date Comments Codeine Stomach upset Low 03/11/2018 TOLERATES MORPHINE 09/07/18 Medications magnesium H-[id number] amide 42 mg (500 mg)- 250 mg [...] 08/21/2023 Assessment & Plan (08/21/2023 2:48 PM ATHLETIC SHOE DESIGNER): Radiographically the patient has fairly advanced arthritis [...] tendon Assessment & Plan (08/21/2023 2:47 PM ATHLETIC SHOE DESIGNER): Patient likely has chronic posterior tibial tendon insufficiency and 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 She does have underlying neuropathy would be vulnerable to development of a Charcot joint. She most likely should be seen by a eligibility specialist referral to Dr. Martinez was given. She is wearing poorly made shoes for someone with neuropathy. Peripheral arterial disease 08/21/2023 Assessment & Plan (08/21/2023 2:48 PM ATHLETIC SHOE DESIGNER): Patient likely has significant peripheral arterial disease in her leg. Her diabetes and previous smoking with hypertension likely exacerbate her condition. Would recommend evaluation by a vascular specialist as bypass or stenting may be needed. Constipation 08/15/2023 long-term (current) use of anticoagulants 2022 Dyslipidemia 07/22/2022 [...] 03/26/2021 Assessment & Plan (07/17/2022 10:54 PM ATHLETIC SHOE DESIGNER): Continue Eliquis 5 mg b.i.d. asymptomatic per her report. Continue to monitor. Assessment & Plan (03/16/2022 11:01 PM CDT): Chronic. Rare. Continue current regimen per cardiology. Assessment & Plan (11/11/2021 9:50 AM CDT): Intermittent palpitations continue. Has appointment to see cardiology-Dr. Cosby. She is taking her Eliquis. Assessment & Plan (08/03/2021 6:14 AM ATHLETIC SHOE DESIGNER): Continue to follow-up with Dr. Seaman. Currently taking Eliquis daily. SOB is noted, but unchanged. Assessment & Plan (04/28/2021 6:19 AM CDT): Continue to follow-up with Dr. Seaman. Currently taking Eliquis daily. Asymptomatic currently. BENITEZ on CPAP 01/27/2021 Assessment & Plan (07/17/2022 11:06 PM ATHLETIC SHOE DESIGNER): Still using nightly. Assessment & Plan (04/26/2022 1:55 PM CDT): Has been using device 10-12 hrs with mild interruption for urination. Assessment & Plan (03/16/2022 11:03 PM CDT): Has continued to be adherent to nightly use next. No concerns at present. Assessment & Plan (11/11/2021 9:50 AM CDT): Is using nightly. Doing well. Assessment & Plan (08/03/2021 6:15 AM ATHLETIC SHOE DESIGNER): Doing well on CPAP. Continue to follow-up [...] 01/25/2021 Assessment & Plan (07/17/2022 10:55 PM ATHLETIC SHOE DESIGNER): Chronic. Stable. Continue Lyrica 25mg daily. Assessment [...] 11/10/2020 Assessment & Plan (07/17/2022 10:57 PM ATHLETIC SHOE DESIGNER): Counseled on dietary recommendations regarding management. Overall is doing well. BG is 105 today. Assessment & Plan (03/16/2022 11:04 PM CDT): Labs reviewed today. Overall doing well with changes to dietary intake. Assessment & Plan (11/11/2021 9:52 AM CDT): Chronic. Labs reviewed. Continue to monitor diet. Chair exercise encouraged. Assessment & Plan (08/03/2021 6:16 AM ATHLETIC SHOE DESIGNER): Counseled on monitoring carbs-continues to struggle. 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 Last A1C 5.4 (05/2021). Assessment & Plan (04/28/2021 6:21 AM CDT): Labs today. Counseled on monitoring carbs. Assessment & Plan (01/27/2021 6:55 AM CDT): Improved from last. Labs reviewed with patient. Continue current. Mild episode of recurrent major depressive disor marilyn 09/17/2019 Assessment & Plan (07/17/2022 11:00 PM ATHLETIC SHOE DESIGNER): Improved. Overall feels that it is controlled. [...] limiting. Assessment & Plan (08/07/2020 9:15 AM ATHLETIC SHOE DESIGNER): Improved. Has adjusted to COVID Assessment & Plan (01/16/2020 2:30 PM CDT): Con't cymbalta. Needs socialization-but COVID is an issue. Con't to talk with family. Assessment & Plan (10/07/2019 8:02 PM CDT): Stable. Not like previously. CV19 in community-is staying in-missing socialization. Talking with family. Con't cymbalta. Call if worsening. 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 Still has some issues with back pain. Con't to follow-up with Dr. Lerma. Assessment & Plan (04/27/2022 12:28 PM CDT): Has con't to follow-up to with Dr. Lerma. Notes significant deconditioning in lower extremities. Has TapTrack video at home. Aware to use. Assessment & Plan (11/11/2021 9:55 AM CDT): Continue to follow-up with Rheumatology-Dr. Lerma. Off of arava. Is on renvoq with good response. Needs exercise to assist with maintaining mobility. Assessment & Plan (08/03/2021 6:18 AM ATHLETIC SHOE DESIGNER): ROM and arthralgias are improved on remvoq [...] assist. Assessment & Plan (08/07/2020 10:26 AM ATHLETIC SHOE DESIGNER): Con't to f/u with Dr. Lerma. Some concerns for increased OA in Low back. Celebrex to assist. Counseled physical activity will help with this also. Assessment & Plan (10/07/2019 7:41 PM CDT): Improving, but not completely. Still working with Dr. Hernandez. Some improvement with arava. Assessment & Plan (07/26/2019 10:08 PM ATHLETIC SHOE DESIGNER): Con't f/u with Dr. Lerma. On Arava x 2 days. No improvement as of yet. Aware of immune suppression. Morbid obesity with BMI of 45.0-49.9, adult ([facility]) 01/02/2019 Assessment & Plan (08/21/2023 2:49 PM ATHLETIC SHOE DESIGNER): Patient's current weight provides with a BMI over 48. Would highly encourage the patient work on a graduated low-impact exercise program in conjunction with proper dieting. This will reduce stress on her knee and may improve the natural longevity of the joint Assessment & Plan (08/03/2021 6:16 AM ATHLETIC SHOE DESIGNER): Bmi-46.5. BMI Follow-up includes: nutrition counseling. Assessment [...] activity. Assessment & Plan (08/09/2020 7:57 PM ATHLETIC SHOE DESIGNER): Worsening-but is not able to leave her [...] 10/02/2018 Assessment & Plan (07/26/2019 10:04 PM ATHLETIC SHOE DESIGNER): Stable. Unchanged. Counseled on need for wt [...] multivitamin. Assessment & Plan (08/09/2020 7:52 PM ATHLETIC SHOE DESIGNER): Labs today. Continue current. Essential hypertension 05/16/2018 Assessment & Plan (07/17/2022 10:59 PM ATHLETIC SHOE DESIGNER): Controlled. Continue current regimen losartan 50, amlodipine 5 mg. Assessment & Plan (03/16/2022 11:05 PM CDT): Insert chronic. Controlled. Continue amlodipine as well as furosemide per Cardiology. Assessment & Plan (11/11/2021 9:59 AM CDT): Did not take WEB OPERATIONS SPECIALIST. Continue current regimen lasix, losartan, amlodipine. Call with home readings. Assessment & Plan (08/03/2021 6:17 AM ATHLETIC SHOE DESIGNER): Marginal control. Was seen by cardiology without [...] regimen. Assessment & Plan (08/09/2020 7:52 PM ATHLETIC SHOE DESIGNER): Elevated-but has not taken medications today. Aware [...] cardiac eval. Declined. Wants to go to [facility]. Assessment & Plan (10/07/2019 8:38 PM CDT): Controlled. Continue current regimen. Normal rate and rhythm with repeat. Suspect oximeter issue. No pauses. Just CP. Lasting more than 1/2 hr at a time. Assessment & Plan (07/26/2019 10:06 PM ATHLETIC SHOE DESIGNER): Controlled. Continue current regimen. Assessment & Plan (04/11/2019 10:55 AM CDT): Controlled. Continue current regimen. Counseled on low sodium and to participate in 150 min of activity/wk. Assessment & Plan (12/26/2018 8:56 PM CDT): Controlled. Continue current regimen. Assessment & Plan (10/14/2018 7:38 PM CDT): Controlled. Continue current regimen. Hypothyroidism 05/16/2018 Assessment & Plan (07/17/2022 10:59 PM ATHLETIC SHOE DESIGNER): Controlled. Continue current regimen of levothyroxine 125 [...] rotating. Assessment & Plan (08/07/2020 10:25 AM ATHLETIC SHOE DESIGNER): New tremor. Labs as ordered.Pt aware of possible cause. Assessment & Plan (01/16/2020 2:30 PM CDT): Labs today. Continue current. Constipation and edema are both reported. MDD is chronic. Assessment & Plan (07/26/2019 10:07 PM ATHLETIC SHOE DESIGNER): Labs today. Continue current. ? Wt gain-although [...] normal. Labs ordered. ? Change in levothyroxine technical maintenance specialist causing change. Assessment & Plan (10/02/2018 12:17 [...] disease) Assessment & Plan (07/17/2022 10:58 PM ATHLETIC SHOE DESIGNER): Controlled. Continue current regimen of PRN albuterol and regular use of symbicort. Assessment & Plan (03/16/2022 11:05 PM CDT): Stable. Continue current p.r.n. albuterol as well as daily Symbicort. Assessment & Plan (11/11/2021 9:56 AM CDT): Chronic. Stable. Continue current regimen-symbicort, albuterol prn. Assessment & Plan (08/03/2021 6:17 AM ATHLETIC SHOE DESIGNER): Mild changes. Advised on which medication is rescue and which is rescue-had reversed. Continue current. Albuterol p.r.n. as well as Symbicort. Assessment & Plan (04/28/2021 6:25 AM CDT): Stable. Continue current. Albuterol p.r.n. as well as Symbicort. Assessment & Plan (10/31/2020 4:21 PM CDT): Stable when in doors. Con't current regimen. Assessment & Plan (08/09/2020 7:54 PM ATHLETIC SHOE DESIGNER): Moderately controlled. Would like to see pulmonology [...] both. Assessment & Plan (07/26/2019 10:06 PM ATHLETIC SHOE DESIGNER): Mild wheeze today. Start steroids. Counseled on [...] monitor. Assessment & Plan (08/07/2020 10:25 AM ATHLETIC SHOE DESIGNER): Increase gabapentin to 1 tab po daily, and 2 tabs po hs. See if improvement, avoid BB-bradycardia w/ use. Hx of hypothyroidism-also possible cause. Consider topamax. Pruritus 08/07/2020 04/28/2021 Abnormal US (ultrasound) of abdomen 03/30/2020 08/07/2020 Benign neoplasm of rectum and anal canal 03/30/2020 08/07/2020 Overview (03/30/2020): Added automatically from request for surgery [id number] Abdominal pain 03/30/2020 08/07/2020 Overview (03/30/2020): Added automatically from request for surgery [id number] Bronchitis, simple, chronic 10/08/2019 11/24/2022 Assessment & [...] monitor. Assessment & Plan (08/07/2020 9:14 AM ATHLETIC SHOE DESIGNER): With increased sedentary activity-improved. No concerns unless [...] monitor. Assessment & Plan (08/09/2020 7:56 PM ATHLETIC SHOE DESIGNER): Improved. Feels that it is better since [...] 11:00 AM CDT): Improved since moving to [place]. Has more social and family support. Housing [...] Department Care Team Description 08/26/2024 4:30 PM ATHLETIC SHOE DESIGNER Office Visit [facility] at [address] [phone] Brandi Bradley NP Left-sided chest pain (Primary Dx); Left arm pain 08/26/2024 Telephone [facility] - [address] [place] [phone] Brigitte Foley MD Referral Request 08/22/2024 Orders Only [facility] - [address] [place] [phone] Brigitte Foley MD Abnormal mammogram of right breast (Primary Dx) 08/20/2024 1:57 PM ATHLETIC SHOE DESIGNER - 08/20/2024 11:59 PM ATHLETIC SHOE DESIGNER Hospital Encounter [facility] [address] [place] [phone] Screening mammogram, encounter for Discharge Disposition: Discharge to home or self care 08/07/2024 Telephone [facility] at [address] [phone] Brigitte Foley MD 08/02/2024 1:12 PM ATHLETIC SHOE DESIGNER - 08/02/2024 11:59 PM ATHLETIC SHOE DESIGNER Hospital Encounter [facility] [address] [address], [address] [place] [address] Fredy Lozada MD Spinal stenosis of lumbar region with neurogenic claudication (Primary Dx) Discharge Disposition: Discharge to home or self care 08/02/2024 Telephone [facility] at [address], [address] [place] [address] Fredy Lozada MD Anticoagulation 08/02/2024 Telephone [facility] at [address] [place] [phone] Brigitte Foley MD Medical Question/Miscellaneous 07/26/2024 Telephone [facility] at [address] [place] [phone] Brigitte Foley MD Medical Records Request 07/17/2024 Telephone [facility] at [address] [place] [phone] Brigitte Foley MD Additional Services Or Orders; Medical Question/Miscellaneous 07/11/2024 Orders Only [facility] at [address] [place] [phone] Brigitte Foley MD 07/11/2024 Telephone [facility] at [address] [phone] Brigitte Foley MD 2024 Telephone [facility] at [address], [address] [place] [phone] Fredy Lozada MD [facility] 07/04/2024 Telephone [facility] at [address], [address] [place] [phone] Katia Sneed RN PMC Intake Assessment 07/02/2024 Telephone [facility] at [address] [place] [phone] Brigitte Foley MD Medical Question/Miscellaneous 07/01/2024 10:30 AM ATHLETIC SHOE DESIGNER Office Visit [facility] at [address] [phone] Brigitte Foley MD Acquired hypothyroidism (Primary Dx); Stage 3a chronic kidney disease (HCC); Spinal stenosis of lumbar region with neurogenic claudication; Screening for viral disease; PAF (paroxysmal atrial fibrillation) (CMS/HCC) (HCC); Essential hypertension; Morbid obesity with BMI of 45.0-49.9, adult (HCC); Mild episode of recurrent major depressive disorder (HCC) 06/28/2024 Telephone [facility] at [address] [phone] Brigitte Foley MD Referral Request; Recommendation Request 06/26/2024 Nurse Triage [facility] at [address] [phone] Brigitte Foley MD 06/26/2024 Telephone [facility] at [address] [phone] Brigitte Foley MD Referral Request 06/21/2024 Telephone [facility] at [address] [phone] Brigitte Foley MD Call Back; Medical Question/Miscellaneous [...] SARS-CoV-2 Monovalen t Vaccination (12+ YRS) 05/11/2021,09/30/2020,09/02/2020 [employer] Sars-Cov-2 Bivalent V accination (12+ YRS) 05/01/2022 [...] d anal canal 03/30/2020 Added automatically from [facility] for surgery [id number] Olecranon bursitis, right elbow 04/26/2019 Breast lump [...] Comments Blood Pressure 142/60 08/26/2024 4:29 PM ATHLETIC SHOE DESIGNER Pulse 86 08/26/2024 4:29 PM ATHLETIC SHOE DESIGNER Temperature 36.5 C (97.7 F) 08/26/2024 4:29 PM ATHLETIC SHOE DESIGNER Respiratory Rate 24 08/26/2024 4:29 PM ATHLETIC SHOE DESIGNER Oxygen Saturation 98% 08/26/2024 4:29 PM ATHLETIC SHOE DESIGNER Inhaled Oxygen Concentration - - Weight 116.1 kg (256 lb) 08/26/2024 4:29 PM ATHLETIC SHOE DESIGNER Height 162.6 cm (5' 4 ) 08/02/2024 1:21 PM ATHLETIC SHOE DESIGNER Body Mass Index 43.94 08/02/2024 1:21 PM ATHLETIC SHOE DESIGNER Plan of Treatment Health Maintenance Due Date [...] Read Routine (OP Routine) 08/20/2024 2:35 PM ATHLETIC SHOE DESIGNER Screening mammogram, encounter for TSH+FREE T4 Routine 07/11/2024 12:40 PM ATHLETIC SHOE DESIGNER HEPATITIS B CORE ANTIBODY, TOTAL Routine 07/11/2024 12:40 PM ATHLETIC SHOE DESIGNER HEPATITIS B SURFACE ANTIGEN Routine 07/11/2024 12:40 PM ATHLETIC SHOE DESIGNER HEPATITIS B SURFACE ANTIBODY (IMMUNE STATUS) Routine 07/11/2024 12:40 PM ATHLETIC SHOE DESIGNER EGFR Routine 04/23/2024 3:09 PM CDT Essential hypertension HEMOGLOBIN A1C Routine 04/23/2024 3:09 PM CDT Prediabetes LIPID PANEL Routine 04/23/2024 3:09 PM CDT Dyslipidemia ALBUMIN CREATININE RATIO, URINE Routine 04/23/2024 3:09 PM CDT Prediabetes DEXA AXIAL SKELETON BONE DENSITY 1 OR MORE SITES Schedule Routine, Read Routine (OP Routine) 07/11/2023 4:18 PM ATHLETIC SHOE DESIGNER Asymptomatic menopausal state DIABETES EYE EXAM Routine 05/14/2017 from Last 3 Months or Most Recently Relevant to Health Maintenance Results * (ABNORMAL) Screening Mammogram Bilateral W Liam (08/20/2024 2:35 PM ATHLETIC SHOE DESIGNER) Anatomical Region Laterality Modality Breast Bilateral Mammography 08/21/2024 12:5 3 PM ATHLETIC SHOE DESIGNER Impressions 08/21/2024 12:53 PM ATHLETIC SHOE DESIGNER There is increased skin and trabecular thickening over the RIGHT breast. FINAL ASSESSMENT: BI-RADS Category 0: Incomplete - Need Additional Imaging Evaluation. RECOMMENDATION: Findings in the right breast require additional evaluation. Diagnostic mammogram and possible ultrasound images of the right breast are recommended at this time. Electronically signed by: Tran Tejeda M.D. Narrative 08/21/2024 12:53 PM ATHLETIC SHOE DESIGNER EXAMINATION: BILATERAL SCREENING MAMMOGRAM COMPARISON: Multiple prior [...] Result * TSH+Free T4 (07/11/2024 12:40 PM ATHLETIC SHOE DESIGNER) TSH 2.340 0.450 - 4.500 uIU/mL [facility] - 01 T4,Free(Direct) 1.73 0.82 - 1.77 ng/dL [facility] - 01 07/11/2024 12:4 0 PM ATHLETIC SHOE DESIGNER 07/11/2024 Narrative [facility] - 07/12/2024 7:36 AM ATHLETIC SHOE DESIGNER Performed at: [address] [place] [id number] Transitional Care Nurse: Faraz Rojas PhD, Phone: [phone] Specimen Comment: A courtesy copy of this report has been sent to [phone] Brigitte Foley MD LAB BLOOD ORDERABLES Final R esult [facility] - 01 * Hepatitis B core antibody, total (07/11/2024 12:40 PM ATHLETIC SHOE DESIGNER) Hep B core IgG/IgM Negative Negative [facility] - 01 07/11/2024 12:4 0 PM ATHLETIC SHOE DESIGNER 07/11/2024 Narrative [facility] - 07/12/2024 7:36 AM ATHLETIC SHOE DESIGNER Performed at: [address] [id number] Transitional Care Nurse: Faraz Rojas PhD, Phone: [phone] Brigitte Foley MD LAB MICROBIOLOGY - GENERAL O RDERABLES Final Result Performing Organization Address [facility] de Phone Number [facility] * Hepatitis B surface antibody (immune status) (07/11/2024 12:40 PM ATHLETIC SHOE DESIGNER) HBsAb (immune status) Non Reactive [facility] - Comment: Non Reactive: Not immune to HBV infection. Equivocal: Unable to determine if anti-HBs is present at levels consistent with immunity. Reactive: Anti-HBs concentration detected at greater than 10 mIU/mL. Individual is considered to be immune to infection with HBV. 07/11/2024 12:4 0 PM ATHLETIC SHOE DESIGNER 07/11/2024 Narrative [facility] - 07/12/2024 7:36 AM ATHLETIC SHOE DESIGNER Performed at: [address] [id number] Transitional Care Nurse: Faraz Rojas PhD, Phone: [phone] Brigitte Foley MD LAB MICROBIOLOGY - GENERAL O RDERABLES Final Result Performing Organization Address [facility] de Phone Number [facility] - * Hepatitis B Surface Antigen (07/11/2024 12:40 PM ATHLETIC SHOE DESIGNER) HepBsAg Negative Negative [facility] - 07/11/2024 12:4 0 PM ATHLETIC SHOE DESIGNER 07/11/2024 Narrative [facility] - 07/12/2024 7:36 AM ATHLETIC SHOE DESIGNER Performed at: [address] [place] [id number] Transitional Care Nurse: Faraz Rojas PhD, Phone: [phone] Brigitte Foley MD LAB MICROBIOLOGY - GENERAL [...] ORDERABLES Final R esult Performing Organization Address City/[facility]/ZIP Co de Phone Number [facility] [address] Department [place] [address] * Albumin Creatinine Ratio, Urine (04/23/2024 3:09 [...] Foley MD LAB URINE ORDERABLES [facility] Performing Organization Address [facility] Co de Phone Number [facility] [address] Department [place] [address] * Hemoglobin A1c (04/23/2024 3:09 PM CDT) Hgb A1C 5.6 4.0 - 5.6 % Estimated Average Glucose 114 mg/dL [facility] Comment: The ADA recommends reporting an estimated Average Glucose (eAG) with all Hemoglobin A1c results using the equation derived from a study of 507 normal and diabetic adults. Minority populations were underrepresented and children were not included. (Diabetes Care 31:9085-5647, 2008). The eAG is not equivalent to a fasting glucose. Blood 04/23/2024 3:09 PM CDT 04/24/2024 10:11 AM CDT Brigitte Foley MD LAB BLOOD ORDERABLES Final R julienult Performing Organization Address [facility] Co de Phone Number [facility] [address] Department [place] [address] * Lipid panel (04/23/2024 3:09 PM CDT) [...] LAB [place] [address] [address] Department [place] [address] * Dexa Axial Skeleton Bone Density 1 or 2 Site (07/11/2023 4:18 PM ATHLETIC SHOE DESIGNER) Anatomical Region Laterality Modality Body N/A Other 07/11/2023 4:24 PM ATHLETIC SHOE DESIGNER Impressions 07/11/2023 4:24 PM ATHLETIC SHOE DESIGNER Osteoporosis. Consider follow-up bone densitometry evaluation in 1 to 2 years. Electronically signed by: Gómez Goetz M.D. Narrative 07/11/2023 4:24 PM ATHLETIC SHOE DESIGNER EXAMINATION: DEXA AXIAL SKELETON BONE DENSITY 1 OR MORE SITES DATE: 07/11/2023 3:30 PM HISTORY: 83 [id number] postmenopausal woman. Screening COMPARISON: 04/21/2021 FINDINGS: The [...] SITES DATE: 07/11/2023 3:30 PM HISTORY: 83 [id number] postmenopausal woman. Screening COMPARISON: 04/21/2021 FINDINGS: The [...] Res ult * DIABETES EYE EXAM (05/14/2017) [facility] Signature Diabetic Eye Exam Normal Historical Provider HEALTH MAINTENANCE Final Result from Last 3 Months or Most Recently Relevant to Health Maintenance Insurance MEDICARE [facility] [employer] MEDICARE HMO [facility] MEDICARE HMO Advance Directives For more information, please contact: [phone] * Full Code (Latest Code Status on [...] Alden Mcbride Health Care Agent Care Teams Toll Gate Tender Relationship Specialty Start Date End Date Brgiitte Foley MD [address] [facility] [address] [place] [address] PCP - General Internal Medicine 04/17/23 Chau Anaya MD [address] [address] Consulting Physician Interventional Cardiology 04/06/22
--- OUTSIDE RECORDS SUMMARY | 2024-08-26 20:45 | XMS_ITS | Referral Summary ---
Author Organization [facility] Dotty Garcia Address [address] [place] [address] Care Team Providers Care Facility Operations Manager Name Role Phone Chau Anaya MD Unavailable + [phone] Brigitte Foley MD Primary Care Provider [phone] Encounters Date Type Department Care Team Description 08/26/2024 4:30 PM INTEGRATION TECHNICIAN Office Visit [facility] Care at [address] [phone] Brandi Bradley, SYD Left-sided chest pain (Primary Dx); Left arm pain 08/26/2024 Telephone [facility] Primary Care at [facility] - [address] [place] [phone] Brigitte Foley MD Referral Request 08/22/2024 Orders Only [facility] Primary Care at [address] [phone] Brigitte Foley MD Abnormal mammogram of right breast (Primary Dx) 08/20/2024 1:57 PM INTEGRATION TECHNICIAN - 08/20/2024 11:59 PM INTEGRATION TECHNICIAN Hospital Encounter Imaging and Radiology [address] [place] [address] Screening mammogram, encounter for Discharge Disposition: Discharge to home or self care 08/07/2024 Telephone [facility] at [address] [place] [phone] Brigitte Foley MD 08/02/2024 Telephone [facility] at [address] [place] [address] Fredy Lozada MD Anticoagulation 08/02/2024 Telephone [facility] at [address] [phone] Brigitte Foley MD Medical Question/Miscellaneous 08/02/2024 1:12 PM INTEGRATION TECHNICIAN - 08/02/2024 11:59 PM INTEGRATION TECHNICIAN Hospital Encounter [facility] at [address], [address] [place] [phone] Fredy Lozada MD Spinal stenosis of lumbar region with neurogenic claudication (Primary Dx) Discharge Disposition: Discharge to home or self care 07/26/2024 Telephone [facility] at [address] [phone] Brigitte Foley MD Medical Records Request 07/17/2024 Telephone [facility] at [address] [phone] Brigitte Foley MD Additional Services Or Orders; Medical Question/Miscellaneous 07/11/2024 Orders Only [facility] at [address] [phone] Brigitte Foley MD 07/11/2024 Telephone [facility] at [address] [place] [phone] Brigitte Foley MD 2024 Telephone [facility] at [address], [address] [place] [phone] Fredy Lozada MD Anticoagulation 07/04/2024 Telephone [facility] at [address], [address] [place] [phone] Katia Sneed RN PMC Intake Assessment 07/02/2024 Telephone [facility] Group at [address] [phone] Brigitte Foley MD Medical Question/Miscellaneous 07/01/2024 10:30 AM INTEGRATION TECHNICIAN Office Visit [facility] Group at [address] [phone] Brigitte Foley MD Acquired hypothyroidism (Primary Dx); Stage 3a chronic kidney disease (HCC); Spinal stenosis of lumbar region with neurogenic claudication; Screening for viral disease; PAF (paroxysmal atrial fibrillation) (CMS/HCC) (HCC); Essential hypertension; Morbid obesity with BMI of 45.0-49.9, adult (HCC); Mild episode of recurrent major depressive disorder (HCC) 06/28/2024 Telephone [facility] Group at [address] [phone] Brigitte Foley MD Referral Request; Recommendation Request 06/26/2024 Nurse Triage [facility] at [address] [phone] Brigitte Foley MD 06/26/2024 Telephone [facility] Group at [address] [phone] Brigitte Foley MD Referral Request 06/21/2024 Telephone [facility] Group at [address] [place] [phone] Brgiitte Foley MD Call Back; Medical Question/Miscellaneous from Last 3 Months Allergies Active Allergy Reactions Criticality Noted Date Comments Codeine Stomach upset Low 03/11/2018 TOLERATES MORPHINE 09/07/18 Medications magnesium A-rxddre-qarjmo amide 42 mg (500 mg)- 250 mg [...] mg tabletIndicatio ns:PAF (paroxysmal atrial fibrillation) (CMS/HCC) ([facility]) TAKE 1 TABLET TWICE DAILY 180 [...] 08/21/2023 Assessment & Plan (08/21/2023 2:48 PM INTEGRATION TECHNICIAN): Radiographically the patient has fairly advanced arthritis [...] tendon Assessment & Plan (08/21/2023 2:47 PM INTEGRATION TECHNICIAN): Patient likely has chronic posterior tibial tendon insufficiency and 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 She does have underlying neuropathy would be vulnerable to development of a Charcot joint. She most likely should be seen by a mass spectrometry specialist referral to Dr. Martinez was given. She is wearing poorly made shoes for someone with neuropathy. Peripheral arterial disease 08/21/2023 Assessment & Plan (08/21/2023 2:48 PM INTEGRATION TECHNICIAN): Patient likely has significant peripheral arterial disease in her leg. Her diabetes and previous smoking with hypertension likely exacerbate her condition. Would recommend evaluation by a vascular specialist as bypass or stenting may be needed. 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 asymptomatic per her report. Continue to monitor. Assessment & Plan (03/16/2022 11:01 PM CDT): Chronic. Rare. Continue current regimen per cardiology. Assessment & Plan (11/11/2021 9:50 AM CDT): Intermittent palpitations continue. Has appointment to see cardiology-Dr. Cosby. She is taking her Eliquis. Assessment & Plan (08/03/2021 6:14 AM INTEGRATION TECHNICIAN): Continue to follow-up with Dr. Seaman. Currently taking Eliquis daily. SOB is noted, but unchanged. Assessment & Plan (04/28/2021 6:19 AM CDT): Continue to follow-up with Dr. Seaman. Currently taking Eliquis daily. Asymptomatic currently. BENITEZ on CPAP 01/27/2021 Assessment & Plan (07/17/2022 11:06 PM INTEGRATION TECHNICIAN): Still using nightly. Assessment & Plan (04/26/2022 1:55 PM CDT): Has been using device 10-12 hrs with mild interruption for urination. Assessment & Plan (03/16/2022 11:03 PM CDT): Has continued to be adherent to nightly use next. No concerns at present. Assessment & Plan (11/11/2021 9:50 AM CDT): Is using nightly. Doing well. Assessment & Plan (08/03/2021 6:15 AM INTEGRATION TECHNICIAN): Doing well on CPAP. Continue to follow-up [...] 01/25/2021 Assessment & Plan (07/17/2022 10:55 PM INTEGRATION TECHNICIAN): Chronic. Stable. Continue Lyrica 25mg daily. Assessment [...] 11/10/2020 Assessment & Plan (07/17/2022 10:57 PM INTEGRATION TECHNICIAN): Counseled on dietary recommendations regarding management. Overall is doing well. BG is 105 today. Assessment & Plan (03/16/2022 11:04 PM CDT): Labs reviewed today. Overall doing well with changes to dietary intake. Assessment & Plan (11/11/2021 9:52 AM CDT): Chronic. Labs reviewed. Continue to monitor diet. Chair exercise encouraged. Assessment & Plan (08/03/2021 6:16 AM INTEGRATION TECHNICIAN): Counseled on monitoring carbs-continues to struggle. Declines grocery deliverer presently. Last A1C 5.4 (05/2021). Assessment & Plan (04/28/2021 6:21 AM CDT): Labs today. Counseled on monitoring carbs. Assessment & Plan (01/27/2021 6:55 AM CDT): Improved from last. Labs reviewed with patient. Continue current. Mild episode of recurrent major depressive disor marilyn 09/17/2019 Assessment & Plan (07/17/2022 11:00 PM INTEGRATION TECHNICIAN): Improved. Overall feels that it is controlled. [...] limiting. Assessment & Plan (08/07/2020 9:15 AM INTEGRATION TECHNICIAN): Improved. Has adjusted to COVID Assessment & Plan (01/16/2020 2:30 PM CDT): Con't cymbalta. Needs socialization-but COVID is an issue. Con't to talk with family. Assessment & Plan (10/07/2019 8:02 PM CDT): Stable. Not like previously. CV19 in community-is staying in-missing socialization. Talking with family. Con't cymbalta. Call if worsening. 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 Still has some issues with back pain. Con't to follow-up with Dr. Lerma. Assessment & Plan (04/27/2022 12:28 PM CDT): Has con't to follow-up to with Dr. Lerma. Notes significant deconditioning in lower extremities. Has SLID video at home. Aware to use. Assessment & Plan (11/11/2021 9:55 AM CDT): Continue to follow-up with Rheumatology-Dr. Lerma. Off of arava. Is on renvoq with good response. Needs exercise to assist with maintaining mobility. Assessment & Plan (08/03/2021 6:18 AM INTEGRATION TECHNICIAN): ROM and arthralgias are improved on remvoq [...] assist. Assessment & Plan (08/07/2020 10:26 AM INTEGRATION TECHNICIAN): Con't to f/u with Dr. Lerma. Some concerns for increased OA in Low back. Celebrex to assist. Counseled physical activity will help with this also. Assessment & Plan (10/07/2019 7:41 PM CDT): Improving, but not completely. Still working with Dr. Hernandez. Some improvement with arava. Assessment & Plan (07/26/2019 10:08 PM INTEGRATION TECHNICIAN): Con't f/u with Dr. Lerma. On Arava x 2 days. No improvement as of yet. Aware of immune suppression. Morbid obesity with BMI of 45.0-49.9, adult ([facility]) 01/02/2019 Assessment & Plan (08/21/2023 2:49 PM INTEGRATION TECHNICIAN): Patient's current weight provides with a BMI over 48. Would highly encourage the patient work on a graduated low-impact exercise program in conjunction with proper dieting. This will reduce stress on her knee and may improve the natural longevity of the joint Assessment & Plan (08/03/2021 6:16 AM INTEGRATION TECHNICIAN): Bmi-46.5. BMI Follow-up includes: nutrition counseling. Assessment [...] activity. Assessment & Plan (08/09/2020 7:57 PM INTEGRATION TECHNICIAN): Worsening-but is not able to leave her [...] pressure, constipation, diabetes, diverticulosis, some cancers. (Source: [employer]) Gastroesophageal reflux disease 01/02/2019 Assessment & Plan [...] 10/02/2018 Assessment & Plan (07/26/2019 10:04 PM INTEGRATION TECHNICIAN): Stable. Unchanged. Counseled on need for wt [...] multivitamin. Assessment & Plan (08/09/2020 7:52 PM INTEGRATION TECHNICIAN): Labs today. Continue current. Essential hypertension 05/16/2018 Assessment & Plan (07/17/2022 10:59 PM INTEGRATION TECHNICIAN): Controlled. Continue current regimen losartan 50, amlodipine 5 mg. Assessment & Plan (03/16/2022 11:05 PM CDT): Insert chronic. Controlled. Continue amlodipine as well as furosemide per Cardiology. 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 Continue current regimen lasix, losartan, amlodipine. Call with home readings. Assessment & Plan (08/03/2021 6:17 AM INTEGRATION TECHNICIAN): Marginal control. Was seen by cardiology without [...] regimen. Assessment & Plan (08/09/2020 7:52 PM INTEGRATION TECHNICIAN): Elevated-but has not taken medications today. Aware [...] cardiac eval. Declined. Wants to go to [facility]. Assessment & Plan (10/07/2019 8:38 PM CDT): Controlled. Continue current regimen. Normal rate and rhythm with repeat. Suspect oximeter issue. No pauses. Just CP. Lasting more than 1/2 hr at a time. Assessment & Plan (07/26/2019 10:06 PM INTEGRATION TECHNICIAN): Controlled. Continue current regimen. Assessment & Plan (04/11/2019 10:55 AM CDT): Controlled. Continue current regimen. Counseled on low sodium and to participate in 150 min of activity/wk. Assessment & Plan (12/26/2018 8:56 PM CDT): Controlled. Continue current regimen. Assessment & Plan (10/14/2018 7:38 PM CDT): Controlled. Continue current regimen. Hypothyroidism 05/16/2018 Assessment & Plan (07/17/2022 10:59 PM INTEGRATION TECHNICIAN): Controlled. Continue current regimen of levothyroxine 125 [...] rotating. Assessment & Plan (08/07/2020 10:25 AM INTEGRATION TECHNICIAN): New tremor. Labs as ordered.Pt aware of possible cause. Assessment & Plan (01/16/2020 2:30 PM CDT): Labs today. Continue current. Constipation and edema are both reported. MDD is chronic. Assessment & Plan (07/26/2019 10:07 PM INTEGRATION TECHNICIAN): Labs today. Continue current. ? Wt gain-although [...] normal. Labs ordered. ? 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 Assessment & Plan (10/02/2018 12:17 [...] disease) Assessment & Plan (07/17/2022 10:58 PM INTEGRATION TECHNICIAN): Controlled. Continue current regimen of PRN albuterol and regular use of symbicort. Assessment & Plan (03/16/2022 11:05 PM CDT): Stable. Continue current p.r.n. albuterol as well as daily Symbicort. Assessment & Plan (11/11/2021 9:56 AM CDT): Chronic. Stable. Continue current regimen-symbicort, albuterol prn. Assessment & Plan (08/03/2021 6:17 AM INTEGRATION TECHNICIAN): Mild changes. Advised on which medication is rescue and which is rescue-had reversed. Continue current. Albuterol p.r.n. as well as Symbicort. Assessment & Plan (04/28/2021 6:25 AM CDT): Stable. Continue current. Albuterol p.r.n. as well as Symbicort. Assessment & Plan (10/31/2020 4:21 PM CDT): Stable when in doors. Con't current regimen. Assessment & Plan (08/09/2020 7:54 PM INTEGRATION TECHNICIAN): Moderately controlled. Would like to see pulmonology [...] both. Assessment & Plan (07/26/2019 10:06 PM INTEGRATION TECHNICIAN): Mild wheeze today. Start steroids. Counseled on [...] monitor. Assessment & Plan (08/07/2020 10:25 AM INTEGRATION TECHNICIAN): Increase gabapentin to 1 tab po daily, and 2 tabs po hs. See if improvement, avoid BB-bradycardia w/ use. Hx of hypothyroidism-also possible cause. Consider topamax. Pruritus 08/07/2020 04/28/2021 Abnormal US (ultrasound) of abdomen 03/30/2020 08/07/2020 Benign neoplasm of rectum and anal canal 03/30/2020 08/07/2020 Overview (03/30/2020): Added automatically from request for surgery [id number] Abdominal pain 03/30/2020 08/07/2020 Overview (03/30/2020): Added automatically from request for surgery [id number] Bronchitis, simple, chronic 10/08/2019 11/24/2022 Assessment & [...] monitor. Assessment & Plan (08/07/2020 9:14 AM INTEGRATION TECHNICIAN): With increased sedentary activity-improved. No concerns unless [...] monitor. Assessment & Plan (08/09/2020 7:56 PM INTEGRATION TECHNICIAN): Improved. Feels that it is better since [...] 11:00 AM CDT): Improved since moving to [place]. Has more social and family support. Housing [...] SARS-CoV-2 Monovalen t Vaccination (12+ YRS) 05/11/2021,09/30/2020,09/02/2020 Yostro Sars-Cov-2 Bivalent V accination (12+ YRS) 05/01/2022 [...] Comments Blood Pressure 142/60 08/26/2024 4:29 PM INTEGRATION TECHNICIAN Pulse 86 08/26/2024 4:29 PM INTEGRATION TECHNICIAN Temperature 36.5 C (97.7 F) 08/26/2024 4:29 PM INTEGRATION TECHNICIAN Respiratory Rate 24 08/26/2024 4:29 PM INTEGRATION TECHNICIAN Oxygen Saturation 98% 08/26/2024 4:29 PM INTEGRATION TECHNICIAN Inhaled Oxygen Concentration - - Weight 116.1 kg (256 lb) 08/26/2024 4:29 PM INTEGRATION TECHNICIAN Height 162.6 cm (5' 4 ) 08/02/2024 1:21 PM INTEGRATION TECHNICIAN Body Mass Index 43.94 08/02/2024 1:21 PM INTEGRATION TECHNICIAN Plan of Treatment Not on file Goals [...] on stairs Contact your local community or community [facility] for information on exercise, fall prevention programs, or options for improving home safety. Procedures Procedure Name Priority Date/Time Associated Diagnosis Comments SCREENING MAMMOGRAM BILATERAL W LIAM Schedule Routine, Read Routine (OP Routine) 08/20/2024 2:35 PM INTEGRATION TECHNICIAN Screening mammogram, encounter for TSH+FREE T4 Routine 07/11/2024 12:40 PM INTEGRATION TECHNICIAN HEPATITIS B CORE ANTIBODY, TOTAL Routine 07/11/2024 12:40 PM INTEGRATION TECHNICIAN HEPATITIS B SURFACE ANTIGEN Routine 07/11/2024 12:40 PM INTEGRATION TECHNICIAN HEPATITIS B SURFACE ANTIBODY (IMMUNE STATUS) Routine 07/11/2024 12:40 PM INTEGRATION TECHNICIAN EGFR Routine 04/23/2024 3:09 PM CDT Essential hypertension HEMOGLOBIN A1C Routine 04/23/2024 3:09 PM CDT Prediabetes LIPID PANEL Routine 04/23/2024 3:09 PM CDT Dyslipidemia ALBUMIN CREATININE RATIO, URINE Routine 04/23/2024 3:09 PM CDT Prediabetes DEXA AXIAL SKELETON BONE DENSITY 1 OR MORE SITES Schedule Routine, Read Routine (OP Routine) 07/11/2023 4:18 PM INTEGRATION TECHNICIAN Asymptomatic menopausal state DIABETES EYE EXAM Routine 05/14/2017 from Last 3 Months or Most Recently Relevant to Health Maintenance Results * (ABNORMAL) Screening Mammogram Bilateral W Liam (08/20/2024 2:35 PM INTEGRATION TECHNICIAN) Anatomical Region Laterality Modality Breast Bilateral Mammography 08/21/2024 12:5 3 PM INTEGRATION TECHNICIAN Impressions 08/21/2024 12:53 PM INTEGRATION TECHNICIAN There is increased skin and trabecular thickening over the RIGHT breast. FINAL ASSESSMENT: BI-RADS Category 0: Incomplete - Need Additional Imaging Evaluation. RECOMMENDATION: Findings in the right breast require additional evaluation. Diagnostic mammogram and possible ultrasound images of the right breast are recommended at this time. Electronically signed by: Tarn Tejeda M.D. Narrative 08/21/2024 12:53 PM INTEGRATION TECHNICIAN EXAMINATION: BILATERAL SCREENING MAMMOGRAM COMPARISON: Multiple prior [...] Result * TSH+Free T4 (07/11/2024 12:40 PM INTEGRATION TECHNICIAN) TSH 2.340 0.450 - 4.500 uIU/mL [facility] - 01 T4,Free(Direct) 1.73 0.82 - 1.77 ng/dL [facility] - 01 07/11/2024 12:4 0 PM INTEGRATION TECHNICIAN 07/11/2024 Narrative [facility] - 07/12/2024 7:36 AM INTEGRATION TECHNICIAN Performed at: [address] [place] [id number] Second Hand: Faraz Rojas PhD, Phone: [phone] Specimen Comment: A courtesy copy of this report has been sent to [phone] Brigitte Foley MD LAB BLOOD ORDERABLES Final R esult Performing Organization Address City/[facility]/ZIP Co de Phone Number [facility] - * Hepatitis B core antibody, total (07/11/2024 12:40 PM INTEGRATION TECHNICIAN) Hep B core IgG/IgM Negative Negative [facility] - 07/11/2024 12:4 0 PM INTEGRATION TECHNICIAN 07/11/2024 Narrative [facility] - 07/12/2024 7:36 AM INTEGRATION TECHNICIAN Performed at: [address] [place] [id number] Second Hand: Faraz Rojas PhD, Phone: [phone] Brigitte Foley MD LAB MICROBIOLOGY - GENERAL O RDERABLES Final Result Performing Organization Address City/[facility] Co de Phone Number [facility] * Hepatitis B surface antibody (immune status) (07/11/2024 12:40 PM INTEGRATION TECHNICIAN) HBsAb (immune status) Non Reactive [facility] - 01 Comment: Non Reactive: Not immune to HBV infection. Equivocal: Unable to determine if anti-HBs is present at levels consistent with immunity. Reactive: Anti-HBs concentration detected at greater than 10 mIU/mL. Individual is considered to be immune to infection with HBV. 07/11/2024 12:4 0 PM INTEGRATION TECHNICIAN 07/11/2024 Narrative [facility] - 07/12/2024 7:36 AM INTEGRATION TECHNICIAN Performed at: [facility] [id number] Second Hand: Faraz Rojas PhD, Phone: [phone] Brigitte Foley MD LAB MICROBIOLOGY - GENERAL O RDERABLES Final Result Performing Organization Address City/[facility]/ZIP Co de Phone Number [facility] - * Hepatitis B Surface Antigen (07/11/2024 12:40 PM INTEGRATION TECHNICIAN) [facility] HepBsAg Negative Negative [facility] - 01 07/11/2024 12:4 0 PM INTEGRATION TECHNICIAN 07/11/2024 Narrative [facility] - 07/12/2024 7:36 AM INTEGRATION TECHNICIAN Performed at: [address] [place] [id number] Second Hand: Faraz Rojas PhD, Phone: [phone] Brigitte Foley MD LAB MICROBIOLOGY - GENERAL O RDERABLES Final Result Performing Organization Address City/[facility]/ZIP Co de Phone Number [facility] - * (ABNORMAL) eGFR (04/23/2024 3:09 PM CDT) [facility] eGFR 33(L) >=60 mL/min/1. 73 m2 Comment: [...] Foley MD LAB BLOOD ORDERABLES Final R [facility] Performing Organization Address [facility] de Phone Number [facility] [address] [address] [facility] [employer] [address] * Albumin Creatinine Ratio, Urine (04/23/2024 3:09 PM CDT) Albumin Ur <12.0 mg/L Comment: Interpretive Data No reference range established. Current interpretive data was last revised 2018. Creatinine Ur 109.1 mg/dL [facility] Comment: Interpretive Data No reference range established. Current interpretive data was last revised 2018. Albumin Creatinine Ratio, Ur <11 1 - 29 mg/g [facility] Urine 04/23/2024 3:09 PM CDT 04/24/2024 10:11 AM CDT Result [facility] Brigitte Foley MD LAB URINE ORDERABLES Final R [facility] Performing Organization Address [facility] de Phone Number [facility] [address] [address] [facility] [employer] [address] * Hemoglobin A1c (04/23/2024 3:09 PM CDT) Hgb A1C 5.6 4.0 - 5.6 % Estimated Average Glucose 114 mg/dL [facility] Comment: The ADA recommends reporting an estimated Average Glucose (eAG) with all Hemoglobin A1c results using the equation derived from a study of 507 normal and diabetic adults. Minority populations were underrepresented and children were not included. (Diabetes Care 31:4595-5992, 2008). The eAG is not equivalent to a fasting glucose. Blood 04/23/2024 3:09 PM CDT 04/24/2024 10:11 AM CDT us Brigitte Foley MD LAB [place] [id number] [facility] [place] [address] * Lipid panel (04/23/2024 3:09 [...] [place] [id number] [address] Department [place] [address] * Dexa Axial Skeleton Bone Density 1 or 2 Site (07/11/2023 4:18 PM INTEGRATION TECHNICIAN) Anatomical Region Laterality Modality Body N/A Other 07/11/2023 4:24 PM INTEGRATION TECHNICIAN Impressions 07/11/2023 4:24 PM INTEGRATION TECHNICIAN Osteoporosis. Consider follow-up bone densitometry evaluation in 1 to 2 years. Electronically signed by: Gómez Goetz M.D. Narrative 07/11/2023 4:24 PM INTEGRATION TECHNICIAN EXAMINATION: DEXA AXIAL SKELETON BONE DENSITY 1 OR MORE SITES DATE: 07/11/2023 3:30 PM HISTORY: 83 [id number] postmenopausal woman. Screening COMPARISON: 04/21/2021 FINDINGS: The [...] SITES DATE: 07/11/2023 3:30 PM HISTORY: 83 [id number] postmenopausal woman. Screening COMPARISON: 04/21/2021 FINDINGS: The [...] ult * HM DIABETES EYE EXAM (05/14/2017) [facility] Diabetic Eye Exam Normal us Historical Provider MD HEALTH MAINTENANCE Final Result from Last 3 Months or Most Recently Relevant to Health Maintenance Insurance MEDICARE [facility] MEDICARE O [facility] MEDICARE HMO Advance Directives For more information, please contact: [phone] * Full Code (Latest Code Status on [...] Alden Mcbride Health Care Agent Care Teams Facility Operations Manager Relationship Specialty Start Date End Date Brigitte Foley MD [address] [address] PCP - General Internal Medicine 04/17/23 Chau Anaya MD [address] [facility] [address] [place] [address] Consulting Physician Interventional Cardiology 04/06/22
--- OUTSIDE RECORDS SUMMARY | 2024-08-26 20:45 | XMS_ITS | Referral Summary ---
Author Organization [facility] Address [address] [place] [address] Care Team Providers Care Escrow Officer Name Role Phone Haley Lerma MD Unavailable [phone] Brigitte Foley MD Primary Care Provider [phone] Source Comments [facility] Affiliates and Associated Physician Practices is amultiple site organization consisting of ambulatory clinics and hospital sitesin [place], [place], [place] and [place]. This disclosure is being madepursuant to the Care Everywhere program and may not contain all information available regarding this patient. Last updated 18.[facility] Encounters Date Type Department Care Team Description 06/11/2024 2:15 PM SERVICE LINE BUS CLEANER Office Visit [facility] Medical [facility] - Rheumatology [address] [place] [address] Haley Lerma MD Rheumatoid arthritis without rheumatoid [...] fluticasone propionate (FLONASE) 50 MCG/ACT nasal spray [place] 1 (one) spray into the nose at [...] file Gender Identity Female 08/19/2020 8:35 AM SERVICE LINE BUS CLEANER Sexual Orientation Not on file Last Filed Vital Signs Vital Sign Reading Time Taken Comments Blood Pressure 128/80 06/11/2024 2:27 PM SERVICE LINE BUS CLEANER Pulse 91 06/11/2024 2:27 PM SERVICE LINE BUS CLEANER Temperature 36.3 C (97.4 F) 10/06/2022 1:38 PM CDT Respiratory Rate 18 03/11/2018 6:41 PM CDT Oxygen Saturation 97% 06/11/2024 2:27 PM SERVICE LINE BUS CLEANER Inhaled Oxygen Concentration - - Weight 110.7 kg (244 lb) 06/11/2024 2:27 PM SERVICE LINE BUS CLEANER Height 162.6 cm (5' 4 ) 06/11/2024 2:27 PM SERVICE LINE BUS CLEANER Body Mass Index 41.88 06/11/2024 2:27 PM SERVICE LINE BUS CLEANER Plan of Treatment Upcoming Encounters Date Type Department Care Team (Late st Contact Info) Description 10/17/2024 2:30 PM CDT Office Visit [facility] - Rheumatology [address] [place] [address] Gilma Ann, SPECIAL EDUCATION SECRETARY-DIVISION ORDER ANALYST [address] [facility] [address] [place] [address] Procedures Procedure Name Priority Date/Time Associated Diagnosis Comments VITAMIN B12 FOLATE PANEL Routine 06/18/2024 2:47 PM SERVICE LINE BUS CLEANER Rheumatoid arthritis without rheumatoid factor, multiple sites (HCC) Polyarthralgia Chronic radicular pain of lower back High risk medications (not anticoagulants) long-term use Immunosuppressed status (HCC) Fibromyalgia Vitamin D deficiency Osteopenia of multiple sites ERYTHROCYTE SEDIMENTATION RATE Routine 06/18/2024 2:47 PM SERVICE LINE BUS CLEANER Rheumatoid arthritis without rheumatoid factor, multiple sites (HCC) Polyarthralgia Chronic radicular pain of lower back High risk medications (not anticoagulants) long-term use Immunosuppressed status (HCC) Fibromyalgia Vitamin D deficiency Osteopenia of multiple sites C-REACTIVE PROTEIN Routine 06/18/2024 2: 47 PM SERVICE LINE BUS CLEANER Rheumatoid arthritis without rheumatoid factor, multiple sites (HCC) Polyarthralgia Chronic radicular pain of lower back High risk medications (not anticoagulants) long-term use Immunosuppressed status (HCC) Fibromyalgia Vitamin D deficiency Osteopenia of multiple sites COMPREHENSIVE METABOLIC PANEL Routine 06/18/2024 2:47 PM SERVICE LINE BUS CLEANER Rheumatoid arthritis without rheumatoid factor, multiple sites (HCC) Polyarthralgia Chronic radicular pain of lower back High risk medications (not anticoagulants) long-term use Immunosuppressed status (HCC) Fibromyalgia Vitamin D deficiency Osteopenia of multiple sites CBC W AUTO DIFFERENTIAL Routine 06/18/2024 2:47 PM SERVICE LINE BUS CLEANER Rheumatoid arthritis without rheumatoid factor, multiple sites (HCC) Polyarthralgia Chronic radicular pain of lower back High risk medications (not anticoagulants) long-term use Immunosuppressed status (HCC) Fibromyalgia Vitamin D deficiency Osteopenia of multiple sites from Last 3 Months Results * C-REACTIVE PROTEIN (06/18/2024 2:47 PM SERVICE LINE BUS CLEANER) C-Reactive Protein 5 0 - 10 mg/L [facility] INSURANCE BILL Blood BLOOD SPECIMEN / Unknown 06/18/2024 2:47 PM SERVICE LINE BUS CLEANER 06/18/2024 Narrative [facility] INSURANCE BILL - 06/19/2024 1:08 PM SERVICE LINE BUS CLEANER Performed at: [address] [place] [id number] Head Control Clerk: Faraz Rojas PhD, Phone: [phone] Haley Lerma MD LAB - CHEMISTRY ELISE HOLLY [facility] INSURANCE BILL [address] [place] [address] * ERYTHROCYTE SEDIMENTATION RATE (06/18/2024 2:47 PM SERVICE LINE BUS CLEANER) Erythrocyte Sedimentation Rate Westergren 11 0 - 40 mm/hr [facility] INSURANCE BILL Blood BLOOD SPECIMEN / Unknown 06/18/2024 2:47 PM SERVICE LINE BUS CLEANER 06/18/2024 Narrative [facility] INSURANCE BILL - 06/19/2024 11:09 AM SERVICE LINE BUS CLEANER Performed at: [address] [place], [place] [id number] [place] [id number] Head Control Clerk: Faraz Rojas PhD, Phone: [phone] Haley Lerma MD LAB - HEMATOLOGY ORD ERABLES [facility] INSURANCE BILL [address] [place] [address] * (ABNORMAL) CBC WITH DIFFERENTIAL (06/18/2024 2:47 PM SERVICE LINE BUS CLEANER) WBC 7.3 3.4 - 10.8 x10E3/uL [facility] [...] BLOOD SPECIMEN / Unknown 06/18/2024 2:47 PM SERVICE LINE BUS CLEANER 06/18/2024 Narrative [facility] INSURANCE BILL - 06/19/2024 7:10 AM SERVICE LINE BUS CLEANER Performed at: 01 - [facility] [id number] [place], [place] [id number] Head Control Clerk: Faraz Rojas PhD, Phone: [phone] Haley Lerma MD LAB - HEMATOLOGY ORD ERABLES [facility] INSURANCE BILL [address] [place] [address] * (ABNORMAL) COMPREHENSIVE METABOLIC PANEL (06/18/2024 2:47 PM SERVICE LINE BUS CLEANER) Pathologist [facility] Glucose 92 70 - 99 mg/dL [facility] [...] BLOOD SPECIMEN / Unknown 06/18/2024 2:47 PM SERVICE LINE BUS CLEANER 06/18/2024 Narrative [facility] INSURANCE BILL - 06/19/2024 7:10 AM SERVICE LINE BUS CLEANER Performed at: 01 - [facility] [address] [place], [place] [id number] Head Control Clerk: Faraz Rojas PhD, Phone: [phone] Haley Lerma MD LAB - CHEMISTRY EILSE HOLLY [facility] INSURANCE BILL [address] [place] [address] * VITAMIN B12 FOLATE PANEL (06/18/2024 2:47 PM SERVICE LINE BUS CLEANER) [facility] Vitamin B12 466 232 - 1,245 pg/mL [facility] INSURANCE BILL Folate 18.0 >3.0 ng/mL [facility] INSURANCE BILL Comment: A serum folate concentration of less than 3.1 ng/mL is considered to represent clinical deficiency. Blood BLOOD SPECIMEN / Unknown 06/18/2024 2:47 PM SERVICE LINE BUS CLEANER 06/18/2024 Narrative [facility] INSURANCE BILL - 06/19/2024 10:11 AM SERVICE LINE BUS CLEANER Performed at: 01 - [facility] [address] [place], [place] [id number] Head Control Clerk: Faraz Rojas PhD, Phone: [phone] Haley Lerma MD LAB - CHEMISTRY ELISE HOLLY Performing Organization Address City/[facility]/ZIP Co de Phone Number [facility] INSURANCE BILL [address] [place] [address] from Last 3 Months Care Teams Escrow Officer Relationship Specialty Start Date End Date Brigitte Foley MD [address] [facility] [address] [address] PCP - General Internal Medicine 06/08/23 [place] [id number] [phone] Rheumatology 06/11/19
--- OUTSIDE RECORDS SUMMARY | 2024-08-26 20:45 | XMS_ITS | Clinical Summary ---
Author Organization [facility] Facility Address [address] [address] Care Team Providers Care Room Service Waiter/Waitress Name Role Phone Brigitte Foley MD Primary Care Provider [phone] Encounters Date Type Department Care Team Description 08/05/2024 Documentation Only [facility] [address] [address] Rylan Panchal DO from Last [...] Description 11/05/2024 1:45 PM CDT Office Visit [facility] [address] [place] [address] [address] [place] [phone] [place] [address] [place] [address] Health Maintenance Due Date Last Done Comments Pneumococcal Vaccine: 65+ Years Completed 04/25/2017, 04/25/2017, 09/15/2016, Additional history exists Influenza Vaccine Completed 04/15/2024, , 04/19/2022, Additional history exists Hepatitis B Vaccine Aged Out No longe r eligible based on patient's age to complete this topic Insurance [facility] ([id number]) Care Teams Room Service Waiter/Waitress Relationship Specialty Start Date End Date Brigitte Foley MD [address] [place] [address] PCP - General Internal Medicine 08/05/24
--- OUTSIDE RECORDS SUMMARY | 2024-08-26 20:46 | XMS_ITS | Encounter Summary ---
Author Organization [facility] Healthcare Address [address] [place] [address] Care Team Providers Care Carpenter Cradle And Dolly Name Role Phone Chau Anaya MD Unavailable + [phone] Brigitte Foley MD Primary Care Provider [phone] Reason for Visit * Reason Onset Date Comments Medical Records Request 07/26/2024 Encounter Details Date Type Department Care Team (Late st Contact Info) Description 07/26/2024 Telephone [facility] Medical Group at [address] [address] Brigitte Foley MD [address] [place], [place] [id number] [place] [address] Medical Records Request Social History Tobacco [...] PM CST Records faxed to specialist office AND SEAFOOD CLERK * Telephone Encounter - Tiara Ocampo MA - 07/26/2024 1:41 PM MEAT AND SEAFOOD CLERK Please see pt's request below for records to be sent to Dr Panchal's office regarding her hyperthyroidism diagnosis. AND SEAFOOD CLERK * Telephone Encounter - Aydee Alston - 07/26/2024 1:21 PM CST Medical Records Request Request Type: Records Request Practice Will Complete What records are being requested:the medical records that pertains to hyperthyroidism Who will the records be sent to (if being sent to another doctor, list the doctor's name and specialty)? [facility]II Alexander Phone #: [phone] Fax #: [phone] Address: [address] [place], [place] [id number] Date Needed: prashant Delivery Method: Fax Fax number to use for return of records: [phone] Additional Comments/Concerns: they need the medical records before they schedule the appointment Does the message need to be routed? Yes-Action Needed AND SEAFOOD CLERK documented in this encounter Plan of Treatment [...] Reduce the likelihood of falling Lifestyle No aFtemeh Noble, RN Note: Below are four things [...] on stairs Contact your local community or [facility] for information on exercise, fall prevention programs, or options for improving home safety. documented as of this encounter Visit Diagnoses Not on filedocumented in this encounter Care Teams Carpenter Cradle And Dolly Relationship Specialty Start Date End Date Brigitte Foley MD [address] [facility] [address] [place], [place] [id number] PCP - General Internal Medicine 04/17/23 Chau Anaya MD [address] [facility] [address] [place], [place] [id number] Consulting Physician Interventional Cardiology 04/06/22 documented as of this encounter
--- OUTSIDE RECORDS SUMMARY | 2024-08-26 20:46 | XMS_ITS | Encounter Summary ---
Author Organization [facility] Healthcare Address [address] [place] [address] Care Team Providers Care Bus Info Consultant Name Role Phone Chau Anaya MD Unavailable + [phone] Brigitte Foley MD Primary Care Provider [phone] Reason for Visit * Reason Comments Arm Pain L arm pain that radi ates down L arm, to upper back and neck started yesterday. States she got her flu and covid vaccines 3 weeks ago and was fine and then started these symptoms yesterday Encounter Details Date Type Department Care Team (Late st Contact Info) Description 08/26/2024 4:30 PM HORIZONTAL BORING MILL SET UP OPERATOR Office Visit [facility] at [address] [address] Brandi Bradley NP [address] [place] [address] [address] [place] [address] Left-sided chest pain (Primary Dx); [...] Comments Blood Pressure 142/60 08/26/2024 4:29 PM HORIZONTAL BORING MILL SET UP OPERATOR Pulse 86 08/26/2024 4:29 PM HORIZONTAL BORING MILL SET UP OPERATOR Temperature 36.5 C (97.7 F) 08/26/2024 4:29 PM HORIZONTAL BORING MILL SET UP OPERATOR Respiratory Rate 24 08/26/2024 4:29 PM HORIZONTAL BORING MILL SET UP OPERATOR Oxygen Saturation 98% 08/26/2024 4:29 PM HORIZONTAL BORING MILL SET UP OPERATOR Inhaled Oxygen Concentration - - Weight 116.1 kg (256 lb) 08/26/2024 4:29 PM HORIZONTAL BORING MILL SET UP OPERATOR Height - - Body Mass Index 43.94 08/02/2024 1:21 PM HORIZONTAL BORING MILL SET UP OPERATOR documented in this encounter Plan of [...] limb documented in this encounter Care Teams Bus Info Consultant Relationship Specialty Start Date End Date Brigitte Foley MD [address] [place] [address] PCP - General Internal Medicine 04/17/23 Chau Anaya MD [address] [place] [id number] Consulting Physician Interventional Cardiology 04/06/22 documented as of this encounter
--- OUTSIDE RECORDS SUMMARY | 2024-08-26 20:46 | XMS_ITS | Encounter Summary ---
Author Organization [facility] Healthcare Address [address] [place] [address] Care Team Providers Care Patient Access Name Role Phone Chau Anaya MD Unavailable + [phone] Brigitte Foley MD Primary Care Provider [phone] Encounter Details Date Type Department Care Team (Late st Contact Info) Description 08/07/2024 Telephone [facility] Medical Group at [address] [address] Brigitte Foley MD [address] [place], [place] [phone] [place] [address] Social History Tobacco Use Types Packs/Day [...] Tiara Ocampo MA - 08/09/2024 1:18 PM PLUSH WEAVER Left vm msg for pt to call us back regarding her lab order request below H WEAVER * Telephone Encounter - Tiara Ocampo MA - 08/09/2024 9:07 AM PLUSH WEAVER Will reach out to Ms. Cevallos regarding her request H WEAVER documented in this encounter Plan of Treatment [...] on filedocumented in this encounter Care Teams Patient Access Relationship Specialty Start Date End Date Brigitte Foley MD [address] [facility] [address] [place] [id number] PCP - General Internal Medicine 04/17/23 Chau Anaya MD [address] [facility] [address] [place] [address] Consulting Physician Interventional Cardiology 04/06/22 documented as of this encounter
--- OUTSIDE RECORDS SUMMARY | 2024-08-26 20:46 | XMS_ITS | Encounter Summary ---
Author Organization [facility] Healthcare Address [address] [place] [address] Care Team Providers Care Edge Polisher Name Role Phone Chau Anaya MD Unavailable + [phone] Brigitte Foley MD Primary Care Provider [phone] Reason for Visit * Reason Onset Date Comments Back Pain 06/05/2024 Encounter Details Date Type Department Care Team (Late st Contact Info) Description 06/26/2024 Nurse Triage [facility] Medical Group at [address] [address] Brigitte Foley MD [address] [place], [place] [phone] [place] [address] Social History Tobacco Use Types Packs/Day [...] CMA - 07/01/2024 10:08 AM CST Noted. ING DEPARTMENT HELPER * Telephone Encounter - Harriett Bob MA - 07/01/2024 9:45 AM CST Pt is scheduled already ING DEPARTMENT HELPER * Telephone Encounter - Ha Oro CMA - 07/01/2024 9:37 AM CST Can you please schedule? ING DEPARTMENT HELPER * Telephone Encounter - Sarah Aguirre RN - 06/26/2024 2:54 PM CST Reason for Disposition MODERATE back pain (e.g., interferes with normal activities) and present > 3 days Protocols used: Back [id number] Pt is an 83 y/o female with [...] appt and is requesting to see a assistant food service manager. Please contact pt at [phone]. Care advice given including meds as directed and heat to area. Pt verbalized understanding and willcall with worsening sx's. ING DEPARTMENT HELPER * Telephone Encounter - Sarah Aguirre RN - 06/26/2024 2:45 PM CST Regarding: camila back pain ----- Message from Adriana Piña sent at 06/26/2024 2:39 PM PLATING DEPARTMENT HELPER ----- Symptom Based Call Chief Complaint(s): severe [...] message need to be routed? Yes-Action Needed ING DEPARTMENT HELPER documented in this encounter Plan of Treatment Not on file documented as of this encounter Visit Diagnoses Not on filedocumented in this encounter Care Teams Edge Polisher Relationship Specialty Start Date End Date Brigitte Foley MD [address] [facility] [address] [place] [address] PCP - General Internal Medicine 04/17/23 Chau Anaya MD [address] [facility] [address] [place] [address] Consulting Physician Interventional Cardiology 04/06/22 documented as of this encounter
--- OUTSIDE RECORDS SUMMARY | 2024-08-26 20:46 | XMS_ITS | Clinical Summary ---
Author Organization [facility] Address [address] [place] [address] Care Team Providers Care Senior Project Coordinator Name Role Phone Haley Lerma MD Unavailable [phone] Brigitte Foley MD Primary Care Provider [phone] Source Comments [facility],non-owned Affiliates and Associated Physician Practices is amultiple site organization consisting of ambulatory clinics and hospital sitesin [place], [place], [place] and [place]. This disclosure is being madepursuant to the Care Everywhere program and may not contain all information available regarding this patient. Last updated 18.[facility] Allergies Active Allergy Reactions Criticality Noted Date [...] fluticasone propionate (FLONASE) 50 MCG/ACT nasal spray Hemet 1 (one) spray into the nose at [...] Department Care Team Description 06/11/2024 2:15 PM CHINESE MEDICINE PRACTITIONER Office Visit [facility] Medical [facility] - Rheumatology [id number] [address] Haley Lerma MD Rheumatoid arthritis [...] file Gender Identity Female 08/19/2020 8:35 AM CHINESE MEDICINE PRACTITIONER Sexual Orientation Not on file Last Filed Vital Signs Vital Sign Reading Time Taken Comments Blood Pressure 128/80 06/11/2024 2:27 PM CHINESE MEDICINE PRACTITIONER Pulse 91 06/11/2024 2:27 PM CHINESE MEDICINE PRACTITIONER Temperature 36.3 C (97.4 F) 10/06/2022 1:38 PM CDT Respiratory Rate 18 03/11/2018 6:41 PM CDT Oxygen Saturation 97% 06/11/2024 2:27 PM CHINESE MEDICINE PRACTITIONER Inhaled Oxygen Concentration - - Weight 110.7 kg (244 lb) 06/11/2024 2:27 PM CHINESE MEDICINE PRACTITIONER Height 162.6 cm (5' 4 ) 06/11/2024 2:27 PM CHINESE MEDICINE PRACTITIONER Body Mass Index 41.88 06/11/2024 2:27 PM CHINESE MEDICINE PRACTITIONER Plan of Treatment Upcoming Encounters Date Type Department Care Team (Late st Contact Info) Description 10/17/2024 2:30 PM CDT Office Visit [facility] Medical [facility] - Rheumatology [id number] [facility] [address] [place] [address] Gilma Ann, PROTOTYPE FABRICATOR-PAPER MAKING MACHINE OPERATOR [id number] [facility] [address] [place] [address] Health Maintenance Due Date Last [...] B12 FOLATE PANEL Routine 06/18/2024 2:47 PM CHINESE MEDICINE PRACTITIONER Rheumatoid arthritis without rheumatoid factor, multiple sites (HCC) Polyarthralgia Chronic radicular pain of lower back High risk medications (not anticoagulants) long-term use Immunosuppressed status (HCC) Fibromyalgia Vitamin D deficiency Osteopenia of multiple sites ERYTHROCYTE SEDIMENTATION RATE Routine 06/18/2024 2:47 PM CHINESE MEDICINE PRACTITIONER Rheumatoid arthritis without rheumatoid factor, multiple sites (HCC) Polyarthralgia Chronic radicular pain of lower back High risk medications (not anticoagulants) long-term use Immunosuppressed status (HCC) Fibromyalgia Vitamin D deficiency Osteopenia of multiple sites C-REACTIVE PROTEIN Routine 06/18/2024 2: 47 PM CHINESE MEDICINE PRACTITIONER Rheumatoid arthritis without rheumatoid factor, multiple sites (HCC) Polyarthralgia Chronic radicular pain of lower back High risk medications (not anticoagulants) long-term use Immunosuppressed status (HCC) Fibromyalgia Vitamin D deficiency Osteopenia of multiple sites COMPREHENSIVE METABOLIC PANEL Routine 06/18/2024 2:47 PM CHINESE MEDICINE PRACTITIONER Rheumatoid arthritis without rheumatoid factor, multiple sites (HCC) Polyarthralgia Chronic radicular pain of lower back High risk medications (not anticoagulants) long-term use Immunosuppressed status (HCC) Fibromyalgia Vitamin D deficiency Osteopenia of multiple sites CBC W AUTO DIFFERENTIAL Routine 06/18/2024 2:47 PM CHINESE MEDICINE PRACTITIONER Rheumatoid arthritis without rheumatoid factor, multiple sites (HCC) Polyarthralgia Chronic radicular pain of lower back High risk medications (not anticoagulants) long-term use Immunosuppressed status (HCC) Fibromyalgia Vitamin D deficiency Osteopenia of multiple sites from Last 3 Months Results * C-REACTIVE PROTEIN (06/18/2024 2:47 PM CHINESE MEDICINE PRACTITIONER) Pathologist [facility] C-Reactive Protein 5 0 - 10 mg/L [facility] INSURANCE BILL Blood BLOOD SPECIMEN / Unknown 06/18/2024 2:47 PM CHINESE MEDICINE PRACTITIONER 06/18/2024 Narrative [facility] INSURANCE BILL - 06/19/2024 1:08 PM CHINESE MEDICINE PRACTITIONER Performed at: [address] [place] [id number] Batcher Operator: Faraz Rojas PhD, Phone: [phone] Haley Lerma MD LAB - CHEMISTRY ORDE RABHAYLEY Performing Organization Address City/[facility]/ZIP Co de Phone Number [facility] INSURANCE BILL [address] [place] [address] * ERYTHROCYTE SEDIMENTATION RATE (06/18/2024 2:47 PM CHINESE MEDICINE PRACTITIONER) Pathologist [facility] Erythrocyte Sedimentation Rate Westergren 11 0 - 40 mm/hr [facility] INSURANCE BILL Blood BLOOD SPECIMEN / Unknown 06/18/2024 2:47 PM CHINESE MEDICINE PRACTITIONER 06/18/2024 Narrative [facility] INSURANCE BILL - 06/19/2024 11:09 AM CHINESE MEDICINE PRACTITIONER Performed at: [address] [place] [id number] Batcher Operator: Faraz Rojas PhD, Phone: [phone] Haley Lerma MD LAB - HEMATOLOGY ORD ERABLES [facility] INSURANCE BILL [address] [place] [address] * (ABNORMAL) CBC WITH DIFFERENTIAL (06/18/2024 2:47 PM CHINESE MEDICINE PRACTITIONER) Pathologist [facility] WBC 7.3 3.4 - 10.8 x10E3/uL [facility] [...] BLOOD SPECIMEN / Unknown 06/18/2024 2:47 PM CHINESE MEDICINE PRACTITIONER 06/18/2024 Narrative [facility] INSURANCE BILL - 06/19/2024 7:10 AM CHINESE MEDICINE PRACTITIONER Performed at: 01 - [facility] [id number] [place], [place] [id number] Batcher Operator: Faraz Rojas PhD, Phone: [phone] Haley Lerma MD LAB - HEMATOLOGY ORD ERABLES [facility] INSURANCE BILL [address] [place] [address] * (ABNORMAL) COMPREHENSIVE METABOLIC PANEL (06/18/2024 2:47 PM CHINESE MEDICINE PRACTITIONER) Glucose 92 70 - 99 mg/dL [facility] [...] BLOOD SPECIMEN / Unknown 06/18/2024 2:47 PM CHINESE MEDICINE PRACTITIONER 06/18/2024 Narrative [facility] INSURANCE BILL - 06/19/2024 7:10 AM CHINESE MEDICINE PRACTITIONER Performed at: 01 - [facility] [address] [place], [place] [id number] Batcher Operator: Faraz Rojas PhD, Phone: [phone] Haley Lerma MD LAB - CHEMISTRY ELISE HOLLY [facility] INSURANCE BILL [address] [place] [address] * VITAMIN B12 FOLATE PANEL (06/18/2024 2:47 PM CHINESE MEDICINE PRACTITIONER) Vitamin B12 466 232 - 1,245 pg/mL [facility] INSURANCE BILL Folate 18.0 >3.0 ng/mL [facility] INSURANCE BILL Comment: A serum folate concentration of less than 3.1 ng/mL is considered to represent clinical deficiency. Blood BLOOD SPECIMEN / Unknown 06/18/2024 2:47 PM CHINESE MEDICINE PRACTITIONER 06/18/2024 Narrative [facility] INSURANCE BILL - 06/19/2024 10:11 AM CHINESE MEDICINE PRACTITIONER Performed at: 01 - [facility] [address] [place], [place] [id number] Batcher Operator: Faraz Rojas PhD, Phone: [phone] Haley Lerma MD LAB - CHEMISTRY ELISE HOLLY [facility] INSURANCE BILL [address] [place] [address] from Last 3 Months Care Teams Senior Project Coordinator Relationship Specialty Start Date End Date Brigitte Foley MD [address] [facility] [address], [place] [address] PCP - General Internal Medicine 06/08/23 [place] [id number] [id number] Rheumatology 06/11/19
--- OUTSIDE RECORDS SUMMARY | 2024-08-26 20:46 | XMS_ITS | Patient Health Summary ---
Author Organization [facility] Address [address] [address] Care Team Providers Care Neurodiagnostic Technician Name Role Phone Haley Lerma MD Unavailable [phone] Brigitte Foley MD Primary Care Provider [phone] Note from [facility],non-owned Affiliates and Associated Physician Practices is amultiple site organization consisting of ambulatory clinics and hospital sitesin [place], [place], [place] and [place]. This disclosure is being madepursuant to the Care Everywhere program and may not contain all information available regarding this patient. Last updated 18.[facility] Allergies * Codeine(GI Discomfort) Medications * [...] fluticasone propionate (FLONASE) 50 MCG/ACT nasal spray [place] 1 (one) spray into the nose at [...] file Gender Identity Female 08/19/2020 8:35 AM CLINICAL PHYSICIAN ASSISTANT Sexual Orientation Not on file Last Filed Vital Signs Vital Sign Reading Time Taken Comments Blood Pressure 128/80 06/11/2024 2:27 PM CLINICAL PHYSICIAN ASSISTANT Pulse 91 06/11/2024 2:27 PM CLINICAL PHYSICIAN ASSISTANT Temperature 36.3 C (97.4 F) 10/06/2022 1:38 PM CDT Respiratory Rate 18 03/11/2018 6:41 PM CDT Oxygen Saturation 97% 06/11/2024 2:27 PM CLINICAL PHYSICIAN ASSISTANT Inhaled Oxygen Concentration - - Weight 110.7 kg (244 lb) 06/11/2024 2:27 PM CLINICAL PHYSICIAN ASSISTANT Height 162.6 cm (5' 4 ) 06/11/2024 2:27 PM CLINICAL PHYSICIAN ASSISTANT Body Mass Index 41.88 06/11/2024 2:27 PM CLINICAL PHYSICIAN ASSISTANT Procedures * VITAMIN B12 FOLATE PANEL(Performed 06/18/2024) [...] (shortness of breath) * ISTAT CHEM8+ PANEL TEJAS(Performed 03/11/2018) * BMP W CA+ NOTIFICATION(Performed 03/11/2018) * CBC W AUTO DIFFERENTIAL(Performed 03/11/2018) * D-DIMER(Performed 03/11/2018) * NT-PRO BNP(Performed 03/11/2018) Results * C-REACTIVE PROTEIN (06/18/2024 2:47 PM CLINICAL PHYSICIAN ASSISTANT) Only the most recent of13 resultswithin the time period is included. C-Reactive Protein 5 0 - 10 mg/L [facility] INSURANCE BILL Blood BLOOD SPECIMEN / Unknown 06/18/2024 2:47 PM CLINICAL PHYSICIAN ASSISTANT 06/18/2024 Narrative [facility] INSURANCE BILL - 06/19/2024 1:08 PM CLINICAL PHYSICIAN ASSISTANT Performed at: [address] [place] [id number] Director Foundation: Faraz Rojas PhD, Phone: [phone] Haley Lerma MD LAB - CHEMISTRY ELISE HOLLY Performing Organization Address [facility] de Phone Number [facility] INSURANCE BILL [address] [place] [address] * ERYTHROCYTE SEDIMENTATION RATE (06/18/2024 2:47 PM CLINICAL PHYSICIAN ASSISTANT) Only the most recent of13 resultswithin the time period is included. Erythrocyte Sedimentation Rate Westergren 11 0 - 40 mm/hr [facility] [employer] [facility] INSURANCE BILL Blood BLOOD SPECIMEN / Unknown 06/18/2024 2:47 PM CLINICAL PHYSICIAN ASSISTANT 06/18/2024 Narrative [facility] INSURANCE BILL - 06/19/2024 11:09 AM CLINICAL PHYSICIAN ASSISTANT Performed at: [address] [place] [id number] Director Foundation: Faraz Rojas PhD, Phone: [phone] Haley Lerma MD LAB - HEMATOLOGY ORD ERABLES [facility] INSURANCE BILL [address] [place] [address] * (ABNORMAL) CBC WITH DIFFERENTIAL (06/18/2024 2:47 PM CLINICAL PHYSICIAN ASSISTANT) Only the most recent of13 resultswithin the [...] BLOOD SPECIMEN / Unknown 06/18/2024 2:47 PM CLINICAL PHYSICIAN ASSISTANT 06/18/2024 Narrative [facility] INSURANCE BILL - 06/19/2024 7:10 AM CLINICAL PHYSICIAN ASSISTANT Performed at: 01 - [facility] [employer] [employer] [id number] Director Foundation: Faraz Rojas PhD, Phone: [phone] Haley Lerma MD LAB - HEMATOLOGY ORD ERABLES [facility] INSURANCE BILL [address] [place] [address] * (ABNORMAL) COMPREHENSIVE METABOLIC PANEL (06/18/2024 2:47 PM CLINICAL PHYSICIAN ASSISTANT) Only the most recent of13 resultswithin the [...] BLOOD SPECIMEN / Unknown 06/18/2024 2:47 PM CLINICAL PHYSICIAN ASSISTANT 06/18/2024 Narrative [facility] INSURANCE BILL - 06/19/2024 7:10 AM CLINICAL PHYSICIAN ASSISTANT Performed at: 01 - [facility] [address] [id number] Director Foundation: Faraz Rojas PhD, Phone: [phone] Haley Lerma MD LAB - CHEMISTRY ELISE HOLLY Performing Organization Address [facility] de Phone Number [facility] INSURANCE BILL [address] [place] [address] * VITAMIN B12 FOLATE PANEL (06/18/2024 2:47 PM CLINICAL PHYSICIAN ASSISTANT) Pathologist [facility] Vitamin B12 466 232 - 1,245 pg/mL [facility] INSURANCE BILL Folate 18.0 >3.0 ng/mL [facility] INSURANCE BILL Comment: A serum folate concentration of less than 3.1 ng/mL is considered to represent clinical deficiency. Blood BLOOD SPECIMEN / Unknown 06/18/2024 2:47 PM CLINICAL PHYSICIAN ASSISTANT 06/18/2024 Narrative [facility] INSURANCE BILL - 06/19/2024 10:11 AM CLINICAL PHYSICIAN ASSISTANT Performed at: [address] [place] [address] [id number] Director Foundation: Faraz Rojas PhD, Phone: [phone] Haley Lerma MD LAB - CHEMISTRY ELISE HOLLY Performing Organization Address [facility] Phone Number [facility] [address] [place] [address] * VITAMIN D 25-HYDROXY (01/31/2024 2:44 PM CDT) Only the most recent of11 resultswithin the time period is included. Pathologist [facility] Vitamin D, 25 Hydroxy 51.1 30.0 - 100.0 ng/mL [facility] INSURANCE BILL Comment: Vitamin D deficiency has been defined by the [place] of Medicine and an Endocrine Society practice guideline as a level of serum 25-OH vitamin D less than 20 ng/mL (1,2). The Endocrine Society went on to further define vitamin D insufficiency as a level between 21 and 29 ng/mL (2). 1. IOM ([place] of Medicine). 2010. Dietary reference intakes for calcium and D. [place]: The National Academies Press. 2. Esperanza MF, Nikky MCCRARY, Marcus STILES, et al. Evaluation, treatment, and prevention of vitamin D deficiency: an Endocrine Society clinical practice guideline. JCEM. 2010; 96(9):1911-30. Blood BLOOD SPECIMEN / Unknown 01/31/2024 2:44 PM CDT 01/31/2024 Narrative Resulting Agency Comment Lab Testing performed at: [email or web address] [facility] [id number] Haley Lerma MD LAB - CHEMISTRY ELISE HOLLY Performing Organization Address [facility] de Phone Number [facility] INSURANCE BILL [address] [place] [address] * HEPATITIS SCREEN ACUTE ([facility]) (09/28/2023 10:38 [...] Resulting Agency Comment Lab Testing performed at: [facility] [email or web address] [place] [address] [id number] Haley Lerma MD LAB - CHEMISTRY ELISE HOLLY Performing Organization Address [facility] de Phone Number [facility] INSURANCE BILL [address] [place] [address] * INTERPRETATION REFLEXED (09/28/2023 10:38 AM CDT) [...] Resulting Agency Comment Lab Testing performed at: [facility] [email or web address] [place] [address] [id number] Haley Lerma MD LAB - SEROLOGY ORDER ALEXANDRA [facility] INSURANCE BILL [address] [place] [address] * QUANTIFERON TB-GOLD (09/28/2023 10:37 AM CDT) [...] Resulting Agency Comment Lab Testing performed at: [facility] [address] [facility] [phone] Haley Lerma MD LAB - CHEMISTRY ORDE AVNI [facility] INSURANCE BILL [address] [place] [address] * HEPATITIS SCREEN ACUTE (01/13/2021 1:07 PM [...] with a HCV Nucleic Acid Amplification test ([id number]). Blood BLOOD SPECIMEN / Unknown 01/13/2021 1:07 PM CDT 01/13/2021 Narrative Resulting Agency Comment Lab Testing performed at: [facility] [address] [facility] [id number] Haley Lerma MD LAB - CHEMISTRY ELISE HOLLY [facility] INSURANCE BILL [address] [place] [address] * XR HAND BILAT 1VW (06/11/2019 11:35 AM CLINICAL PHYSICIAN ASSISTANT) Anatomical Region Laterality Modality Wrist / Hand, Upper Extremity Ra diographic Imaging 06/11/2019 12:0 0 PM CLINICAL PHYSICIAN ASSISTANT Impressions 06/11/2019 12:02 PM CLINICAL PHYSICIAN ASSISTANT Mild degenerative changes. Reading Radiologist: Balwinder Clancy MD on 06/11/2019 at 12:02 PM Narrative 06/11/2019 12:02 PM CLINICAL PHYSICIAN ASSISTANT Single view bilateral hand. Wrist: Polyarthropathy. Fibromyalgia. [...] SPINE 2 OR 3VW (06/11/2019 11:35 AM CLINICAL PHYSICIAN ASSISTANT) Anatomical Region Laterality Modality Spine Radiographic Monse ging 06/11/2019 11:5 8 AM CLINICAL PHYSICIAN ASSISTANT Impressions 06/11/2019 11:59 AM CLINICAL PHYSICIAN ASSISTANT Degenerative changes involve the caudal levels of the lumbar spine. There is no evidence of acute bony injury. Reading Radiologist: Za Graff MD on 06/11/2019 at 11:59 AM Narrative 06/11/2019 11:59 AM CLINICAL PHYSICIAN ASSISTANT LUMBAR SPINE INDICATION: Low back pain, polyarthralgia [...] BILAT 3VW OR MORE (06/11/2019 11:22 AM CLINICAL PHYSICIAN ASSISTANT) Anatomical Region Laterality Modality Ankle / Foot, Lower Extremity Ra diographic Imaging 06/11/2019 12:5 3 PM CLINICAL PHYSICIAN ASSISTANT Narrative 06/11/2019 12:54 PM CLINICAL PHYSICIAN ASSISTANT EXAM: XR FOOT BILAT 3VW OR MORE*[id number] INDICATION: Bilateral foot pain COMPARISON: none available FINDINGS: There is no displaced fracture or dislocation. There is no osseous destruction. Significant hypertrophic or erosive changes are not identified. Soft tissue swelling is noted in the foot and ankle. Reading Radiologist: Harman Dumont MD on 06/11/2019 at 12:54 PM Procedure Note Harman Dumont MD - 06/11/2019 EXAM: XR FOOT BILAT 3VW OR MORE*[id number] INDICATION: Bilateral foot pain COMPARISON: none available [...] BILAT 3VW OR MORE (06/11/2019 11:19 AM CLINICAL PHYSICIAN ASSISTANT) Anatomical Region Laterality Modality Ankle / Foot, Lower Extremity Ra diographic Imaging 06/11/2019 12:5 4 PM CLINICAL PHYSICIAN ASSISTANT Narrative 06/11/2019 12:58 PM CLINICAL PHYSICIAN ASSISTANT EXAM: XR ANKLE BILAT 3VW OR MORE*[id number] INDICATION: Bilateral ankle pain COMPARISON: none available [...] 06/11/2019 EXAM: XR ANKLE BILAT 3VW OR MORE*[id number] INDICATION: Bilateral ankle pain COMPARISON: none available [...] W BILAT HIP 2VW (06/11/2019 11:17 AM CLINICAL PHYSICIAN ASSISTANT) Anatomical Region Laterality Modality Pelvis, Lower Extremity Radiogra phic Imaging 06/11/2019 12:1 2 PM CLINICAL PHYSICIAN ASSISTANT Impressions 06/11/2019 12:15 PM CLINICAL PHYSICIAN ASSISTANT Mild left hip degenerative changes. Lower lumbar facet arthropathy. Reading Radiologist: Balwinder Clancy MD on 06/11/2019 at 12:15 PM Narrative 06/11/2019 12:15 PM CLINICAL PHYSICIAN ASSISTANT Pelvis AP Left hip 2 views Right [...] JOINTS 3VW OR MORE (06/11/2019 11:16 AM CLINICAL PHYSICIAN ASSISTANT) Anatomical Region Laterality Modality Pelvis, Lower Extremity Radiogra phic Imaging 06/11/2019 12:1 2 PM CLINICAL PHYSICIAN ASSISTANT Impressions 06/11/2019 12:15 PM CLINICAL PHYSICIAN ASSISTANT Mild left hip degenerative changes. Lower lumbar facet arthropathy. Reading Radiologist: Balwinder Clancy MD on 06/11/2019 at 12:15 PM Narrative 06/11/2019 12:15 PM CLINICAL PHYSICIAN ASSISTANT Pelvis AP Left hip 2 views Right [...] * RADHA PANEL COMPREHENSIVE (06/11/2019 9:58 AM CLINICAL PHYSICIAN ASSISTANT) Anti-dsDNA Quantitative <1 0 - 9 IU/mL [facility] INSURANCE BILL Comment: Negative <5 Equivocal 5 - 9 Positive >9 HAT FORMING MACHINE OPERATOR Antibody <0.2 0.0 - 0.9 AI [facility] [...] Sm (anti-Carroll) SLE 15 - 30% --------- HAT FORMING MACHINE OPERATOR Mixed Connective Tissue Disease 95% (U1 nRNP, SLE 30 - 50% anti-ribonucleoprotein) Polymyositis and/or Dermatomyositis 20% --------- Scl-70 (antiDNA Scleroderma (diffuse) 20 - 35% topoisomerase) Crest 13% --------- Eufemia-1 Polymyositis and/or Dermatomyositis 20 - 40% --------- Centromere B Scleroderma - Crest variant 80% FASTING Blood BLOOD SPECIMEN / Unknown 06/11/2019 9:58 AM CLINICAL PHYSICIAN ASSISTANT 06/11/2019 Narrative Resulting Agency Comment Lab Testing performed at: [employer] [id number] Haley Lerma MD LAB - SEROLOGY ORDER ALEXANDRA Performing Organization Address [facility] de Phone Number [facility] INSURANCE BILL [address] [place] [address] * RHEUMATOID ARTHRITIS PANEL (06/11/2019 9:58 AM CLINICAL PHYSICIAN ASSISTANT) Rheumatoid Factor <10.0 0.0 - 13.9 IU/mL [facility] INSURANCE BILL CCP Antibodies IgG/IgA 9 0 - 19 units [facility] INSURANCE BILL Comment: Negative <20 Weak positive 20 - 39 Moderate positive 40 - 59 Strong positive >59 FASTING Blood BLOOD SPECIMEN / Unknown 06/11/2019 9:58 AM CLINICAL PHYSICIAN ASSISTANT 06/11/2019 Narrative Resulting Agency Comment Lab Testing performed at: [facility] [address] [facility] [id number] Haley Lerma MD LAB - SEROLOGY ORDER ALEXANDRA Performing Organization Address City/[facility] Co de Phone Number [facility] INSURANCE BILL [address] [place] [address] * CK BLOOD (06/11/2019 9:58 AM CLINICAL PHYSICIAN ASSISTANT) CK 38 29 - 168 U/L [facility] INSURANCE BILL Comment:FASTING Blood BLOOD SPECIMEN / Unknown 06/11/2019 9:58 AM CLINICAL PHYSICIAN ASSISTANT 06/11/2019 Narrative Resulting Agency Comment Lab Testing performed at: [facility] [address] [place] [id number] Haley Lerma MD LAB - CHEMISTRY ELISE HOLLY Performing Organization Address [facility] Co de Phone Number [facility] INSURANCE BILL [address] [place] [address] * COMPLEMENT C3 C4 PANEL (06/11/2019 9:58 AM CLINICAL PHYSICIAN ASSISTANT) Complement C3 150 82 - 167 mg/dL [facility] INSURANCE BILL Complement C4 32 14 - 44 mg/dL [facility] INSURANCE BILL Comment:FASTING Blood BLOOD SPECIMEN / Unknown 06/11/2019 9:58 AM CLINICAL PHYSICIAN ASSISTANT 06/11/2019 Narrative Resulting Agency Comment Lab Testing performed at: [facility] [address] [facility] [id number] Haley Lerma MD LAB - CHEMISTRY ELISE HOLLY Performing Organization Address [facility] Co de Phone Number [facility] INSURANCE BILL [address] [place] [address] * CXR - PA & LATERAL (03/11/2018 [...] PA and lateral to ensure stability. Per [facility] protocol, the exam was entered into the thoracic PACs folder for long-term tracking. Initial patient management should remain under the direction of the referring clinician. For assistance in care coordination, please contact [facility] thoracic nurse coordinator ([phone]). Reading Radiologist: Janessa Zamudio MD on 03/12/2018 [...] PA and lateral to ensure stability. Per [facility] protocol, the exam was entered into the thoracic PACs folder for long-term tracking. Initial patient management should remain under the direction of the referring clinician. For assistance in care coordination, please contact [facility] thoracic nurse coordinator ([phone]). Reading Radiologist: Janessa Zamudio MD on 03/12/2018 at 10:56 AM Killian Barnhart MD DIAGNOSTIC IMAGING O RDERABLES * EKG 12-LEAD (03/11/2018 7:11 PM CDT) Ventricular Rate 50 BPM [facility] Atrial Rate 50 BPM [facility] P-R Interval 144 ms [facility] QRS Duration ms 76 ms [facility] Q-T Interval ms 482 ms [facility] QTC Calculation (Bezet) 439 ms [facility] Calculated P [place] 53 degrees [facility] Calculated R [place] 34 degrees [facility] Calculated T [place] 72 degrees [facility] Interpretation EKG Sinus [...] - 145 mmol/L 03/11/2018 7:10 PM CDT [facility] Potassium POCT 4.1 3.5 - 5.1 mmol/L 03/11/2018 7:10 PM CDT [facility] Chloride Venous POCT 102 98 - 107 mmol/L 03/11/2018 7:10 PM CDT [facility] TCO2 Venous POCT 31(H) 23 - 27 mmol/L 03/11/2018 7:10 PM CDT [facility] Anion Gap Venous POCT 16 10 - 20 mmol/L 03/11/2018 7:10 PM CDT [facility] BUN Venous POCT 11 7 - 17 mg/dL 03/11/2018 7:10 PM CDT [facility] Creatinine Venous POCT 0.9 0.5 - 1.3 mg/dL 03/11/2018 7:10 PM CDT [facility] Calcium Ionized Venous POCT 1.18 1.12 - 1.32 mmol/L 03/11/2018 7:10 PM CDT [facility] Sample iSTAT VENOUS 03/11/2018 7:10 PM CDT [facility] CPB iSTAT No 03/11/2018 7:10 PM CDT [facility] Blood BLOOD SPECIMEN / Unknown 03/11/2018 7:05 PM CDT 03/11/2018 7:10 PM CDT Killian Barnhart MD LAB - POINT OF CARE ORDERABLES Performing Organization Address City/[facility]/ZIP Co de Phone Number [facility] [address] [place] [address] * BMP w CA+ IONIZED iSTAT POC in House [place] (03/11/2018 6:58 PM CDT) Comment Notification Label 03/11/2018 8:00 PM CDT [facility] Blood BLOOD SPECIMEN / Unknown 03/11/2018 6:58 PM CDT 03/11/2018 6:59 PM CDT Killian Barnhart MD LAB BLOOD ORDERABLES Performing Organization Address City/[facility]/ZIP Co de Phone Number [facility] [address] [place] [address] * (ABNORMAL) NT-PRO BNP (03/11/2018 6:40 PM CDT) NT-proBNP 757.0(H) <300.0 pg/mL 03/11/2018 8:29 PM CDT [facility] Blood BLOOD SPECIMEN / Unknown Venipuncture / Unknown 03/11/2018 6:40 PM CDT 03/11/2018 8:10 PM CDT Narrative [facility] - 03/11/2018 8:29 PM CDT NT-proBNP [...] Barnhart MD LAB - CHEMISTRY ELISE HOLLY [facility] Organization Address City/State/ZIP Co de Phone Number [facility] [address] [place] [address] * (ABNORMAL) D-DIMER (03/11/2018 6:40 PM CDT) [facility] D-Dimer 1.04(H) 0.17 - 0.5 mg/L FEU 03/11/2018 8:24 PM CDT [facility] Blood BLOOD SPECIMEN / Unknown Venipuncture / Unknown 03/11/2018 6:40 PM CDT 03/11/2018 8:10 PM CDT [facility] - 03/11/2018 8:24 PM CDT The [...] Barnhart MD LAB - COAGULATION OR DERABLES [facility] [address] [place] [address] Care Teams Neurodiagnostic Technician Relationship Specialty Start Date End Date Brigitte Foley MD [address] [address] PCP - General Internal Medicine 06/08/23 [place] [id number] [id number] Rheumatology 06/11/19
--- OUTSIDE RECORDS SUMMARY | 2024-08-26 20:46 | XMS_ITS | Encounter Summary ---
Author Organization [facility] Address [address] [place] [address] Care Team Providers Care Kindergarten Prep Teacher Name Role Phone Chau Anaya MD Unavailable [phone] Brigitte Foley MD Primary Care Provider [phone] Reason for Visit * Reason Onset Date Comments Referral Request 08/26/2024 Encounter Details Date Type Department Care Team (Late st Contact Info) Description 08/26/2024 Telephone [facility] Primary Care at [facility] - [address] [address] Brigitte Foley MD [address] [place] [address] Referral Request Social History Tobacco Use [...] Nancy and advise her that on the [facility] site - Mrs Cevallos does not require an insurance referral ET MAKING MACHINE OPERATOR HELPER * Telephone Encounter - Faby Henderson - 08/26/2024 3:41 PM CST Call Back Caller???s Concern: Nancy with [facility] calling back, stating patient does need a referral. Call disconnected when MAINTENANCE GROUNDSKEEPER went to confirm number for Call back before warm transferring tooffice. Attempted to call number on referral request, got voicemail at office. Patient currently atoffice. Does message need to be routed? Yes-Action Needed ET MAKING MACHINE OPERATOR HELPER * Telephone Encounter - Cece Reynoso - 08/26/2024 3:31 PM CST [facility] site - Authorization/Referral Not Required Dr Chen office is aware ET MAKING MACHINE OPERATOR HELPER * Telephone Encounter - Arleen Beavers - 08/26/2024 3:11 PM CST Referral Provider Name: Dr. Mundo Chen Specialty: podiatry Address: [address] [place] [address] [address] [place] [address], Zip: [place] [address] Diagnosis Code/Symptom/Reason Patient is being seen: L60.0 Date of Appointment: 08/26/24 NPI#: [id number] Tax ID#: [id number] Is insurance in chart up to date? Yes, [employer] Additional Comments: new patient appt Does message need to be routed? Yes-Action Needed ET MAKING MACHINE OPERATOR HELPER documented in this encounter Plan of [...] on filedocumented in this encounter Care Teams Kindergarten Prep Teacher Relationship Specialty Start Date End Date Brigitte Foley MD [address] [facility] [address] [place] [address] PCP - General Internal Medicine 04/17/23 Chau Anaya MD [address] [facility] [address] [place] [id number] Consulting Physician Interventional Cardiology 04/06/22 documented as of this encounter
== END 2024-08-27 00:13 | disposition left against medical advice (07) ==
LOC: ANHED 20:44
PROVIDERS: Emergency Medicine
DX: R07.9 Chest pain, unspecified (principal)
CPT/HCPCS: 36415; 71046; 80053; 83690; 84484; 85025; 85610; 85730; 93005; 99199